=== PATIENT | female | born 1945 | race Caucasian/White ===

== ENCOUNTER 2021-12-03 16:27 | Emergency (ER) | payer MEDICARE, SELFPAY ==
--- NOTE | ~2021-12-03 | XR_ITS ---
EXAMINATION: XR CHEST CLINICAL INFORMATION: Chest pain. COMPARISON: None TECHNIQUE: 2 views of the chest were obtained. FINDINGS: The lungs are clear. The heart and mediastinal structures are unremarkable. Moderate thoracolumbar levoscoliosis. XR/XR chest 2V IMPRESSION: No acute cardiopulmonary process.
--- NOTE | 2021-12-03 16:34 | ECG_ITS ---
Test Reason : CHEST PAIN Blood Pressure : / mmHG Vent. Rate : 071 BPM Atrial Rate : 071 BPM P-R Int : 128 ms QRS Dur : 068 ms QT Int : 392 ms P-R-T Axes : 064 073 073 degrees QTc Int : 425 ms Normal sinus rhythm Possible Left atrial enlargement Nonspecific ST abnormality Abnormal ECG No previous ECGs available Referred By: Generic ED Physician Electronically Signed By:Jose R Hollingsworth
[2021-12-03 16:41] VITALS: BP 151/85; BP 166/86; PULSE 75; PULSE 80; RESP 14; TEMP 37.1; O2SAT 96; O2SAT 98; BMI 19.5
--- NOTE | 2021-12-03 16:59 | ED_ITS ---
HPI - Chest Pain General Chief Complaint: Chest Pain Stated Complaint: CP Time Seen by Provider: 12/03/21 16:39 Source: patient and EMS Mode of arrival: EMS Limitations: no limitations History of Present Illness HPI narrative: 76 yo female with history of osteoporosis, GERD here with complaints left sided chest pain with radiation to the left breast which occurred while at rest while patient was talking on the phone at 4pm. Pain lasted 15-20 minutes and is described as sharp/stabbing pain. No associated diaphoresis, nausea/vomiting, shortness of breath, dizziness, palpitations. 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 No chest pain on arrival to ED. Patient denies recent cough, cold, fevers, chills, leg swelling or leg pain. No recent travel. Patient does tell me her sister yesterday and her upcoming is this . Related Data Allergies Allergy/AdvReac Type Severity Reaction Status Date / Time No Known Allergies Allergy Verified 12/03/21 16:51 Review of Systems Review of Systems: Yes all other systems are reviewed and are negative Constitutional: Constitutional: Reports no additional constitutional complaints, Denies body ache(s), Denies chills, Denies fever(s), Denies headache(s) and Denies weakness Eyes: Eyes: Reports no additional eye complaints and Denies change in vision ENT: Reports system reviewed and no additional complaints, except as documented, Denies dizziness, Denies headache(s), Denies nasal congestion, Denies nasal discharge and Denies neck pain Cardiovascular: Cardiovascular: Reports no additional cardiovascular complai nts, Reports chest pain, Denies leg edema and Denies dyspnea Respiratory: Respiratory: Reports no additional respiratory complaints, Denies cough and Denies dyspnea Gastrointestinal: Gastrointestinal: Reports no additional gastrointestinal complaints, Denies abdominal pain, Denies diarrhea, Denies nausea and Denies vomiting Genitourinary: Genitourinary: Reports no additional female genitourinary complaints and Denies urinary incontinence Musculoskeletal: Musculoskeletal: Reports no additional musculoskeletal complaints, Denies back pain, Denies arthralgias, Denies joint swelling, Denies neck pain, Denies numbness and Denies tingling Integumentary/Breasts: Skin/Breast: Reports system reviewed and no additional complaints, except as docu and Denies rash Neurologic: Reports system reviewed and no additional complaints, except as documented, Denies Abnormal speech present, Denies dizziness, Denies headache(s), Denies numbness, Denies tingling and Denies weakness PMFSH Past Medical History Attestation statement: The following information was validated with the patient. Source: old records reviewed and nursing notes reviewed Medical History (Updated 12/03/21 @ 21:19 by Annmarie Solis NP) GERD (gastroesophageal reflux disease) Osteoporosis Social History Social History (Updated 12/03/21 @ 17:05 by Annmarie Solis NP) Alcohol intake: current Alcohol intake frequency: holidays/special occasions only Patient Tobacco Use Status: Never used Tobacco Advance Directives: Yes Advance Directives Information Provided: No Advance Directives on File: No Physical Exam Vital Signs: Vital Signs: Last Vital Signs Temp 98.7 F 12/03/21 16:41 Pulse 76 12/03/21 21:40 Resp 14 12/03/21 21:40 BP 183/79 H 12/03/21 21:40 Pulse Ox 98 12/03/21 21:40 O2 Del Method 12/03/21 21:40 BMI result Body Mass Index 19.5 Const: General: cooperative, healthy appearing, comfortable and no acute distress Orientation/consciousness: patient oriented x3 Limitations: no limitations HEENT: Head: Yes normal to inspection Ears: hearing grossly normal bilaterally General nose exam: Normal external nose present Face and sinus: Yes normal facial exam Mouth: Normal oral and palatal mucosa present Throat: Yes posterior oropharynx normal Eyes: General: appearance normal, both eyes and all related structures Pupils: Equal, round and reactive pupils present Neck: Neck: Yes normal visual inspection Chest: Chest palpation & inspection: normal inspection of the chest Resp: Effort & Inspection: normal respiratory effort Auscultation: clear to auscultation bilaterally Cardio: Rate: regular rate Rhythm: regular rhythm Peripheral pulses: Peripheral pulses 2+ throughout GI: Inspection: Yes normal to inspection Palpation (GI): Soft to palpation and nontender Auscultation: normal bowel sounds Back/Spine/Pelvis: Thoracic/Lumbar Spine: thoracic and lumbar spine normal to inspection Skin: General skin exam: no rashes or lesions noted Neuro: General: patient oriented x3, no focal motor deficits and normal sensation to monofilament Cranial nerves: Yes Equal, round and reactive pupils present Cognition (Neuro): normal cognition Speech: No Abnormal speech present Gait exam (Neuro): Normal gait present Motor exam (neuro): 5/5 motor strength present throughout Extrem: General: Yes normal to inspection, Yes no pedal edema and Yes no calf tenderness Course Course Course Narrative: 183-initial set of labs, chest x-ray and EKG show no acute finding. Plan to repeat a 3 hour troponin. Patient has had no chest pain since being in the emergency room. Reevaluation(s) Reevaluation #1: Second troponin unchanged. Patient has had no chest pain while being in the emergency department. She feels well. Heart score 2 for age. Chest pain is at ypical for ACS. Discussed this with the patient and her daughter. Plan for discharge home with follow-up with her primary care doctor outpatient. She will return for any returning chest pain, shortness of breath, vomiting or diaphoresis. Comfortable plan for discharge home. 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 No chest pain here. Atypical for ACS D/t age still consider ACS so will obtain EKG, labs, CXR Already received ASA Differential Diagnosis Differential diagnosis: Likely chest pain Medical Records Data Attestation: I reviewed the patient's medical records. Lab Data Attestation: I reviewed the patient's lab results. Result diagrams: 12/03/21 17:39 12/03/21 17:38 Labs: Lab Results 12/03/21 12/03/21 12/03/21 Range/Units 17:38 17:38 17:39 WBC 4.8 (4.8-10.8) X10*3/uL RBC 3.58 L (4.20-5.50) X10*6/uL Hgb 12.0 (12.0-16.0) g/dl Hct 36.3 L (37.0-47.0) % MCV 101.4 H (80.0-98.0) fL MCH 33.5 H (27.0-33.0) pg MCHC 33.1 (31.0-35.0) g/dl RDW 14.1 (11.0-16.0) % Plt Count 223 (160-400) X10*3/uL MPV 10.6 (9.4-12.3) fL Immature Gran % (Auto) 0.2 (0.0-0.4) % Neut % (Auto) 64.3 (45-73) % Lymph % (Auto) 23.3 (20-40) % Garfield % (Auto) 10.5 (2-11) % Eos % (Auto) 1.1 (0-4) % Baso % (Auto) 0.6 (0-2) % Lymph # (Auto) 1.1 L (1.2-4.9) X10*3/uL Garfield # (Auto) 0.5 (0.1-1.2) X10*3/uL Eos # (Auto) 0.1 (0.0-0.4) X10*3/uL Baso # (Auto) 0.0 (0.0-0.2) X10*3/uL Abs Immat Gran (auto) 0.01 (0.00-0.03) X10*3/uL Absolute Neuts (auto) 3.1 (2.0-8.3) x10*3/uL Absolute Nucleated RBC 0.000 (0.0-0.012) X10*3/uL Nucleated RBC % (auto) 0.0 (0.0-0.2) /100WBC PT (9.9-13.0) SEC INR (0.9-1.1) Sodium 142 (135-145) mmol/L Potassium 4.1 (3.3-5.1) mmol/L Chloride 107 (96-108) mmol/L Carbon Dioxide 27 (22-29) mmol/L Anion Gap 12 (12-20) BUN 20 H (9-16) mg/dL Creatinine 0.81 (0.5-1.4) mg/dL Estim Creat Clear Calc 47.3 Estimated GFR > 60 Random Glucose 107 (60-115) mg/dL Calcium 9.5 (8.4-10.2) mg/dL Magnesium 2.3 (1.6-2.6) mg/dL Total Bilirubin 0.4 (0.0-1.0) mg/dL Direct Bilirubin < 0.2 (0.0-0.5) mg/dL AST 27 (5-31) U/L ALT 30 (0-31) U/L Alkaline Phosphatase 75 (39-117) U/L Troponin I High Sens 3.6 (<3.5-17.0) ng/L Total Protein 6.3 L (6.5-8.0) g/dL Albumin 4.0 (3.5-5.0) g/dL COVID-19 ([facility]) (Negative) COVID-19 Clin Com 12/03/21 12/03/21 12/03/21 Range/Units 17:39 17:40 20:28 WBC (4.8-10.8) X10*3/uL RBC (4.20-5.50) X10*6/uL Hgb (12.0-16.0) g/dl Hct (37.0-47.0) % MCV (80.0-98.0) fL MCH (27.0-33.0) pg MCHC (31.0-35.0) g/dl RDW (11.0-16.0) % Plt Count (160-400) X10*3/uL MPV (9.4-12.3) fL Immature Gran % (Auto) (0.0-0.4) % Neut % (Auto) (45-73) % Lymph % (Auto) (20-40) % Garfield % (Auto) (2-11) % Eos % (Auto) (0-4) % Baso % (Auto) (0-2) % Lymph # (Auto) (1.2-4.9) X10*3/uL Garfield # (Auto) (0.1-1.2) X10*3/uL Eos # (Auto) (0.0-0.4) X10*3/uL Baso # (Auto) (0.0-0.2) X10*3/uL Abs Immat Gran (auto) (0.00-0.03) X10*3/uL Absolute Neuts (auto) (2.0-8.3) x10*3/uL Absolute Nucleated RBC (0.0-0.012) X10*3/uL Nucleated RBC % (auto) (0.0-0.2) /100WBC PT 11.0 (9.9-13.0) SEC INR 1.0 (0.9-1.1) Sodium (135-145) mmol/L Potassium (3.3-5.1) mmol/L Chloride (96-108) mmol/L Carbon Dioxide (22-29) mmol/L Anion Gap (12-20) BUN (9-16) mg/dL Creatinine (0.5-1.4) mg/dL Estim Creat Clear Calc Estimated GFR Random Glucose (60-115) mg/dL Calcium (8.4-10.2) mg/dL Magnesium (1.6-2.6) mg/dL Total Bilirubin (0.0-1.0) mg/dL Direct Bilirubin (0.0-0.5) mg/dL AST (5-31) U/L ALT (0-31) U/L Alkaline Phosphatase (39-117) U/L Troponin I High Sens 4.3 (<3.5-17.0) ng/L Total Protein (6.5-8.0) g/dL Albumin (3.5-5.0) g/dL COVID-19 ([facility]) Negative (Negative) COVID-19 Clin Com See Note Imaging Data Chest x-ray: Attestation: I personally reviewed and interpreted this imaging study as follows: Radiologist's impression: [address] [address] XRay Report Signed Patient: Jocelin Edwards MR#: [id number] : 1945 Acct:[id number] Age/Sex: 76 / F ADM Date: 12/03/21 Loc: .ED Attending Dr: Ordering Physician: Annmarie Solis NP Date of Service: 12/03/21 Procedure(s): XR chest 2V Accession Number(s): [id number] cc: Annmarie Solis NP~ EXAMINATION: XR CHEST CLINICAL INFORMATION: Chest pain. COMPARISON: None TECHNIQUE: 2 views of the chest were obtained. FINDINGS: The lungs are clear. The heart and mediastinal structures are unremarkable. Moderate thoracolumbar levoscoliosis. XR/XR chest 2V IMPRESSION: No acute cardiopulmonary process. ECG Data ECG #1: Attestation: I personally reviewed and interpreted this ECG as follows: ECG interpretation date: 12/03/21 ECG interpretation time: 16:28 Interpretation: NSR with rate 71, normal pr, normal qrs, normal qt Discharge Plan Discharge Clinical Impression: Chest pain Patient Disposition: Home, Self-Care Instructions: Chest Pain (DC) Additional Instructions: Your blood work, EKG and x-ray are all very reassuring. This tells us that you are at low risk for having had a cardiac event Please return for any chest pain, diaphoresis, vomiting, shortness of breath Please follow-up with your regular primary care doctor Referrals: Physician,Nonstaff [Primary Care Provider] - 1 week Interventions: ED Discharge Assessment Last Done: 12/03/21 21:56 Discharge Date/Time: 12/03/21 21:56
[2021-12-03 17:44] LABS: MANUAL DIFF FLAG NO
[2021-12-03 18:02] LABS: COVID-19 Test Negative (Negative)
[2021-12-03 18:04] LABS: Basophils Percent Auto 0.6 % (0-2); Eosinophils Absolute Auto 0.1 X10*3/uL (0.0-0.4); Eosinophils Percent Auto 1.1 % (0-4); Hematocrit 36.3 % (37.0-47.0); Imm Gran Abs Auto 0.01 X10*3/uL (0.00-0.03); Imm Gran Pct Auto 0.2 % (0.0-0.4); Lymphocytes Absolute Auto 1.1 X10*3/uL (1.2-4.9); Lymphocytes Percent Auto 23.3 % (20-40); Mean Corpuscular HGB Conc 33.1 g/dl (31.0-35.0); Mean Corpuscular Hemoglobin 33.5 pg (27.0-33.0); Mean Corpuscular Volume 101.4 fL (80.0-98.0); Mean Platelet Volume 10.6 fL (9.4-12.3); Monocytes Absolute Auto 0.5 X10*3/uL (0.1-1.2); Monocytes Percent Auto 10.5 % (2-11); Neutrophils Absolute Auto 3.1 x10*3/uL (2.0-8.3); Neutrophils Percent Auto 64.3 % (45-73); Platelet Count 223 X10*3/uL (160-400); Red Blood Count 3.58 X10*6/uL (4.20-5.50); Red Cell Distribution Width 14.1 % (11.0-16.0); White Blood Count 4.8 X10*3/uL (4.8-10.8)
[2021-12-03 18:05] LABS: Alanine Aminotransferase 30 U/L (0-31); Alkaline Phosphatase 75 U/L (39-117); Anion Gap 12 (12-20); Aspartate Amino Transferase 27 U/L (5-31); Bilirubin Direct < 0.2 mg/dL (0.0-0.5); Bilirubin Total 0.4 mg/dL (0.0-1.0); Blood Urea Nitrogen 20 mg/dL (9-16); Calcium 9.5 mg/dL (8.4-10.2); Carbon Dioxide 27 mmol/L (22-29); Chloride 107 mmol/L (96-108); Creatinine Clr Calc Pharmacy 47.3; Estimated Glomerular Filt Rate > 60; Glucose Random 107 mg/dL (60-115); Magnesium 2.3 mg/dL (1.6-2.6); Potassium 4.1 mmol/L (3.3-5.1); Sodium 142 mmol/L (135-145); Total Protein 6.3 g/dL (6.5-8.0)
[2021-12-03 18:09] LABS: Troponin-I High Sensitivity 3.6 ng/L (<3.5-17.0)
[2021-12-03 19:18] VITALS: BP 138/70; PULSE 76; RESP 14; O2SAT 98
--- NOTE | 2021-12-03 19:19 | PC.NURSE ---
Pt resting, daughter at bedside, call light in reach, this RN continues to monitor.
[2021-12-03 21:03] LABS: Troponin-I High Sensitivity 4.3 ng/L (<3.5-17.0)
[2021-12-03 21:25] VITALS: BP 109/67; PULSE 85; RESP 14; O2SAT 98
[2021-12-03 21:40] VITALS: BP 183/79; PULSE 76; RESP 14; O2SAT 98
== END 2021-12-03 21:56 | disposition home or self-care (01) ==
PROVIDERS: Nurse Practitioner Family; Emergency Provider Emergency Medicine Emergency Medical Services
DX: R07.9 Chest pain, unspecified (principal); Z20.822 Contact with and (suspected) exposure to COVID-19
CPT/HCPCS: 36415; 71046; 80048; 80076; 83735; 84484; 85025; 85610; 87635; 93005; 99283; 99284

== ENCOUNTER 2022-01-15 16:16 | Outpatient (REF) | payer MEDICARE, SELFPAY ==
[2022-01-15 17:50] LABS: Lipase 41 U/L (8-78)
[2022-01-15 17:55] LABS: TSH reflex Free T4 2.94 uIU/mL (0.32-4.0)
[2022-01-15 18:13] LABS: Amylase 175 U/L (28-100)
[2022-01-15 18:14] LABS: Vitamin B12 > 2000 pg/mL (200-900)
[2022-01-16 13:45] LABS: H Pylori Breath Test Negative (Negative)
[2022-01-19 13:46] LABS: Transglutaminase Ab IgG <1.0 U/mL; Transglutaminase IgA <1.0 U/mL
[2022-01-23 14:07] LABS: Vitamin D 25-OH, D2 <4 ng/mL; Vitamin D 25-OH, D3 81 ng/mL; Vitamin D 25-OH, Total 81 ng/mL (30-100)
== END 2022-01-15 16:17 | disposition home or self-care (01) ==
LOC: HO.LAB 16:16
PROVIDERS: Visit Provider Nurse Practitioner Family
DX: R10.12 Left upper quadrant pain (principal); K21.9 Gastro-esophageal reflux disease without esophagitis; R63.4 Abnormal weight loss; R12 Heartburn; K58.2 Mixed irritable bowel syndrome; E55.9 Vitamin D deficiency, unspecified
CPT/HCPCS: 36415; 82150; 82306; 82607; 82746; 83013; 83690; 84443; 86364; 99202

== ENCOUNTER 2022-01-18 13:17 | Outpatient (REF) | payer MEDICARE, SELFPAY ==
[2022-01-25 19:32] LABS: Pancreatic Elastase-1 >500 mcg/g
== END 2022-01-18 13:18 | disposition home or self-care (01) ==
LOC: HO.LNP 13:17
PROVIDERS: Visit Provider Nurse Practitioner Family
DX: R10.9 Unspecified abdominal pain (principal)
CPT/HCPCS: 82656

== ENCOUNTER 2022-02-26 14:23 | Outpatient (REF) | payer MEDICARE, SELFPAY ==
[2022-02-26 15:13] LABS: Amylase 185 U/L (28-100)
== END 2022-02-26 14:24 | disposition home or self-care (01) ==
LOC: HO.LAB 14:23
PROVIDERS: Visit Provider Nurse Practitioner Family
DX: K21.9 Gastro-esophageal reflux disease without esophagitis (principal)
CPT/HCPCS: 36415; 82150; 99212

== ENCOUNTER 2022-03-11 08:18 | Outpatient (REF) | payer MEDICARE, SELFPAY ==
--- NOTE | ~2022-03-11 | US_ITS ---
EXAMINATION: US ABDOMEN COMPLETE CLINICAL INFORMATION: Abdominal pain. COMPARISON: None TECHNIQUE: Real-time imaging of the abdominal viscera. FINDINGS: PANCREAS: Normal. ABDOMINAL AORTA: The proximal, mid, and distal segments are normal in caliber. INFERIOR VENA CAVA: Visualized portions are normal. LIVER: The liver is normal in size. The liver contour is normal. Parenchymal echogenicity is heterogeneous, with pericholecystic sparing. No focal hepatic lesion. There is no intrahepatic biliary duct dilatation seen. GALLBLADDER: A layering, shadowing calculus is noted, without wall thickening or pericholecystic fluid. COMMON BILE DUCT: Normal in caliber measuring 0.4 cm in diameter. RIGHT KIDNEY: Normal. No hydronephrosis. No renal calculi or focal parenchymal lesions. The kidney measures 9.4 cm in maximum dimension. LEFT KIDNEY: At the lower pole, a 2 mm nonobstructing calculus is seen. There is mild hydronephrosis. No focal parenchymal lesions. The kidney measures 9.0 cm in maximum dimension. SPLEEN: Normal. The spleen measures 7.9 cm in maximum dimension. FREE FLUID: None. US/US abdomen complete IMPRESSION: 1. There is mild cholelithiasis, without cholecystitis or choledocholithiasis seen. 2. Findings are consistent with hepatic steatosis. 3. A 2 mm nonobstructing left renal calculus is seen. There is mild left hydronephrosis.
== END 2022-03-11 08:19 | disposition home or self-care (01) ==
LOC: HO.HMGCX 08:18
PROVIDERS: PCP Internal Medicine; Visit Provider Nurse Practitioner Family
DX: R10.9 Unspecified abdominal pain (principal)
CPT/HCPCS: 76700

== ENCOUNTER 2022-03-23 12:15 | Outpatient (REF) | payer MEDICARE, SELFPAY ==
[2022-03-23 13:03] LABS: Blood Urea Nitrogen 18 mg/dL (9-16); Estimated Glomerular Filt Rate > 60
== END 2022-03-23 12:16 | disposition home or self-care (01) ==
LOC: HO.LAB 12:15
PROVIDERS: PCP Internal Medicine; Visit Provider Nurse Practitioner Family
DX: R10.11 Right upper quadrant pain (principal)
CPT/HCPCS: 36415; 82565; 84520

== ENCOUNTER 2022-03-25 13:49 | Outpatient (REF) | payer MEDICARE, SELFPAY ==
--- NOTE | ~2022-03-25 | CT_ITS ---
EXAMINATION: CT ABDOMEN AND PELVIS WITH CONTRAST CLINICAL INFORMATION: Abdominal pain. COMPARISON: None. TECHNIQUE: Multidetector volumetric images were obtained from the superior aspect of the liver through the pubic symphysis following administration 85 mL of Omnipaque 350 intravenous contrast. Sagittal and coronal reformatted images were obtained on the technologist's workstation. Oral contrast: No This CT examination was performed using dose optimization techniques as appropriate, variously including the following: *Automated exposure control *Adjustment of mA and/or kV according to patient size (this includes techniques or standardized protocols for targeted exams where dose is matched to indication/reason for exam; i.e. extremities or head) *Use of iterative reconstruction technique DLP: 159 mGy-cm. FINDINGS: LUNG BASES: Minimal atelectatic changes seen in the right middle lobe and left lung base. LIVER, GALLBLADDER, AND BILIARY TREE: The liver is normal in size, shape, and attenuation. No focal hepatic lesion or biliary ductal dilatation is present. The gallbladder is unremarkable with no evidence of radiopaque gallstones, gallbladder wall thickening, or obvious pericholecystic inflammatory changes. PANCREAS: Unremarkable. SPLEEN: Unremarkable. ADRENAL GLANDS: Unremarkable. KIDNEYS AND URETERS: The kidneys are normal in size, shape, and attenuation. No hydronephrosis, hydroureter, or calculi seen. No perinephric stranding. BLADDER: Unremarkable. GASTROINTESTINAL TRACT: There is a large amount of stool seen throughout the colon consistent with severe constipation. No mural thickening seen. There is oral contrast opacifying the small bowel loops which are normal caliber. Appendix is not seen. The stomach is distended with oral contrast and food residue. ABDOMINAL WALL: No significant hernia is appreciated. LYMPH NODES: Normal. VASCULAR: Unremarkable. PELVIC VISCERA: There is no free air or free fluid. The uterus is atrophic. No adnexal mass seen. No abnormal pelvic or inguinal lymph nodes. OSSEOUS STRUCTURES: There is levoscoliosis. No aggressive lytic or sclerotic process seen. There are degenerative disc changes L4-L5 disc level. CT/CT abdomen pelvis w IV con IMPRESSION: Severe constipation with large amount of stool seen throughout the colon. There is oral contrast in the small bowel loops but they are not dilated. No acute intra-abdominal process seen. Fleischner guidelines were followed.
[2022-03-25] MEDS: Barium Sulfate Oral (Berry) 450 ML ORAL.SUSP 900 ML PO (16:54)
[2022-03-25] MEDS: iohexoL 350 MG/ML 75 ML INFUS..BTL 85 ML IV (16:55)
== END 2022-03-25 13:50 | disposition home or self-care (01) ==
LOC: HO.CT 13:49
PROVIDERS: Visit Provider Nurse Practitioner Family
DX: R10.9 Unspecified abdominal pain (principal)
CPT/HCPCS: 74177; Q9967

== ENCOUNTER → 2022-04-02 10:25 | Outpatient (BNVA) | payer MEDICARE, SELFPAY | PROVIDERS: PCP Internal Medicine; Visit Provider Internal Medicine Gastroenterology | DX: K21.9 Gastro-esophageal reflux disease without esophagitis (principal); R74.8 Abnormal levels of other serum enzymes | CPT/HCPCS: 99212 ==

== ENCOUNTER 2022-04-08 11:00 | Day surgery (SDC) | payer MEDICARE, SELFPAY ==
--- NOTE | 2022-04-07 08:39 | HO.ANESPROP2 ---
Documented by User: Yenifer Nance NP 04/07/22 08:40 HPI - Anesthesia Eval Consult details Narrative: 77yo F for Upper Endoscopy and Colonoscopy PMF Active Problems Active Problems: All Active Problems (Updated 04/05/22 @ 09:56 by Mavis James MD) Elevated MCV (Acute) Past Medical History Medical History (Updated 04/05/22 @ 09:56 by Mavis James MD) GERD (gastroesophageal reflux disease) Hearing deficit IBS (irritable bowel syndrome) Osteoporosis Surgical History Surgical History (Updated 04/05/22 @ 09:56 by Mavis James MD) History of bilateral ligation of fallopian tubes History of esophagogastroduodenoscopy (EGD) Hx of appendectomy Hx of colonoscopy Social History Social History (Updated 04/05/22 @ 09:53 by Keren Levin) Household Members: None Housing: House Alcohol intake: current Alcohol intake frequency: holidays/special occasions only Patient Tobacco Use Status: Never used Tobacco service: No Current occupational status: unemployed Meds Allergies Allergy/AdvReac Type Severity Reaction Status Date / Time alendronate sodium Allergy Mild unknown Verified 04/02/22 10:32 [From Fosamax] Exam Exam Date and Time: April 07, 2022 0839 Pertinent Lab Results Pertinent Lab Results: Laboratory Tests 12/03/21 03/23/22 04/05/22 17:38 12:24 10:22 WBC 3.4 L Hgb 12.3 Hct 36.4 L Plt Count 199 Sodium 142 Potassium 4.1 Chloride 107 Carbon Dioxide 27 BUN 18 H Creatinine 0.82 Narrative Narrative: EKG 11/2021 Vent. Rate : 071 BPM ? ? Atrial Rate : 071 BPM ?? P-R Int : 128 ms? QRS Dur : 068 ms ? ? QT Int : 392 ms ? ? ? P-R-T Axes : 064 073 073 degrees ?? QTc Int : 425 ms ? Normal sinus rhythm Possible Left atrial enlargement Nonspecific ST abnormality Abnormal ECG No previous ECGs available Assessment and Plan Assessment Anesthesia Assessment: Chart Reviewed Documented by User: Ilya Jensen MD 04/08/22 17:55 PMFSH Past Medical History Medical History (Updated 04/05/22 @ 09:56 by Mavis James MD) GERD (gastroesophageal reflux disease) Hearing deficit IBS (irritable bowel syndrome) Osteoporosis Family History Family history of problems with anesthesia: No Surgical History Surgical History (Updated 04/05/22 @ 09:56 by Mavis James MD) History of bilateral ligation of fallopian tubes History of esophagogastroduodenoscopy (EGD) Hx of appendectomy Hx of colonoscopy History of Problems with Anesthesia: No Social History Social History (Updated 04/05/22 @ 09:53 by Keren Levin) Household Members: None Housing: House Alcohol intake: current Alcohol intake frequency: holidays/special occasions only Patient Tobacco Use Status: Never used Tobacco service: No Current occupational status: unemployed Meds Allergies Allergy/AdvReac Type Severity Reaction Status Date / Time alendronate sodium Allergy Mild unknown Verified 04/02/22 10:32 [From Fosamax] Exam Airway Mallampati Class: III TM Dist: <=3cm Neck ROM: Full Loose/Missing/Broken Teeth: Yes Heart: S1,S2 Lungs: b/l breath sounds Assessment and Plan Assessment Anesthesia Assessment: Anesthesia Plan Discussed Final Anesthetic Review Family History of Problems with Anesthesia: No History of Problems with Anesthesia: No NPO: Yes ASA Class: II Final Preanesthetic Review: Meds/Allgs Chart Reviewed, Consent Obtained/Reviewed and Anes Risks/Benef Reviewed Patient Risk: Intermediate Procedure Risk: Intermediate Anesthetic Plan Anesthetic Plan: MAC: Disposition: Standard PACU
--- NOTE | 2022-04-08 10:28 | MHC.SHP ---
Pre-Procedural Eval Section A Date of Service: 04/08/22 The patient is an INPATIENT: No The History & Physical has been completed within 30 days and I have reviewed it.: Yes Section B Chief Complaint: Gastro-esophageal reflux disease without esophagit Allergies: Allergies Allergy/AdvReac Type Severity Reaction Status Date / Time alendronate sodium Allergy Mild unknown Verified 04/02/22 10:32 [facility] Plan Diagnosis/Plan: Unchanged I have reviewed the history and physical and performed a pertinent physical examination on my patient. No changes have occurred unless specified.
[2022-04-08 11:24] VITALS: BP 138/76; PULSE 69; RESP 18; TEMP 36.8; O2SAT 97; BMI 19.6
[2022-04-08] MEDS: Lactated Ringers 1,000 ML 100 ML IVCONT (11:31)
--- NOTE | 2022-04-08 11:52 | P.OP_ITS ---
Operative Note Operative Note Date of Service: 04/08/22 Narrative: Operative Information Procedure Description: EGD, Colonoscopy Indication: satiety, weight loss Anesthesia: MAC FLEXIBLE TRANSORAL UPPER GASTROINTESTINAL ENDOSCOPY AND COLONOSCOPY PROCEDURE NOTE UPPER ENDOSCOPY Consent: Indications for the procedure and potential complications of bleeding, perforation, reaction to medications and missed diagnosis were discussed with the patient and informed consent was obtained. Instrument: Olympus GIF H 190 J mid size upper endoscope Monitoring: Vital signs and clinical assessment, continuous EKG monitoring, Pulse oximetry, Carbon Dioxide monitoring and blood pressure monitoring were done throughout the procedure. Procedure: The patient was placed in the left lateral decubitis position and pre-procedure medications were administered and a bite block was placed. The endoscope was inserted into the mouth and advanced under direct vision to the third part of duodenum. A careful inspection was made as the upper endoscope was withdrawn including a retroflexed examination of the proximal stomach; Findings and interventions are described below. Findings: Larynx:normal Esophagus: GE junction at 36 cm, diaphragm hiatus at 38 cm, small sliding hiatal hernia with esophagitis notedand lax LES , bx taken from GEJ and distal esophagus Stomach: Streaky gastritis with many fundic gland appearing polyps. Biopsies were obtained from stomach and from some of the polyps. Grade 3 flap valve on retroflexed examination of the cardia. Duodenum: Normal bulb and descending duodenum, bx taken Intervention: Biopsies as noted above COLONOSCOPY Instrument: Olympus variable stiffness pediatric scope 190L Colonoscopy Monitoring: Vital signs and clinical assessment, continuous EKG monitoring, Pulse oximetry, Carbon Dioxide monitoring and blood pressure monitoring were done throughout the procedure. Colon withdrawal time was 10 minutes. Procedure: The patient was placed in the left lateral decubitis position and pre-procedure medications were administered. After a digital rectal examination of the ano-rectum, the video colonoscope was inserted into the rectum and advanced through the colon to the cecum/TI. The colonoscope was slowly withdrawn in a retrograde panoramic fashion and the colon mucosa was carefully examined including a retroflexed view of the rectum. Findings and interventions are described below. Procedure Difficulty:moderate Findings: Terminal Ileum-normal, bx taken random colon bx taken Cecum:normal Ascending Colon: normal Transverse Colon -normal Descending Colon:normal Sigmoid Colon: normal Rectum: Retroflexion with small internal hemorrhoids, grade I Anorectum - normal Colon preparation: [place] Bowel Preparation Scale Right colon; 3 Transverse colon: 3 Left colon; 3 (0 = Unprepared colon segment with mucosa not seen due to solid stool that cannot be cleared. 1 = Portion of mucosa of the colon segment seen, but other areas of the colon segment not well seen due to staining, residual stool and/or opaque liquid. 2 = Minor amount of residual staining, small fragments of stool and/or opaque liquid, but mucosa of colon segment seen well. 3 = Entire mucosa of colon segment seen well with no residual staining, small fragments of stool or opaque liquid) Impression and Post Procedure Diagnosis: Endoscopy Findings: hiatal hernia esophagitis gastritis gastric polyps Colonoscopy Findings: internal hemorrhoids Plan: Await Pathology results No further screening colonoscopy unless clinically indicated for other reasons High fiber diet leaflet avoid straining at stool, epsom salts and sitz bath, anusol supps or cream reflux precautions, cont with PPI Above findings were reviewed with the patient and relevant handouts were provided if indicated.
[2022-04-08 13:02] VITALS: BP 96/59; PULSE 85; RESP 18; TEMP 36.4; O2SAT 98
[2022-04-08 13:20] VITALS: BP 124/57; PULSE 55; RESP 18; TEMP 36.7; O2SAT 99
== END 2022-04-08 14:03 | disposition home or self-care (01) ==
PROVIDERS: PCP Internal Medicine; Visit Provider Internal Medicine Gastroenterology
PROC: (CPT 45380; principal; 2022-04-08 12:30)
DX: K58.0 Irritable bowel syndrome with diarrhea (principal); K64.0 First degree hemorrhoids; K21.9 Gastro-esophageal reflux disease without esophagitis; K44.9 Diaphragmatic hernia without obstruction or gangrene; K20.80 Other esophagitis without bleeding; K29.50 Unspecified chronic gastritis without bleeding; K31.7 Polyp of stomach and duodenum; M81.0 Age-related osteoporosis without current pathological fracture; Z88.8 Allergy status to other drugs, medicaments and biological substances
CPT/HCPCS: 45380; 43239; 88305; 88342; C1726

== ENCOUNTER → 2022-06-07 14:42 | Outpatient (BNVA) | payer MEDICARE, SELFPAY | PROVIDERS: PCP Internal Medicine; Visit Provider Internal Medicine Gastroenterology | DX: K21.9 Gastro-esophageal reflux disease without esophagitis (principal); K59.00 Constipation, unspecified; R63.4 Abnormal weight loss; Z68.1 Body mass index [BMI] 19.9 or less, adult | CPT/HCPCS: 99212 ==

== ENCOUNTER 2022-06-14 13:44 | Outpatient (REF) | payer MEDICARE, SELFPAY ==
--- NOTE | ~2022-06-14 | MR_ITS ---
EXAMINATION: MR ABDOMEN WITHOUT AND WITH CONTRAST CLINICAL INFORMATION: Weight loss with upper abdominal pain. COMPARISON: CT abdomen/pelvis 03/25/2022. TECHNIQUE: MR abdomen was performed without and with use of 4.5 mL intravenous Gadavist gadolinium contrast. Postcontrast images are performed in multiphase dynamic sequences. Imaging was performed in 3 planes. FINDINGS: LUNG BASES: The visualized lung bases are unremarkable. LIVER, GALLBLADDER, AND BILIARY TREE: The liver is normal in size, shape and attenuation. There is a 0.7 cm T2 bright simple cyst in the left hepatic lobe. No enhancing liver lesion. PANCREAS: Evaluation is limited due to paucity of abdominal fat and gastric distention. However, accounting for these limitations, no discrete focal pancreatic lesions are noted. The main pancreatic duct is nondilated. There is no significant peripancreatic free fluid nor fat stranding. SPLEEN: Normal size. No focal lesion. ADRENAL GLANDS: No adrenal mass. KIDNEYS AND URETERS: Left-sided parapelvic renal cysts, for which no imaging follow up is recommended. Symmetric nephrograms. No hydronephrosis. GASTROINTESTINAL TRACT: Significant gastric distention. Large amount of stool content throughout the colon. ABDOMINAL WALL: No significant hernia is appreciated. LYMPH NODES: Evaluation is very limited due to paucity of abdominal mesenteric fat. No bulky lymphadenopathy is noted. VASCULAR: Normal diameter of the abdominal aorta. The main portal vein is patent. OSSEOUS STRUCTURES: S-shaped scoliosis of the thoracolumbar spine with multilevel degenerative changes. Stable mild compression deformity at L3. MR/MR abdomen wo/w con IMPRESSION: 1. No discrete pancreatic lesion. 2. Nonspecific gastric distention, for which differentials include gastroparesis and gastric outlet obstruction. Correlate clinically and if deemed appropriate, consider further evaluation with a nuclear medicine gastric emptying study or upper endoscopy. 3. Large colonic stool burden suggesting a slow transit and constipation.
== END 2022-06-14 13:45 | disposition home or self-care (01) ==
LOC: HO.MRI 13:44
PROVIDERS: Visit Provider Internal Medicine Gastroenterology
DX: K86.89 Other specified diseases of pancreas (principal)
CPT/HCPCS: 74183; A9585

== ENCOUNTER 2022-08-03 10:46 | Outpatient (REF) | payer MEDICARE, SELFPAY ==
[2022-08-03 10:56] LABS: MANUAL DIFF FLAG NO
[2022-08-03 11:32] LABS: Basophils Absolute Auto 0.1 X10*3/uL (0.0-0.2); Eosinophils Absolute Auto 0.1 X10*3/uL (0.0-0.4); Eosinophils Percent Auto 1.6 % (0-4); Hematocrit 39.9 % (37.0-47.0); Hemoglobin 12.8 g/dl (12.0-16.0); Imm Gran Abs Auto 0.01 X10*3/uL (0.00-0.03); Imm Gran Pct Auto 0.2 % (0.0-0.4); Lymphocytes Absolute Auto 1.2 X10*3/uL (1.2-4.9); Lymphocytes Percent Auto 23.5 % (20-40); Mean Corpuscular HGB Conc 32.1 g/dl (31.0-35.0); Mean Corpuscular Hemoglobin 32.7 pg (27.0-33.0); Mean Platelet Volume 10.7 fL (9.4-12.3); Monocytes Absolute Auto 0.4 X10*3/uL (0.1-1.2); Monocytes Percent Auto 8.8 % (2-11); Neutrophils Absolute Auto 3.2 x10*3/uL (2.0-8.3); Neutrophils Percent Auto 64.9 % (45-73); Platelet Count 230 X10*3/uL (160-400); Red Blood Count 3.91 X10*6/uL (4.20-5.50); Red Cell Distribution Width 13.8 % (11.0-16.0)
[2022-08-03 12:16] LABS: Erythrocyte Sedimentation Rate 10 MM/HR (0-20)
[2022-08-03 12:17] LABS: Alanine Aminotransferase 18 U/L (0-31); Albumin Level 4.2 g/dL (3.5-5.0); Alkaline Phosphatase 73 U/L (39-117); Amylase 171 U/L (28-100); Anion Gap 15 (12-20); Aspartate Amino Transferase 20 U/L (5-31); Bilirubin Total 0.5 mg/dL (0.0-1.0); Blood Urea Nitrogen 23 mg/dL (9-16); C Reactive Protein 0.25 mg/dL (< or = 0.50); Calcium 9.6 mg/dL (8.4-10.2); Carbon Dioxide 28 mmol/L (22-29); Chloride 104 mmol/L (96-108); Estimated Glomerular Filt Rate > 60; Glucose Random 90 mg/dL (60-115); Lipase 48 U/L (8-78); Potassium 4.5 mmol/L (3.3-5.1); Sodium 142 mmol/L (135-145); Total Protein 6.5 g/dL (6.5-8.0)
[2022-08-03 12:20] LABS: TSH reflex Free T4 3.61 uIU/mL (0.32-4.0)
== END 2022-08-03 10:47 | disposition home or self-care (01) ==
LOC: HO.LAB 10:46
PROVIDERS: PCP Internal Medicine; Visit Provider Internal Medicine Gastroenterology
DX: K85.90 Acute pancreatitis without necrosis or infection, unspecified (principal); K75.81 Nonalcoholic steatohepatitis (NASH); R71.8 Other abnormality of red blood cells
CPT/HCPCS: 36415; 80053; 82150; 83690; 84443; 85025; 85652; 86140

== ENCOUNTER → 2022-08-24 07:49 | Outpatient (REF) | payer MEDICARE, SELFPAY ==
--- NOTE | ~2022-08-24 | NM_ITS ---
EXAMINATION: RADIONUCLIDE SOLID FOOD GASTRIC EMPTYING 4-HOUR STUDY CLINICAL INFORMATION: Early satiety. COMPARISON: No previous gastric emptying study is available for comparison. TECHNIQUE: A standard meal consisting of 4 oz of Egg Beaters brand equivalent tagged was 1.0 mCi Tc-99m Sulfur Colloid, 8 oz water and 2 slices of toast with jelly was administered orally to the patient. Images were obtained using a dual head gamma camera in the anterior and posterior projections over of the stomach immediately post ingestion and at hourly intervals up to 4 hours post ingestion. The anterior and posterior counts at each time interval were averaged using the geometric mean and expressed as percentage of the immediate post ingestion counts. FINDINGS: There is good visualization of activity in the stomach immediately post ingestion. As the study progresses, there is mildly diminished clearance of activity from the stomach and visualization of progressively increasing small bowel activity at the end of the study, there is mild abnormal retention of activity in the stomach at 4 hours. Retention in the stomach at each time interval was: 1 hour 76% (normal 37%-90%) 2 hours 48% (normal 30%-60%) 3 hours 31% 4 hours 20% (normal 0%-10%) NM/NM gastric emptying study IMPRESSION: Abnormal study. There is mild abnormal retention of solid food in the stomach at 4 hours.
== END ==
LOC: HO.NUCMED 07:49
PROVIDERS: PCP Internal Medicine; Visit Provider Internal Medicine Gastroenterology
DX: R68.81 Early satiety (principal)
CPT/HCPCS: 78264; A9541

== ENCOUNTER → 2022-11-01 11:41 | Outpatient (BNVA) | payer MEDICARE, SELFPAY | PROVIDERS: PCP Internal Medicine; Visit Provider Internal Medicine Gastroenterology | DX: N83.209 Unspecified ovarian cyst, unspecified side (principal); K85.90 Acute pancreatitis without necrosis or infection, unspecified; K31.84 Gastroparesis; R63.4 Abnormal weight loss; R71.8 Other abnormality of red blood cells | CPT/HCPCS: 99212 ==

== ENCOUNTER 2022-11-05 12:01 | Outpatient (REF) | payer MEDICARE, SELFPAY ==
--- NOTE | ~2022-11-05 | US_ITS ---
EXAMINATION: US PELVIS CLINICAL INFORMATION: Ovarian cyst; weight loss; postmenopausal patient. COMPARISON: None available. TECHNIQUE: Ultrasound of the pelvis is performed using both transabdominal and transvaginal transducers along with Doppler. Transvaginal imaging is performed due to inadequate visualization transabdominally. FINDINGS: Uterus: The uterus is anteverted and anteflexed. The uterus measures 4.9 x 1.3 x 4.4 cm. The double wall endometrial thickness is 0.2 mm. The uterus is smooth in contour and has normal myometrial echogenicity. No visible fibroid. Adnexa: Both ovaries are visualized. There is normal color flow to the adnexa. There is no ovarian torsion. There is no pelvic ascites or fluid collection. Right ovary measures 1.6 x 0.6 x 2.0 cm, volume 0.9 mL. Left ovary measures 1.6 x 0.6 x 0.9 cm, volume 0.4 mm. US/US pelvic and transvaginal IMPRESSION: The uterus is somewhat atrophic and otherwise unremarkable
== END 2022-11-05 12:02 | disposition home or self-care (01) ==
LOC: HO.HMGCX 12:01
PROVIDERS: PCP Internal Medicine; Visit Provider Internal Medicine Gastroenterology
DX: N83.209 Unspecified ovarian cyst, unspecified side (principal)
CPT/HCPCS: 76830; 76856

== ENCOUNTER 2023-01-31 12:38 | Outpatient (REF) | payer MEDICARE, SELFPAY ==
[2023-01-31 15:14] LABS: Ferritin 74 ng/mL (10-250); Vitamin D 25-OH Total 62.8 ng/mL (>30)
[2023-02-01 02:15] LABS: Folate 11.5 ng/mL (> or = 4.0); Vitamin B12 > 2000 pg/mL (200-900)
[2023-02-01 02:36] LABS: Lipase 39 U/L (8-78)
[2023-02-01 04:11] LABS: Amylase 159 U/L (28-100)
[2023-02-03 01:18] LABS: Zinc 58 mcg/dL (60-130)
[2023-02-04 15:59] LABS: Vitamin B6 10.3 ng/mL (2.1-21.7)
[2023-02-04 17:08] LABS: Vitamin B1 13 nmol/L (8-30)
[2023-02-04 17:34] LABS: Vitamin K1 771 pg/mL (130-1500)
[2023-02-05 15:53] LABS: Vitamin C 1.9 mg/dL (0.3-2.7)
[2023-02-05 18:58] LABS: Vitamin A 52 mcg/dL (38-98)
[2023-02-05 23:39] LABS: Nicotinamide <20 ng/mL; Vit B3 - Nicotinic Acid <20 ng/mL
[2023-02-09 14:43] LABS: Hu Antibody Screen, IFA Serum NEGATIVE (NEGATIVE); Yo Antibody, Serum Screen NEGATIVE (NEGATIVE)
[2023-02-09 19:48] LABS: Vitamin B5 (Pantothenic Acid) 58 ng/mL (<275)
== END 2023-01-31 12:39 | disposition home or self-care (01) ==
LOC: HO.LAB 12:38
PROVIDERS: PCP Internal Medicine; Visit Provider Internal Medicine Gastroenterology
DX: K85.90 Acute pancreatitis without necrosis or infection, unspecified (principal); K31.84 Gastroparesis; N83.209 Unspecified ovarian cyst, unspecified side; R63.4 Abnormal weight loss; R71.8 Other abnormality of red blood cells; E55.9 Vitamin D deficiency, unspecified
CPT/HCPCS: 36415; 82150; 82180; 82306; 82607; 82728; 82746; 83690; 84181; 84207; 84425; 84446; 84590; 84591; 84597; 84630; 86255; 86256

== ENCOUNTER 2023-02-04 09:09 | Outpatient (AMB) | payer MEDICARE, SELFPAY ==
--- NOTE | 2023-02-04 09:18 | MHC.OFFVIS ---
Intake Vital Signs 02/04/23 09:24 Height 4 ft 9 in Weight 92 lb BMI 19.9 BP 130/60 Blood Pressure Location Lt brachial Position Sitting Pulse 63 Intake Visit Reasons: 3 month fu Intake Note: Patient follow up for weight loss. Patient cc: abdominal bloating, weight loss with good appetite, occasional GERD, constipation and patient said it is really challenge for her to gain weight. Small Business Representative Required: No Accompanied by: Daughter Allergies alendronate sodium [From Fosamax] Allergy (Mild, Verified 02/04/23 09:15) unknown HPI 3 month fu HPI Details 78 yr old f here for f/u RECAP: she has had GERD since --started after she took fosamax she also has long standing constipation, little bits coming out she was taking metamucil, wafers --stopped due to sugar content she had colonoscopy 2014- hx of benign polyps she was on and off ppi, zantac, then went off meds for long time she had anxiety due to of and recurrent heartbrun she does have satiety--eating smaller meals she has tightness in throat, can be worse with bending weight loss 10# over few years 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 for left sided pains, in chest, stabbing, sharp, not getting it that often TESTS: US 02/2022- steatosis, gallstones CT 03/25/22: constipation, severe scoliosos and spine degeneration MRI: 05/2022--constipation, distended stomach, scoliosis, and compression # GES: 08/2022-- GES: 20% pelvic US- atrophic uterus, otherwise nml LABS: MCV- approx 100 B12- >2000 vit D--nml TSH: nml h pylori--neg celiac--neg lipase 41 amylase 185--last one 159 Endoscopy Findings: 03/2022 hiatal hernia esophagitis gastritis gastric polyps Colonoscopy Findings: internal hemorrhoids PATH: neg for colitis, malabsorption INTERIM: weight is still low, she is worried about cancer still has distention, but feels gastroparesis diet does help mild reflux but no nausea no abdominal pain no blood in stool didn't try motegrity due to cost, EXAM: GENERAL: The patient is thin and frail VITAL SIGNS:see workflow HEENT: Nonicteric sclerae, PERRLA, EOMI. Oropharynx clear. Moist mucous membranes. Conjunctivae appear well perfused. No thyroid mass. CHEST: Chest wall is nontender. HEART: Regular rate and rhythm without murmurs. LUNGS: Clear to auscultation bilaterally. ABDOMEN: Soft, positive bowel sounds, tender epigastrium, no organomegaly.no flank tenderness SKIN: No rash, no excessive bruising, petechiae, or purpura. NEUROLOGIC: Cranial nerves II-XII intact without motor/sensory deficit. MS: severe scoliosis psych-nml affect a/P: 1/ high amylase prob 2/2 reflux and salivary irritation, but could be due to gastroparesis 2/ high MCV, nml B12 and folate, saw Dr James, no concerns 3/ GERD and constipation, may be due to severe scolosis or neuropathy, dysmotility, hiatal hernia, altered anatomy ?, may have dysmotility, has gastroparesis on testing 4/ FTT, she is worried about cancer PLAN: 1/ she will check good rx to see if can get the motegrity 1 mg 2/ nutrient panel pending 3/ anti neuronal antibodies is pending 4/ discussed diet changes, can try curator of collections and add protein powder with fruits and veg, 5/ will repeat CT A/P given her ongoing concerns for neoplasia 6/ refer nutrition for help with diet [facility] Medical History GERD (gastroesophageal reflux disease) Hearing deficit IBS (irritable bowel syndrome) Osteoporosis Surgical History History of bilateral ligation of fallopian tubes History of esophagogastroduodenoscopy (EGD) Hx of appendectomy Hx of colonoscopy Social History Household Members: None Housing: House Alcohol intake: current Alcohol intake frequency: holidays/special occasions only Patient Tobacco Use Status: Never used Tobacco service: No Current occupational status: unemployed Physical Exam Vital Signs: Last Vital Signs Pulse 63 02/04/23 09:24 BP 130/60 02/04/23 09:24 BMI result Body Mass Index 19.9 Assessment & Plan Assessment & Plan (1) Elevated amylase: Code(s): R74.8 - Abnormal levels of other serum enzymes (2) Weight loss: Code(s): R63.4 - Abnormal weight loss (3) Gastroparesis: Code(s): K31.84 - Gastroparesis Orders: Orders CT abdomen pelvis w IV con Today R63.4 - Abnormal weight loss, R74.8 - Abnormal levels of other serum enzymes Comprehensive Met. Panel Today R63.4 - Abnormal weight loss, R74.8 - Abnormal levels of other serum enzymes Referrals Medical Nutrition Therapy Referral K31.84 - Gastroparesis, R63.4 - Abnormal weight loss Coding Level of Care Code Est Pt Level 4 (81001) Diagnoses Elevated amylase R74.8 Weight loss R63.4 Gastroparesis K31.84
[2023-02-04 09:24] VITALS: BP 130/60; PULSE 63; BMI 19.9
== END 2023-02-04 09:52 | disposition home or self-care (01) ==
PROVIDERS: PCP Internal Medicine; Visit Provider Internal Medicine Gastroenterology
DX: R74.8 Abnormal levels of other serum enzymes (principal); R63.4 Abnormal weight loss; K31.84 Gastroparesis
CPT/HCPCS: 99214

== ENCOUNTER → 2023-02-04 09:09 | Outpatient (BNVA) | payer MEDICARE, SELFPAY | PROVIDERS: PCP Internal Medicine; Visit Provider Internal Medicine Gastroenterology | DX: R63.4 Abnormal weight loss (principal); R74.8 Abnormal levels of other serum enzymes; K31.84 Gastroparesis; Z68.1 Body mass index [BMI] 19.9 or less, adult | CPT/HCPCS: 99212 ==

== ENCOUNTER 2023-02-22 12:44 | Outpatient (REF) | payer MEDICARE, SELFPAY ==
[2023-02-22 14:20] LABS: Alanine Aminotransferase 15 U/L (0-31); Alkaline Phosphatase 62 U/L (39-117); Anion Gap 11 (12-20); Aspartate Amino Transferase 20 U/L (5-31); Bilirubin Total 0.5 mg/dL (0.0-1.0); Blood Urea Nitrogen 27 mg/dL (9-16); Calcium 8.6 mg/dL (8.4-10.2); Carbon Dioxide 29 mmol/L (22-29); Chloride 105 mmol/L (96-108); Estimated Glomerular Filt Rate > 60; Glucose Random 151 mg/dL (60-115); Potassium 4.1 mmol/L (3.3-5.1); Sodium 141 mmol/L (135-145); Total Protein 6.6 g/dL (6.5-8.0)
[2023-02-28 16:33] LABS: Alpha-Tocopherol 13.2 mg/L (5.7-19.9); Beta-Gamma Tocopherol <1.0 mg/L (<=4.3)
== END 2023-02-22 12:45 | disposition home or self-care (01) ==
LOC: HO.LAB 12:44
PROVIDERS: PCP Internal Medicine; Visit Provider Internal Medicine Gastroenterology
DX: K31.84 Gastroparesis (principal); K85.90 Acute pancreatitis without necrosis or infection, unspecified; N83.209 Unspecified ovarian cyst, unspecified side; R63.4 Abnormal weight loss; R71.8 Other abnormality of red blood cells; R74.8 Abnormal levels of other serum enzymes
CPT/HCPCS: 36415; 80053; 84446

== ENCOUNTER 2023-04-11 14:56 | Outpatient (REF) | payer MEDICARE, SELFPAY ==
[2023-04-11 17:45] LABS: Amylase 157 U/L (28-100); Blood Urea Nitrogen 28 mg/dL (9-16); Estimated Glomerular Filt Rate 58; Lipase 31 U/L (8-78)
== END 2023-04-11 14:57 | disposition home or self-care (01) ==
LOC: HO.LAB 14:56
PROVIDERS: PCP Internal Medicine; Visit Provider Internal Medicine Gastroenterology
DX: R74.8 Abnormal levels of other serum enzymes (principal); K85.90 Acute pancreatitis without necrosis or infection, unspecified
CPT/HCPCS: 36415; 82150; 82565; 83690; 84520

== ENCOUNTER 2023-04-18 13:34 | Outpatient (REF) | payer MEDICARE, SELFPAY ==
--- NOTE | ~2023-04-18 | CT_ITS ---
EXAMINATION: CT ABDOMEN AND PELVIS WITH CONTRAST CLINICAL INFORMATION: Abnormal weight loss. COMPARISON: Ultrasound pelvis 11/05/2022, MR abdomen 06/14/2022, CT abdomen and pelvis 03/25/2022. TECHNIQUE: Multidetector volumetric images were obtained from the superior aspect of the liver through the pubic symphysis following administration 85 mL of Omnipaque 350 intravenous contrast. Sagittal and coronal reformatted images were obtained on the technologist's workstation. Oral contrast: No This CT examination was performed using dose optimization techniques as appropriate, variously including the following: *Automated exposure control *Adjustment of mA and/or kV according to patient size (this includes techniques or standardized protocols for targeted exams where dose is matched to indication/reason for exam; i.e. extremities or head) *Use of iterative reconstruction technique DLP: 220 mGy-cm FINDINGS: LUNG BASES: The visualized lung bases are unremarkable. Bibasilar scarring is present. LIVER, GALLBLADDER, AND BILIARY TREE: The liver is normal in size, shape, and attenuation. No focal hepatic lesion or biliary ductal dilatation is present. The gallbladder is unremarkable with no evidence of radiopaque gallstones, gallbladder wall thickening, or obvious pericholecystic inflammatory changes. PANCREAS: Unremarkable. SPLEEN: Unremarkable. ADRENAL GLANDS: Unremarkable. KIDNEYS AND URETERS: The kidneys are normal in size, shape, and attenuation. No hydronephrosis, hydroureter, or calculi seen. Bilateral peripelvic cysts are once again seen which need no additional imaging or follow up. No solid renal masses. No perinephric stranding. BLADDER: Unremarkable. GASTROINTESTINAL TRACT: Again seen is a large fluid-filled stomach. A large stool burden is once again seen throughout the colon which is otherwise unremarkable. The small bowel is nondilated and appears normal. The appendix is not seen but there is no evidence of appendicitis. ABDOMINAL WALL: No significant hernia is appreciated. LYMPH NODES: No retroperitoneal lymphadenopathy. VASCULAR: Unremarkable. The celiac, SMA and KIMBERLEY are patent without evidence of mesenteric ischemia. PELVIC VISCERA: Unremarkable. OSSEOUS STRUCTURES: Marked scoliosis convex to the left is present. Degenerative changes are present in the spine, most marked at L4-L5 where there is a grade [address]/CT abdomen pelvis w IV con IMPRESSION: 1. A cause for the patient's weight loss has not been found. 2. Incidental note made of a large fluid-filled stomach, large stool burden in the colon and marked scoliosis with degenerative changes in the spine as well as other findings described above. Fleischner guidelines were followed.
[2023-04-18] MEDS: iohexoL 350 MG/ML 100 ML INFUS..BTL IV (16:02)
[2023-04-18] MEDS: Barium Sulfate Oral (Vanilla) 450 ML ORAL.SUSP 900 ML PO (16:03)
== END 2023-04-18 13:35 | disposition home or self-care (01) ==
LOC: HO.CT 13:34
PROVIDERS: PCP Internal Medicine; Visit Provider Internal Medicine Gastroenterology
DX: R63.4 Abnormal weight loss (principal); R74.8 Abnormal levels of other serum enzymes
CPT/HCPCS: 74177; Q9967

== ENCOUNTER 2023-05-06 09:41 | Outpatient (AMB) | payer MEDICARE, SELFPAY ==
--- NOTE | 2023-05-06 09:45 | A.OFFVIS_ITS ---
Intake Vital Signs 05/06/23 09:52 Height 4 ft 9 in Weight 88 lb BMI 19.0 BP 151/72 H Blood Pressure Location Lt brachial Position Sitting Pulse 61 Intake Visit Reasons: 3 month follow up Intake Note: Patient follow up for elevated amylase. Patient cc: occasional GERD, back pain and constipation. Home Health Care Case Manager Required: No Accompanied by: Family/Other Allergies alendronate sodium [From Fosamax] Allergy (Mild, Verified 05/06/23 09:45) unknown HPI 3 month follow up HPI Details 78 yr old f here for f/u RECAP: she has had GERD since s --started after she took fosamax she also has long standing constipation, little bits coming out she was taking metamucil, wafers --stopped due to sugar content she had colonoscopy 2014- hx of benign polyps she was on and off ppi, zantac, then went off meds for long time she had anxiety due to of and recurrent heartbrun she does have satiety--eating smaller meals she has tightness in throat, can be worse with bending weight loss 10# over 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, in chest, stabbing, sharp, not getting it that often TESTS: US 02/2022- steatosis, gallstones CT 03/25/22: constipation, severe scoliosos and spine degeneration MRI: 05/2022--constipation, distended stomach, scoliosis, and compression # GES: 08/2022-- GES: 20% pelvic US- atrophic uterus, otherwise nml CT 04/11 -fluid filled stomach, marked scoliosis, large stool burden LABS: MCV- approx 100 B12- >2000 vit D--nml TSH: nml h pylori--neg celiac--neg lipase 41 amylase 185--last one 159 Endoscopy Findings: 03/2022 hiatal hernia esophagitis gastritis gastric polyps Colonoscopy Findings: internal hemorrhoids PATH: neg for colitis, malabsorption Rept labs: raised MCV, BUN, ant hu and Yo are neg INTERIM: she had qns, reviewed labs and CT scan with her she had some back jessee recently, scoliosis and degen in spine per CT--showed pics to the patient she has apptm for nutriton coming up not started motegrity yet no abdominal pain no blood in stool EXAM: GENERAL: The patient is thin and frail VITAL SIGNS:see workflow HEENT: Nonicteric sclerae, PERRLA, EOMI. Oropharynx clear. Moist mucous membranes. Conjunctivae appear well perfused. No thyroid mass. CHEST: Chest wall is nontender. HEART: Regular rate and rhythm without murmurs. LUNGS: Clear to auscultation bilaterally. ABDOMEN: Soft, positive bowel sounds, tender epigastrium, no organomegaly.no flank tenderness SKIN: No rash, no excessive bruising, petechiae, or purpura. NEUROLOGIC: Cranial nerves II-XII intact without motor/sensory deficit. MS: severe scoliosis psych-nml affect a/P: 1/ high amylase prob 2/2 reflux and sali vary irritation, but could be due to gastroparesis 2/ high MCV, nml B12 and folate, saw Dr James, no concerns 3/ GERD and constipation, may be due to severe scolosis or neuropathy, dysmotility, hiatal hernia, altered anatomy ?, may have dysmotility, has gastroparesis on testing 4/ FTT, she is worried about cancer --no sign of this on testing thus far PLAN: 1/ she will commence motegrity 2/ f/u with nutrition [facility] Medical History GERD (gastroesophageal reflux disease) Hearing deficit IBS (irritable bowel syndrome) Osteoporosis Surgical History Hx of appendectomy History of bilateral ligation of fallopian tubes Hx of colonoscopy History of esophagogastroduodenoscopy (EGD) Social History Household Members: None Housing: House Alcohol intake: current Alcohol intake frequency: holidays/special occasions only Patient Tobacco Use Status: Never used Tobacco service: No Current occupational status: unemployed Physical Exam Vital Signs: Last Vital Signs Pulse 61 05/06/23 09:52 BP 151/72 H 05/06/23 09:52 BMI result Body Mass Index 19.0 Assessment & Plan Assessment & Plan (1) Gastroparesis: Code(s): K31.84 - Gastroparesis (2) Weight loss: Code(s): R63.4 - Abnormal weight loss (3) Elevated amylase: Code(s): R74.8 - Abnormal levels of other serum enzymes Coding Level of Care Code Est Pt Level 4 (21377) Diagnoses Gastroparesis K31.84 Weight loss R63.4 Elevated amylase R74.8
[2023-05-06 09:52] VITALS: BP 151/72; PULSE 61; BMI 19.0
== END 2023-05-06 10:28 | disposition home or self-care (01) ==
PROVIDERS: PCP Internal Medicine; Visit Provider Internal Medicine Gastroenterology
DX: K31.84 Gastroparesis (principal); R63.4 Abnormal weight loss; R74.8 Abnormal levels of other serum enzymes
CPT/HCPCS: 99214

== ENCOUNTER → 2023-05-06 09:41 | Outpatient (BNVA) | payer MEDICARE, SELFPAY | PROVIDERS: PCP Internal Medicine; Visit Provider Internal Medicine Gastroenterology | DX: K31.84 Gastroparesis (principal); R63.4 Abnormal weight loss; R74.8 Abnormal levels of other serum enzymes | CPT/HCPCS: 99212 ==

== ENCOUNTER 2023-05-25 09:55 | Outpatient (AMB) | payer MEDICARE, SELFPAY ==
[2023-05-25 10:03] VITALS: BMI 18.8
--- NOTE | 2023-05-25 10:03 | MHC.AMNUTRGE ---
Intake VS Expanded 05/25/23 10:03 05/25/23 10:59 Height 4 ft 9 in 4 ft 9 in Weight 87 lb 1.321 oz 87 lb BMI 18.8 18.8 Intake Visit Reasons: Gastroparesis, Abnormal Weight Loss Allergies alendronate sodium [From Fosamax] Allergy (Mild, Verified 05/06/23 09:45) unknown HPI Nutrition Presentation Details Pt presents for MNT for abnormal weight loss with gastroparesis. Pt was referred by Dr. Ovalles, fibre technologist. Pt presents with her daughter during this appointment. Pt reports she is trying to follow multiple diet recommendations related to elevated blood sugar/cholesterol and diagnosis of gastroparesis. Pt reports working on reducing fats/sugars further contributing to weight loss. Typical meal intake B: rice cereal with fat free milk and canned fruit Snack: 1 egg omelette with mushrooms and onions, no bread/crackers, drinks water L: chicken soup with mushrooms, no starches, drinks water snack: plain Slovak yogurt with peaches added D: chicken with sweet potato, water s: crackers with hummus, water Participates in senior center chair exercises and other activities UTF-[id number]-Pi.Jeor Equation Height 4 ft 9 in Weight 87 lb Resting Metabolic Rate 749.43 Calculated Activity Level Mild Activity Calories Needed to Maintain Weight 1030.47 Diagnosis Nutrition problem #1 unintended weight loss As related to (etiology) #1 diagnosis (gastroparesis) As evidenced by (sign/symptom) #1 knowledge deficit of diet and low BMI Monitoring/Goals Nutrition problem monitoring level of knowledge/skill, total PRO intake, weight and oral fluids (nutrient dense oral fluids ) Nutrition goal/outcome wt gain 5lbs in 2 months Outcome progress verbalized understanding Learning/Education Readiness to learn good Stages of change action Educational materials provided Yes (nutrient dense foods to add to current meals, gradually increasing calories) Most Recent Diabetes Results: Creatinine 0.93 mg/dL (0.5-1.4) 04/11/23 Blood Urea Nitrogen 28 mg/dL (9-16) H 04/11/23 Sodium 141 mmol/L (135-145) 02/22/23 Potassium 4.1 mmol/L (3.3-5.1) 02/22/23 Chloride 105 mmol/L (96-108) 02/22/23 Carbon Dioxide 29 mmol/L (22-29) 02/22/23 Calcium 8.6 mg/dL (8.4-10.2) 02/22/23 AST 20 U/L (5-31) 02/22/23 ALT 15 U/L (0-31) 02/22/23 Total Protein 6.6 g/dL (6.5-8.0) 02/22/23 Albumin 4.0 g/dL (3.5-5.0) 02/22/23 PFSH Medical History GERD (gastroesophageal reflux disease) Hearing deficit IBS (irritable bowel syndrome) Osteoporosis Surgical History Hx of appendectomy History of bilateral ligation of fallopian tubes Hx of colonoscopy History of esophagogastroduodenoscopy (EGD) Social History Household Members: None Housing: House Alcohol intake: current Alcohol intake frequency: holidays/special occasions only Patient Tobacco Use Status: Never used Tobacco service: No Current occupational status: unemployed Assessment & Plan Assessment & Plan (1) Weight loss: Code(s): R63.4 - Abnormal weight loss Plan: wt: 39.5 kg Est kcal needs as per MSJ: 1000 + 500/1000 = 8441-4329 (40% carb, 30% protein/fat) Est fluid needs as per 30 ml/d: 1200 Est prot per day as per 1 g/kg bw: 39 Recommend fiber intake : 8-10 g per day Recommend sodium intake per day : less than 2000 mg Educated patient on: ( R = reviewed V = verbalizes understanding N/R = needs review N/A = not applicable Gradually increasing calories from protein and starches (2) Gastroparesis: Code(s): K31.84 - Gastroparesis Plan: Gradually increasing calories from protein and starches Patient Instructions: Switch to 1% milk instead of fat free milk Have milk or diluted juice with water instead of plain water with meals Include a starch in the midmorning snack and also with your lunch (bread, crackers,mashed potatoes as example) Have an ensure plus on a daily basis as a snack- do not skip meals/snacks keep a food record and bring to next follow up for review Coding Level of Care Code Nutr Indiv Intake (61531) Diagnoses Weight loss R63.4 Gastroparesis K31.84 Time Spent (min) 30
[2023-05-25 10:59] VITALS: BMI 18.8
== END 2023-05-25 10:47 | disposition home or self-care (01) ==
PROVIDERS: PCP Internal Medicine; Visit Provider Dietitian, Registered
DX: R63.4 Abnormal weight loss (principal); K31.84 Gastroparesis

== ENCOUNTER → 2023-05-25 09:55 | Outpatient (BNVA) | payer MEDICARE, SELFPAY | PROVIDERS: PCP Internal Medicine; Visit Provider Dietitian, Registered | DX: K31.84 Gastroparesis (principal); R63.4 Abnormal weight loss | CPT/HCPCS: 97802 ==

== ENCOUNTER 2023-07-04 09:46 | Outpatient (AMB) | payer MEDICARE, SELFPAY ==
[2023-07-04 10:03] VITALS: BMI 18.8
--- NOTE | 2023-07-04 10:03 | A.OFFVIS_ITS ---
Intake VS Expanded 07/04/23 10:03 Height 4 ft 9 in Weight 86 lb 13.794 oz BMI 18.8 Intake Visit Reasons: gastroparesis/CONFIRMED Allergies alendronate sodium [From Fosamax] Allergy (Mild, Verified 05/06/23 09:45) unknown HPI Nutrition Presentation Details Pt presents for MNT for gastroparesis with weight loss Pt reports doing ok , working on feeling comfortable trying and increasing on foods due to concerns of developing pain in stomach. Pt reports however feeling well. Pt reports having milk with meals in place of water or tea Reports havin 3 meals per day Breakfast cereal with banana and 1% milk snack : omelette with bread and hummus and cantaloupe 1/2 - 1 c yogurt or cottage cheese and peaches dinner: soup or pasta salad Most Recent Diabetes Results: Creatinine 0.93 mg/dL (0.5-1.4) 04/11/23 Blood Urea Nitrogen 28 mg/dL (9-16) H 04/11/23 Sodium 141 mmol/L (135-145) 02/22/23 Potassium 4.1 mmol/L (3.3-5.1) 02/22/23 Chloride 105 mmol/L (96-108) 02/22/23 Carbon Dioxide 29 mmol/L (22-29) 02/22/23 Calcium 8.6 mg/dL (8.4-10.2) 02/22/23 AST 20 U/L (5-31) 02/22/23 ALT 15 U/L (0-31) 02/22/23 Total Protein 6.6 g/dL (6.5-8.0) 02/22/23 Albumin 4.0 g/dL (3.5-5.0) 02/22/23 [facility] Medical History GERD (gastroesophageal reflux disease) Hearing deficit IBS (irritable bowel syndrome) Osteoporosis Surgical History Hx of appendectomy History of bilateral ligation of fallopian tubes Hx of colonoscopy History of esophagogastroduodenoscopy (EGD) Social History Household Members: None Housing: House Alcohol intake: current Alcohol intake frequency: holidays/special occasions only Patient Tobacco Use Status: Never used Tobacco service: No Current occupational status: unemployed Assessment & Plan Assessment & Plan (1) Weight loss: Code(s): R63.4 - Abnormal weight loss Plan: wt: 39.5 kg (05/2024), remains on 06/2023 Est kcal needs as per MSJ: 1000 + 500/1000 = 2278-5644 (40% carb, 30% protein/fat) Est fluid needs as per 30 ml/d: 1200 Est prot per day as per 1 g/kg bw: 39 Recommend fiber intake : 8-10 g per day Recommend sodium intake per day : less than 2000 mg Educated patient on: ( R = reviewed V = verbalizes understanding N/R = needs review N/A = not applicable * Gradually increasing calories from protein and starches * Choosing protein in liquid form and nutrient dense foods /snacks (2) Gastroparesis: Code(s): K31.84 - Gastroparesis Plan: Gradually increasing calories from protein and starches Patient Instructions: Continue choosing milk as preferred beverage with meals, and add soft peanut butter to make a milk shake 1-2 times a week with the meal Have mashed potatoes as in shepherds pie , choosing soft/puree nutrient dense foods Coding Level of Care Code Nutr Indiv Subseq (64049) Diagnoses Weight loss R63.4 Gastroparesis K31.84 Time Spent (min) 30
== END 2023-07-04 10:43 | disposition home or self-care (01) ==
PROVIDERS: PCP Internal Medicine; Visit Provider Dietitian, Registered
DX: R63.4 Abnormal weight loss (principal); K31.84 Gastroparesis

== ENCOUNTER → 2023-07-04 09:46 | Outpatient (BNVA) | payer MEDICARE, SELFPAY | PROVIDERS: PCP Internal Medicine; Visit Provider Dietitian, Registered | DX: K31.84 Gastroparesis (principal); R63.4 Abnormal weight loss | CPT/HCPCS: 97803 ==

== ENCOUNTER 2023-08-12 13:50 | Outpatient (REF) | payer MEDICARE, SELFPAY ==
[2023-08-12 14:06] LABS: MANUAL DIFF FLAG NO
[2023-08-12 14:18] LABS: Basophils Percent Auto 0.7 % (0-2); Eosinophils Absolute Auto 0.1 X10*3/uL (0.0-0.4); Eosinophils Percent Auto 1.2 % (0-4); Hematocrit 36.3 % (37.0-47.0); Imm Gran Abs Auto 0.01 X10*3/uL (0.00-0.03); Imm Gran Pct Auto 0.2 % (0.0-0.4); Lymphocytes Percent Auto 17.8 % (20-40); Mean Corpuscular HGB Conc 33.1 g/dl (31.0-35.0); Mean Corpuscular Hemoglobin 33.2 pg (27.0-33.0); Mean Corpuscular Volume 100.6 fL (80.0-98.0); Mean Platelet Volume 10.7 fL (9.4-12.3); Monocytes Absolute Auto 0.5 X10*3/uL (0.1-1.2); Monocytes Percent Auto 8.7 % (2-11); Neutrophils Absolute Auto 4.2 x10*3/uL (2.0-8.3); Neutrophils Percent Auto 71.4 % (45-73); Platelet Count 190 X10*3/uL (160-400); Red Blood Count 3.61 X10*6/uL (4.20-5.50); Red Cell Distribution Width 13.8 % (11.0-16.0); White Blood Count 5.9 X10*3/uL (4.8-10.8)
[2023-08-12 14:44] LABS: Alanine Aminotransferase 21 U/L (0-31); Albumin Level 3.8 g/dL (3.5-5.0); Alkaline Phosphatase 60 U/L (39-117); Anion Gap 11 (12-20); Aspartate Amino Transferase 20 U/L (5-31); Bilirubin Total 0.4 mg/dL (0.0-1.0); Blood Urea Nitrogen 34 mg/dL (9-16); Calcium 9.5 mg/dL (8.4-10.2); Carbon Dioxide 29 mmol/L (22-29); Chloride 107 mmol/L (96-108); Estimated Glomerular Filt Rate > 60; Glucose Random 117 mg/dL (60-115); Lipase 40 U/L (8-78); Potassium 4.2 mmol/L (3.3-5.1); Sodium 143 mmol/L (135-145); Total Protein 6.2 g/dL (6.5-8.0)
[2023-08-12 14:59] LABS: Amylase 155 U/L (28-100)
[2023-08-12 15:12] LABS: Vitamin D 25-OH Total 68.6 ng/mL (>30)
[2023-08-12 15:18] LABS: Folate 12.8 ng/mL (> or = 4.0); Vitamin B12 1005 pg/mL (200-900)
[2023-08-15 19:08] LABS: Lyme Abs Screen <0.90 index
== END 2023-08-12 13:51 | disposition home or self-care (01) ==
LOC: HO.LAB 13:50
PROVIDERS: PCP Internal Medicine; Visit Provider Internal Medicine Gastroenterology
DX: R74.8 Abnormal levels of other serum enzymes (principal); R71.8 Other abnormality of red blood cells; E46 Unspecified protein-calorie malnutrition; K75.81 Nonalcoholic steatohepatitis (NASH); R63.4 Abnormal weight loss
CPT/HCPCS: 36415; 80053; 82150; 82306; 82607; 82746; 83690; 85025; 86617; 86618

== ENCOUNTER 2023-08-19 08:50 | Outpatient (AMB) | payer MEDICARE, SELFPAY ==
--- NOTE | 2023-08-19 08:54 | MHC.OFFVIS ---
Intake Vital Signs 08/19/23 08:56 Height 4 ft 9 in Weight 93 lb 0.561 oz BMI 20.1 BP 139/69 Blood Pressure Location Lt brachial Position Sitting Pulse 72 Intake Visit Reasons: 3 month follow up Intake Note: Jocelin presents in the office as a 3 month follow up. CC: Constipation is improving. She has gained a few pounds since her last visit and she would like to know if PT would help with her muscle loss in her arms. 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: No Allergies alendronate sodium [From Fosamax] Allergy (Mild, Verified 08/19/23 08:56) unknown HPI 3 month follow up HPI Details 78 yr old f here for f/u RECAP: she has had GERD since s --started after she took fosamax she also has long standing constipation, little bits coming out she was taking metamucil, wafers --stopped due to sugar content she had colonoscopy 2014- hx of benign polyps she was on and off ppi, zantac, then went off meds for long time she had anxiety due to of and recurrent heartbrun she does have satiety--eating smaller meals she has tightness in throat, can be worse with bending weight loss 10# over few years has seen practicing md anesthesiologist for left sided pains, in chest, stabbing, sharp, not getting it that often she had qns, reviewed labs and CT scan with her she had some back pain recently, scoliosis and degen in spine per CT--showed pics to the patient TESTS: US 02/2022- steatosis, gallstones CT 03/25/22: constipation, severe scoliosos and spine degeneration MRI: 05/2022--constipation, distended stomach, scoliosis, and compression # GES: 08/2022-- GES: 20% pelvic US- atrophic uterus, otherwise nml CT 04/11 -fluid filled stomach, marked scoliosis, large stool burden LABS: stable raised MCV and mild urea elevation, nml HGB Endoscopy Findings: 03/2022 hiatal hernia esophagitis gastritis gastric polyps Colonoscopy Findings: internal hemorrhoids PATH: neg for colitis, malabsorption Rept labs: raised MCV, BUN, ant hu and Yo are neg INTERIM: she is happy she is gaining weight, following 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 Oropharynx clear. Moist mucous membranes. Conjunctivae appear well perfused. No thyroid mass. CHEST: Chest wall is nontender. HEART: Regular rate and rhythm without murmurs. LUNGS: Clear to auscultation bilaterally. ABDOMEN: Soft, positive bowel sounds, tender epigastrium, no organomegaly.no flank tenderness SKIN: No rash, no excessive bruising, petechiae, or purpura. NEUROLOGIC: Cranial nerves II-XII intact without motor/sensory deficit. MS: severe scoliosis psych-nml affect a/P: 1/ high amylase prob 2/2 reflux and salivary irritation, but could be due to gastroparesis 2/ high MCV, nml B12 and folate, saw Dr James, no concerns 3/ GERD and constipation, may be due to severe scolosis or neuropathy, dysmotility, hiatal hernia, altered anatomy , may have dysmotility, has gastroparesis on testing 4/ FTT, she is worried about cancer --no sign of this on testing thus far PLAN: 1/ she will cont miralax as it works well 2/ f/u with nutrition, she is happy she is gaining weight PFSH Medical History GERD (gastroesophageal reflux disease) Hearing deficit IBS (irritable bowel syndrome) Osteoporosis Surgical History Hx of appendectomy History of bilateral ligation of fallopian tubes Hx of colonoscopy History of esophagogastroduodenoscopy (EGD) Social History Household Members: None Housing: House Alcohol intake: current Alcohol intake frequency: holidays/special occasions only Patient Tobacco Use Status: Never used Tobacco service: No Current occupational status: unemployed Physical Exam Vital Signs: Last Vital Signs Pulse 72 08/19/23 08:56 BP 139/69 08/19/23 08:56 BMI result Body Mass Index 20.1 Assessment & Plan Assessment & Plan (1) Elevated amylase: Code(s): R74.8 - Abnormal levels of other serum enzymes Plan: see above (2) Gastroparesis: Code(s): K31.84 - Gastroparesis Plan: see above (3) Malnutrition: Code(s): E46 - Unspecified protein-calorie malnutrition Plan: see above Coding Level of Care Code Est Pt Level 3 (65371) Diagnoses Elevated amylase R74.8 Gastroparesis K31.84 Malnutrition E46
[2023-08-19 08:56] VITALS: BP 139/69; PULSE 72; BMI 20.1
== END 2023-08-19 09:24 | disposition home or self-care (01) ==
PROVIDERS: PCP Internal Medicine; Visit Provider Internal Medicine Gastroenterology
DX: R74.8 Abnormal levels of other serum enzymes (principal); K31.84 Gastroparesis; E46 Unspecified protein-calorie malnutrition
CPT/HCPCS: 99213

== ENCOUNTER → 2023-08-19 08:50 | Outpatient (BNVA) | payer MEDICARE, SELFPAY | PROVIDERS: PCP Internal Medicine; Visit Provider Internal Medicine Gastroenterology | DX: R74.8 Abnormal levels of other serum enzymes (principal); K31.84 Gastroparesis; E46 Unspecified protein-calorie malnutrition | CPT/HCPCS: 99212 ==

== ENCOUNTER 2023-08-22 08:26 | Outpatient (AMB) | payer MEDICARE, SELFPAY ==
[2023-08-22 08:32] VITALS: BMI 19.8
--- NOTE | 2023-08-22 08:32 | A.OFFVIS_ITS ---
Intake VS Expanded 08/22/23 08:32 Height 4 ft 9 in Weight 91 lb 7.869 oz BMI 19.8 Intake Visit Reasons: monitor/LVM Allergies alendronate sodium [From Fosamax] Allergy (Mild, Verified 08/19/23 08:56) unknown HPI Nutrition Presentation Details Pt presents for MNT for for Gastroparesis with weight loss Pt reports doing well, feeling more comfortable, working on increasing some protein foods in the diet having milk with 2 of the meals B: cereal rice krispies with brown krisps with milk lunch : omelette with vegetables and piece of bread and cup of milk dinner: soup with chicken , noodles vegetables snack: ensure complete 1-2 times/day Pt reports participating in healthy bones and balance at the [facility] 0- 1x/wk Pt reports overall feeling more comfortable with food choices, no GI complaints at this time Most Recent Diabetes Results: Creatinine 0.73 mg/dL (0.5-1.4) 08/12/23 Blood Urea Nitrogen 34 mg/dL (9-16) H 08/12/23 Sodium 143 mmol/L (135-145) 08/12/23 Potassium 4.2 mmol/L (3.3-5.1) 08/12/23 Chloride 107 mmol/L (96-108) 08/12/23 Carbon Dioxide 29 mmol/L (22-29) 08/12/23 Calcium 9.5 mg/dL (8.4-10.2) 08/12/23 AST 20 U/L (5-31) 08/12/23 ALT 21 U/L (0-31) 08/12/23 Total Protein 6.2 g/dL (6.5-8.0) L 08/12/23 Albumin 3.8 g/dL (3.5-5.0) 08/12/23 [facility] Medical History GERD (gastroesophageal reflux disease) Hearing deficit IBS (irritable bowel syndrome) Osteoporosis Surgical History Hx of appendectomy History of bilateral ligation of fallopian tubes Hx of colonoscopy History of esophagogastroduodenoscopy (EGD) Social History Household Members: None Housing: House Alcohol intake: current Alcohol intake frequency: holidays/special occasions only Patient Tobacco Use Status: Never used Tobacco service: No Current occupational status: unemployed Assessment & Plan Assessment & Plan (1) Weight loss: Code(s): R63.4 - Abnormal weight loss Plan: wt: 39.5 kg (05/2024), remains on 06/2023, 41 kg (08/2023) Est kcal needs as per MSJ: 1000 + 500/1000 = 0050-8118 (40% carb, 30% protein/fat) Est fluid needs as per 30 ml/d: 1200 Est prot per day as per 1 g/kg bw: 39 Recommend fiber intake : 8-10 g per day Recommend sodium intake per day : less than 2000 mg Educated patient on: ( R = reviewed V = verbalizes understanding N/R = needs review N/A = not applicable * Gradually increasing calories from protein and starches * Choosing protein in liquid form and nutrient dense foods /snacks (2) Gastroparesis: Code(s): K31.84 - Gastroparesis Plan: Continue as established, having 4-6 small meals per day, include milk with your meals in place of water or tea Have a meal supplement once or twice a day or a pudding or 1/2 sand keep walking as able /safely unless otherwise specified by doctor Patient Instructions: Continue as established, having 4-6 small meals per day, include milk with your meals in place of water or tea Have a meal supplement once or twice a day or a pudding or 1/2 sand keep walking as able /safely unless otherwise specified by doctor Coding Level of Care Code Nutr Indiv Subseq (63948) Diagnoses Weight loss R63.4 Gastroparesis K31.84 Time Spent (min) 30
== END 2023-08-22 09:15 | disposition home or self-care (01) ==
PROVIDERS: PCP Internal Medicine; Visit Provider Dietitian, Registered
DX: R63.4 Abnormal weight loss (principal); K31.84 Gastroparesis

== ENCOUNTER → 2023-08-22 08:26 | Outpatient (BNVA) | payer MEDICARE, SELFPAY | PROVIDERS: PCP Internal Medicine; Visit Provider Dietitian, Registered | DX: K31.84 Gastroparesis (principal); R63.4 Abnormal weight loss | CPT/HCPCS: 97803 ==

== ENCOUNTER 2023-10-28 08:07 | Outpatient (REF) | payer MEDICARE, SELFPAY ==
[2023-10-28 08:20] LABS: MANUAL DIFF FLAG NO
[2023-10-28 08:57] LABS: Basophils Percent Auto 0.6 % (0-2); Eosinophils Absolute Auto 0.1 X10*3/uL (0.0-0.4); Hematocrit 41.2 % (37.0-47.0); Hemoglobin 13.7 g/dl (12.0-16.0); Imm Gran Abs Auto 0.01 X10*3/uL (0.00-0.03); Imm Gran Pct Auto 0.3 % (0.0-0.4); Lymphocytes Absolute Auto 1.3 X10*3/uL (1.2-4.9); Lymphocytes Percent Auto 38.1 % (20-40); Mean Corpuscular HGB Conc 33.3 g/dl (31.0-35.0); Mean Corpuscular Hemoglobin 33.9 pg (27.0-33.0); Mean Platelet Volume 10.9 fL (9.4-12.3); Monocytes Absolute Auto 0.3 X10*3/uL (0.1-1.2); Monocytes Percent Auto 9.7 % (2-11); Neutrophils Absolute Auto 1.7 x10*3/uL (2.0-8.3); Neutrophils Percent Auto 49.3 % (45-73); Platelet Count 188 X10*3/uL (160-400); Red Blood Count 4.04 X10*6/uL (4.20-5.50); Red Cell Distribution Width 13.5 % (11.0-16.0); White Blood Count 3.5 X10*3/uL (4.8-10.8)
[2023-10-28 09:07] LABS: Estimated Average Glucose 117 mg/dL; Hemoglobin A1c % 5.7 % (<6.0)
[2023-10-28 09:40] LABS: Alanine Aminotransferase 17 U/L (0-31); Albumin Level 4.1 g/dL (3.5-5.0); Alkaline Phosphatase 58 U/L (39-117); Anion Gap 12 (12-20); Aspartate Amino Transferase 20 U/L (5-31); Bilirubin Total 0.7 mg/dL (0.0-1.0); Blood Urea Nitrogen 22 mg/dL (9-16); Calcium 9.9 mg/dL (8.4-10.2); Carbon Dioxide 29 mmol/L (22-29); Chloride 106 mmol/L (96-108); Cholesterol 196 mg/dL (<200); Estimated Glomerular Filt Rate > 60; Glucose Random 85 mg/dL (60-115); HDL Cholesterol 68 mg/dL (>40); LDL Cholesterol Calculated 117 mg/dL (<100); Sodium 143 mmol/L (135-145); Total Protein 6.8 g/dL (6.5-8.0); Triglycerides 56 mg/dL (<150)
[2023-10-28 09:59] LABS: Free T4 (Free Thyroxine) 0.98 ng/dL (0.71-1.85); Thyroid Stimulating Hormone 4.66 uIU/mL (0.32-4.0)
[2023-10-28 13:06] LABS: Reflex LDLD? No
== END 2023-10-28 08:08 | disposition home or self-care (01) ==
LOC: HO.LAB 08:07
PROVIDERS: PCP Internal Medicine; Visit Provider Internal Medicine
DX: E78.00 Pure hypercholesterolemia, unspecified (principal); R73.03 Prediabetes; R79.89 Other specified abnormal findings of blood chemistry
CPT/HCPCS: 36415; 80053; 80061; 83036; 84439; 84443; 85025

== ENCOUNTER 2023-11-22 08:57 | Outpatient (AMB) | payer MEDICARE, SELFPAY ==
[2023-11-22 09:03] VITALS: BMI 19.6
--- NOTE | 2023-11-22 09:03 | A.OFFVIS_ITS ---
VS Expanded 11/22/23 09:03 Height 4 ft 9 in Weight 90 lb 6.232 oz BMI 19.6 Intake Visit Reasons: Gastroparesis, monitor wt/CONFIRMED Allergies alendronate sodium [From Fosamax] Allergy (Mild, Verified 08/19/23 08:56) unknown Nutrition Presentation Details: Pt presents for MNT f/u for gastroparesis. Pt reports feeling comfortable and having gastroparesis symptoms controlled. Pt is concerned about elevated LDL and reports cutting down on foods with saturated fats including nutritional supplements and has noticed weight loss (3 lbs since last visit in 08/2023). Pt reports she is participating in diff activities at the [facility] BS Monitoring Most Recent Diabetes Results: Cholesterol 196 mg/dL (<200) 10/28/23 HDL Cholesterol 68 mg/dL (>40) 10/28/23 Triglycerides 56 mg/dL (<150) 10/28/23 Creatinine 0.84 mg/dL (0.5-1.4) 10/28/23 Blood Urea Nitrogen 22 mg/dL (9-16) H 10/28/23 Sodium 143 mmol/L (135-145) 10/28/23 Potassium 4.0 mmol/L (3.3-5.1) 10/28/23 Chloride 106 mmol/L (96-108) 10/28/23 Carbon Dioxide 29 mmol/L (22-29) 10/28/23 Calcium 9.9 mg/dL (8.4-10.2) 10/28/23 AST 20 U/L (5-31) 10/28/23 ALT 17 U/L (0-31) 10/28/23 Total Protein 6.8 g/dL (6.5-8.0) 10/28/23 Albumin 4.1 g/dL (3.5-5.0) 10/28/23 [facility] Medical History GERD (gastroesophageal reflux disease) Hearing deficit IBS (irritable bowel syndrome) Osteoporosis Surgical History Hx of appendectomy History of bilateral ligation of fallopian tubes Hx of colonoscopy History of esophagogastroduodenoscopy (EGD) Social History Household Members: None Housing: House Alcohol intake: current Alcohol intake frequency: holidays/special occasions only Patient Tobacco Use Status: Never used Tobacco service: No Current occupational status: unemployed Assessment & Plan Assessment & Plan (1) Weight loss: Code(s): R63.4 - Abnormal weight loss Category: Medical Plan: Incorporating MUFA/PUFA in diet wt: 39.5 kg (05/2024), remains on 06/2023, 41 kg (08/2023) Est kcal needs as per MSJ: 1000 + 500/1000 = 3138-7105 (40% carb, 30% protein/fat) Est fluid needs as per 30 ml/d: 1200 Est prot per day as per 1 g/kg bw: 39 Recommend fiber intake : 8-10 g per day Recommend sodium intake per day : less than 2000 mg Educated patient on: ( R = reviewed V = verbalizes understanding N/R = needs review N/A = not applicable * Gradually increasing calories from protein and starches * Choosing protein in liquid form and nutrient dense foods /snacks * MUFA/PUFA vs Sat'd fats : R (2) Gastroparesis: Code(s): K31.84 - Gastroparesis Category: Medical Plan: Continue as established, having 4-6 small meals per day, include 1 %milk with your meals in place of water or tea Have a meal supplement once or twice a day or a pudding or 1/2 sand as snack , add yogurt , olive oil, or olives keep walking as able /safely unless otherwise specified by doctor Work on prevention of weight loss Continue trying a variety of foods Coding Level of Care Code Nutr Indiv Subseq (40123) Diagnoses Weight loss R63.4 Gastroparesis K31.84 Time Spent (min) 30
== END 2023-11-22 09:42 | disposition home or self-care (01) ==
PROVIDERS: PCP Internal Medicine; Visit Provider Dietitian, Registered
DX: R63.4 Abnormal weight loss (principal); K31.84 Gastroparesis

== ENCOUNTER → 2023-11-22 08:57 | Outpatient (BNVA) | payer MEDICARE, SELFPAY | PROVIDERS: PCP Internal Medicine; Visit Provider Dietitian, Registered | DX: K31.84 Gastroparesis (principal); R63.4 Abnormal weight loss; Z68.1 Body mass index [BMI] 19.9 or less, adult; Z71.3 Dietary counseling and surveillance | CPT/HCPCS: 97803 ==

== ENCOUNTER 2023-12-05 13:03 | Outpatient (REF) | payer MEDICARE, SELFPAY ==
[2023-12-05 13:43] VITALS: BP 166/81; PULSE 69; RESP 16; TEMP 36.5; O2SAT 97; BMI 19.5
== END 2023-12-05 13:04 | disposition home or self-care (01) ==
LOC: HO.MS 13:03
PROVIDERS: PCP Internal Medicine; Visit Provider Ophthalmology
PROC: (CPT 66821; principal; 2023-12-05 14:30)
DX: H26.491 Other secondary cataract, right eye (principal)
CPT/HCPCS: 66821

== ENCOUNTER 2023-12-12 13:35 | Outpatient (REF) | payer MEDICARE, SELFPAY ==
[2023-12-12 16:56] VITALS: BP 134/84; PULSE 68; RESP 16; TEMP 36.2; O2SAT 96; BMI 25.0
== END 2023-12-12 13:36 | disposition home or self-care (01) ==
LOC: HO.MS 13:35
PROVIDERS: PCP Internal Medicine; Visit Provider Ophthalmology
PROC: (CPT 66821; principal; 2023-12-12 14:10)
DX: H26.492 Other secondary cataract, left eye (principal)
CPT/HCPCS: 66821

== ENCOUNTER 2023-12-14 11:06 | Outpatient (REF) | payer MEDICARE, SELFPAY ==
[2023-12-14 11:43] LABS: MANUAL DIFF FLAG NO
[2023-12-14 12:20] LABS: Basophils Percent Auto 0.6 % (0-2); Eosinophils Absolute Auto 0.1 X10*3/uL (0.0-0.4); Eosinophils Percent Auto 1.2 % (0-4); Hematocrit 37.1 % (37.0-47.0); Hemoglobin 12.3 g/dl (12.0-16.0); Imm Gran Abs Auto 0.01 X10*3/uL (0.00-0.03); Imm Gran Pct Auto 0.2 % (0.0-0.4); Lymphocytes Absolute Auto 0.9 X10*3/uL (1.2-4.9); Lymphocytes Percent Auto 18.7 % (20-40); Mean Corpuscular HGB Conc 33.2 g/dl (31.0-35.0); Mean Corpuscular Hemoglobin 33.4 pg (27.0-33.0); Mean Corpuscular Volume 100.8 fL (80.0-98.0); Mean Platelet Volume 11.1 fL (9.4-12.3); Monocytes Absolute Auto 0.4 X10*3/uL (0.1-1.2); Monocytes Percent Auto 7.9 % (2-11); Neutrophils Absolute Auto 3.5 x10*3/uL (2.0-8.3); Neutrophils Percent Auto 71.4 % (45-73); Platelet Count 185 X10*3/uL (160-400); Red Blood Count 3.68 X10*6/uL (4.20-5.50); Red Cell Distribution Width 14.3 % (11.0-16.0); White Blood Count 4.9 X10*3/uL (4.8-10.8)
[2023-12-14 12:41] LABS: Alanine Aminotransferase 22 U/L (0-31); Albumin Level 3.9 g/dL (3.5-5.0); Alkaline Phosphatase 58 U/L (39-117); Amylase 171 U/L (28-100); Anion Gap 8 (12-20); Aspartate Amino Transferase 23 U/L (5-31); Bilirubin Total 0.4 mg/dL (0.0-1.0); Blood Urea Nitrogen 32 mg/dL (9-16); Calcium 9.5 mg/dL (8.4-10.2); Carbon Dioxide 32 mmol/L (22-29); Chloride 107 mmol/L (96-108); Estimated Glomerular Filt Rate > 60; Glucose Random 91 mg/dL (60-115); Lipase 34 U/L (8-78); Potassium 3.9 mmol/L (3.3-5.1); Sodium 143 mmol/L (135-145); Total Protein 6.4 g/dL (6.5-8.0)
[2023-12-19 02:34] LABS: Zinc 64 mcg/dL (60-130)
== END 2023-12-14 11:07 | disposition home or self-care (01) ==
LOC: HO.LAB 11:06
PROVIDERS: PCP Internal Medicine; Visit Provider Internal Medicine Gastroenterology
DX: R74.8 Abnormal levels of other serum enzymes (principal); E46 Unspecified protein-calorie malnutrition; K75.81 Nonalcoholic steatohepatitis (NASH)
CPT/HCPCS: 36415; 80053; 82150; 83690; 84630; 85025

== ENCOUNTER 2023-12-23 08:51 | Outpatient (AMB) | payer MEDICARE, SELFPAY ==
--- NOTE | 2023-12-23 08:53 | MHC.OFFVIS ---
Vital Signs 12/23/23 08:54 Height 4 ft 9 in Weight 88 lb 10.013 oz BMI 19.2 BP 129/65 Blood Pressure Location Lt brachial Position Sitting Pulse 65 Intake Visit Reasons: 4 month follow up Intake Note: Jocelin presents in the office as a 4 month follow up. CC: Patient states that she is better from constipation. Taking Miralax for constipation. She states that recently she has been having more acid reflux and heartburn. 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: No Allergies alendronate sodium [From Fosamax] Allergy (Mild, Verified 12/23/23 08:57) unknown HPI HPI 4 month follow up: Details: 78 yr old f here for f/u RECAP: she has had GERD since 's --started after she took fosamax she also has long standing constipation, little bits coming out she was taking metamucil, wafers --stopped due to sugar content she had colonoscopy 2014- hx of benign polyps she was on and off ppi, zantac, then went off meds for long time she had anxiety due to of and recurrent heartbrun she does have satiety--eating smaller meals she has tightness in throat, can be worse with bending weight loss 10# over few years 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 sales service executive 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 left sided pains, in chest, stabbing, sharp, not getting it that often she had qns, reviewed labs and CT scan with her she had some back pain recently, scoliosis and degen in spine per CT--showed pics to the patient TESTS: US 02/2022- steatosis, gallstones CT 03/25/22: constipation, severe scoliosos and spine degeneration MRI: 05/2022--constipation, distended stomach, scoliosis, and compression # GES: 08/2022-- GES: 20% pelvic US- atrophic uterus, otherwise nml CT 04/11 -fluid filled stomach, marked scoliosis, large stool burden LABS: stable raised MCV and mild urea elevation, nml HGB Endoscopy Findings: 03/2022 hiatal hernia esophagitis gastritis gastric polyps Colonoscopy Findings: internal hemorrhoids PATH: neg for colitis, malabsorption Rept labs: raised MCV, BUN, ant hu and Yo are neg INTERIM: she is having some reflux when she eats eggs weight is stable no nausea no abdominal pain gen chit chat about thyroid issues and diet taking miralax as needed EXAM: GENERAL: The patient is thin and frail VITAL SIGNS:see workflow HEENT: Nonicteric sclerae, PERRLA, EOMI. Oropharynx clear. Moist mucous membranes. Conjunctivae appear well perfused. No thyroid mass. CHEST: Chest wall is nontender. HEART: Regular rate and rhythm without murmurs. LUNGS: Clear to auscultation bilaterally. ABDOMEN: Soft, positive bowel sounds, tender epigastrium, no organomegaly.no flank tenderness SKIN: No rash, no excessive bruising, petechiae, or purpura. NEUROLOGIC: Cranial nerves II-XII intact without motor/sensory deficit. MS: severe scoliosis psych-nml affect a/P: 1/ high amylase prob 2/2 reflux and salivary irritation, but could be due to gastroparesis 2/ high MCV, nml B12 and folate, saw Dr James, no concerns 3/ GERD and constipation, may be due to severe scolosis or neuropathy, dysmotility, hiatal hernia, altered anatomy , may have dysmotility, has gastroparesis on testing 4/ FTT, she is worried about cancer --no sign of this on testing thus far PLAN: 1/ can take tums or maalox for prn heartburn if more freq then PPI or H2 [place] 2/ f/u with nutrition and diet as doing 3/ can take motegrity if needed might help w/ gastroparesis PFSH Medical History GERD (gastroesophageal reflux disease) Hearing deficit IBS (irritable bowel syndrome) Osteoporosis Surgical History Hx of appendectomy History of bilateral ligation of fallopian tubes Hx of colonoscopy History of esophagogastroduodenoscopy (EGD) Social History Household Members: None Housing: House Alcohol intake: current Alcohol intake frequency: holidays/special occasions only Patient Tobacco Use Status: Never used Tobacco service: No Current occupational status: unemployed Physical Exam Vital Signs: BMI result Body Mass Index 19.2 Assessment & Plan Assessment & Plan (1) Gastroparesis: Code(s): K31.84 - Gastroparesis Category: Medical Plan: se above Coding Level of Care Code Est Pt Level 3 (08658) Diagnoses Gastroparesis K31.84
[2023-12-23 08:54] VITALS: BP 129/65; PULSE 65; BMI 19.2
== END 2023-12-23 09:26 | disposition home or self-care (01) ==
PROVIDERS: PCP Internal Medicine; Visit Provider Internal Medicine Gastroenterology
DX: K31.84 Gastroparesis (principal)
CPT/HCPCS: 99213

== ENCOUNTER → 2023-12-23 08:51 | Outpatient (BNVA) | payer MEDICARE, SELFPAY | PROVIDERS: PCP Internal Medicine; Visit Provider Internal Medicine Gastroenterology | DX: K31.84 Gastroparesis (principal) | CPT/HCPCS: 99212 ==

== ENCOUNTER 2024-02-21 09:26 | Outpatient (AMB) | payer MEDICARE, SELFPAY ==
[2024-02-21 09:40] VITALS: BMI 20.2
--- NOTE | 2024-02-21 09:40 | A.OFFVIS_ITS ---
VS Expanded 02/21/24 09:40 Height 4 ft 9 in Weight 93 lb 4.089 oz BMI 20.2 Intake Visit Reasons: Gastroparesis, monitor wt/LVM Allergies alendronate sodium [From Fosamax] Allergy (Mild, Verified 12/23/23 08:57) unknown Nutrition Presentation Details: Pt presents for MNT f/u for gastroparesis. Pt reports feeling much better, choosing a variety of low fat foods and working on including soft foods in her diet. Pt reports feeling good, motivated. Participates in exercise programs at the [facility] at least twice a week BS Monitoring Most Recent Diabetes Results: Cholesterol 196 mg/dL (<200) 10/28/23 HDL Cholesterol 68 mg/dL (>40) 10/28/23 Triglycerides 56 mg/dL (<150) 10/28/23 Creatinine 0.78 mg/dL (0.5-1.4) 12/14/23 Blood Urea Nitrogen 32 mg/dL (9-16) H 12/14/23 Sodium 143 mmol/L (135-145) 12/14/23 Potassium 3.9 mmol/L (3.3-5.1) 12/14/23 Chloride 107 mmol/L (96-108) 12/14/23 Carbon Dioxide 32 mmol/L (22-29) H 12/14/23 Calcium 9.5 mg/dL (8.4-10.2) 12/14/23 AST 23 U/L (5-31) 12/14/23 ALT 22 U/L (0-31) 12/14/23 Total Protein 6.4 g/dL (6.5-8.0) L 12/14/23 Albumin 3.9 g/dL (3.5-5.0) 12/14/23 [facility] Medical History Hearing deficit IBS (irritable bowel syndrome) GERD (gastroesophageal reflux disease) Osteoporosis Surgical History Hx of appendectomy History of bilateral ligation of fallopian tubes Hx of colonoscopy History of esophagogastroduodenoscopy (EGD) Social History Household Members: None Housing: House Alcohol intake: current Alcohol intake frequency: holidays/special occasions only Patient Tobacco Use Status: Never used Tobacco service: No Current occupational status: unemployed Assessment & Plan Assessment & Plan (1) Weight loss: Code(s): R63.4 - Abnormal weight loss Category: Medical Plan: Incorporating MUFA/PUFA in diet wt: 39.5 kg (05/2024), remains on 06/2023, 41 kg (08/2023), 42 kg(02/2024) Est kcal needs as per MSJ: 1000 + 500/1000 = 2721-8684 (40% carb, 30% protein/fat) Est fluid needs as per 30 ml/d: 1200 Est prot per day as per 1 g/kg bw: 39 Recommend fiber intake : 8-10 g per day Recommend sodium intake per day : less than 2000 mg Educated patient on: ( R = reviewed V = verbalizes understanding N/R = needs review N/A = not applicable * Gradually increasing calories from protein and starches * Choosing protein in liquid form and nutrient dense foods /snacks * MUFA/PUFA vs Sat'd fats : R (2) Gastroparesis: Code(s): K31.84 - Gastroparesis Category: Medical Plan: Continue as established, having 4-6 small meals per day, include 1 %milk with your meals in place of water or tea Have a meal supplement once or twice a day or a pudding or 1/2 sand as snack , add yogurt , olive oil, or olives keep walking as able /safely unless otherwise specified by doctor Work on prevention of weight loss Continue trying a variety of foods Patient Instructions: Continue as established , choosing a variety of low fat foods keep hydrated by having milk, soups incorporate calcium rich foods in your diet (non fat yogurt, fortified juices/foods, soy keep active as able Coding Level of Care Code Nutr Indiv Subseq (13500) Diagnoses Weight loss R63.4 Gastroparesis K31.84 Time Spent (min) 30
== END 2024-02-21 10:15 | disposition home or self-care (01) ==
PROVIDERS: PCP Internal Medicine; Visit Provider Dietitian, Registered
DX: R63.4 Abnormal weight loss (principal); K31.84 Gastroparesis

== ENCOUNTER → 2024-02-21 09:26 | Outpatient (BNVA) | payer MEDICARE, SELFPAY | PROVIDERS: PCP Internal Medicine; Visit Provider Dietitian, Registered | DX: K31.84 Gastroparesis (principal); R63.4 Abnormal weight loss; Z71.3 Dietary counseling and surveillance | CPT/HCPCS: 97803 ==

== ENCOUNTER 2024-03-28 15:18 | Outpatient (AMB) | payer MEDICARE, SELFPAY ==
--- NOTE | 2024-03-28 15:19 | A.OFFVIS_ITS ---
Vital Signs 03/28/24 15:21 Height 4 ft 9 in Weight 94 lb 12.78 oz BMI 20.5 BP 118/78 Blood Pressure Location Rt brachial Position Sitting Pulse 75 Pulse Source Pulse Oximeter Intake Visit Reasons: High TSH/CONFIRMED Intake Note: NEW Patient presents today to establish treatment for elevated TSH Staff Nurse Anesthetist Required: No Accompanied by: Daughter Allergies alendronate sodium [From Fosamax] Allergy (Mild, Verified 03/28/24 15:23) unknown HPI Comments Details: The patient is an 79 year old female presenting for abnormal tfts, osteoporosis presenting for abnormal thyroid tests Abnormal TFTs: Last TSH 4.66 free T4 0.98. Sees GI for stage 1 gastric motility disorder. Is doing well on Miralax. Energy is good though she offers she may have less over the past few months. No skin, hair changes. History of xray treatment for acne in her teens. Sister with h/o thyroid cancer Osteoporosis: Says last DEXA was in [place] ~01/2023. Says was in osteoporotic range. Was treated with fosamax >10 years ago. Caused severe gastritis, dyspepsia. Denies fractures. Hesitant to consider further treatment ROS CONSTITUTIONAL: Denies weight loss, fever and chills. HEENT: Denies changes in vision and hearing. RESPIRATORY: Denies SOB and cough. CV: Denies palpitations and CP GI: Denies abdominal pain, nausea, vomiting and diarrhea. : Denies dysuria and urinary frequency. MSK: Denies new myalgia and joint pain. SKIN: Denies rash and pruritus. NEUROLOGICAL: Denies headache PSYCHIATRIC: Denies recent changes in mood. PHYSICAL EXAM: GENERAL: Alert and oriented x 3. NAD EYES: EOMI. Anicteric. HENT: Moist mucous membranes. No scleral icterus. No cervical lymphadenopathy. Thyroid gland wnl LUNGS: Clear to auscultation bilaterally. CARDIOVASCULAR: Regular rate and rhythm. No murmur. No JVD. ABDOMEN: Soft, non-tender +bs EXTREMITIES: No edema. Non-tender. SKIN: No rashes or lesions. Warm. No hair thinning NEUROLOGIC: No focal neurological deficits. CN II-XII grossly intact PSYCHIATRIC: Cooperative. Appropriate mood and affect [facility] Medical History Hearing deficit IBS (irritable bowel syndrome) GERD (gastroesophageal reflux disease) Osteoporosis Surgical History Hx of appendectomy History of bilateral ligation of fallopian tubes Hx of colonoscopy History of esophagogastroduodenoscopy (EGD) Social History Household Members: None Housing: House Alcohol intake: current Alcohol intake frequency: holidays/special occasions only Patient Tobacco Use Status: Never used Tobacco service: No Current occupational status: unemployed Physical Exam Vital Signs: Last Vital Signs Pulse 75 03/28/24 15:21 BP 118/78 03/28/24 15:21 BMI result Body Mass Index 20.5 Assessment & Plan Assessment & Plan (1) Borderline abnormal TFTs: Code(s): R94.6 - Abnormal results of thyroid function studies Category: Medical Plan: Discussed subclinical hypothyroidism, hypothyroidism. Recheck TSH, free T4, TPO. Will review labs in one week (2) Osteoporosis: Code(s): M81.0 - Age-related osteoporosis without current pathological fracture Category: Medical Qualifiers: Osteoporosis type: age-related Presence of current pathological fracture: without current pathological fracture Qualified Code(s): M81.0 - Age- related osteoporosis without current pathological fracture Plan: Patient will obtain last DXA. Labs ordered. Follow up one month with Dr Márquez Orders: Orders Thyroid Stimulating Hormone 03/28/24 R73.09 - Other abnormal glucose, R94.6 - Abnormal results of thyroid function studies Hemoglobin A1c 03/28/24 R73.09 - Other abnormal glucose, R94.6 - Abnormal results of thyroid function studies Calcium 03/28/24 M81.0 - Age-related osteoporosis without current pathological fracture Phosphorus 03/28/24 M81.0 - Age-related osteoporosis without current pathological fracture Vitamin D 25-OH Total 03/28/24 M81.0 - Age-related osteoporosis without current pathological fracture Free T4 (Free Thyroxine) 03/28/24 R73.09 - Other abnormal glucose, R94.6 - Abnormal results of thyroid function studies Thyroid Peroxidase Antibodies 03/28/24 R73.09 - Other abnormal glucose, R94.6 - Abnormal results of thyroid function studies Vitamin B12 and Folate 03/28/24 R73.09 - Other abnormal glucose, R94.6 - Abnormal results of thyroid function studies Collagen Type I C-Telopeptide 03/28/24 M81.0 - Age-related osteoporosis without current pathological fracture Collagen Crosslinks NTX 03/28/24 M81.0 - Age-related osteoporosis without current pathological fracture Alkaline Phosphatase Bone 03/28/24 M81.0 - Age-related osteoporosis without current pathological fracture Comprehensive Met. Panel 03/28/24 M81.0 - Age-related osteoporosis without current pathological fracture Parathyroid Hormone Intact 03/28/24 M81.0 - Age-related osteoporosis without current pathological fracture Vitamin D 1,25 dihydroxy 03/28/24 M81.0 - Age-related osteoporosis without current pathological fracture Vitamin D 25-OH (D2 and D3) 03/28/24 M81.0 - Age-related osteoporosis without current pathological fracture Coding Level of Care Code Est Pt Level 4 (85924) Diagnoses Borderline abnormal TFTs R94.6 Age-related osteoporosis without current pathological fracture M81.0 Osteoporosis type: age-related Presence of current pathological fracture: without current pathological fracture
[2024-03-28 15:21] VITALS: BP 118/78; PULSE 75; BMI 20.5
== END 2024-03-28 16:04 | disposition home or self-care (01) ==
PROVIDERS: PCP Internal Medicine; Visit Provider Internal Medicine
DX: R94.6 Abnormal results of thyroid function studies (principal); M81.0 Age-related osteoporosis without current pathological fracture

== ENCOUNTER → 2024-03-28 15:18 | Outpatient (BNVA) | payer MEDICARE, SELFPAY | PROVIDERS: PCP Internal Medicine; Visit Provider Internal Medicine | DX: R94.6 Abnormal results of thyroid function studies (principal); M81.0 Age-related osteoporosis without current pathological fracture | CPT/HCPCS: 99212 ==

== ENCOUNTER 2024-04-04 15:56 | Outpatient (REF) | payer MEDICARE, SELFPAY | END 2024-04-04 15:57 | disposition home or self-care (01) | LOC: HO.LAB 15:56 | PROVIDERS: PCP Internal Medicine; Visit Provider Internal Medicine | DX: Z13.89 Encounter for screening for other disorder (principal) ==

== ENCOUNTER 2024-04-05 08:10 | Outpatient (REF) | payer MEDICARE, SELFPAY ==
[2024-04-05 09:31] LABS: Estimated Average Glucose 111 mg/dL; Hemoglobin A1C 130.8895 umol/L; Hemoglobin A1c % 5.5 % (<6.0); Total Hemoglobin (HGBA1C) 3543.8879 umol/L
[2024-04-05 09:43] LABS: Alanine Aminotransferase 22 U/L (0-31); Albumin Level 4.3 g/dL (3.5-5.0); Alkaline Phosphatase 72 U/L (39-117); Anion Gap 11 (12-20); Aspartate Amino Transferase 22 U/L (5-31); Bilirubin Total 0.6 mg/dL (0.0-1.0); Blood Urea Nitrogen 23 mg/dL (9-16); Calcium 9.5 mg/dL (8.4-10.2); Carbon Dioxide 29 mmol/L (22-29); Chloride 106 mmol/L (96-108); Estimated Glomerular Filt Rate > 60; Glucose Random 87 mg/dL (60-115); Phosphorus 3.4 mg/dL (2.7-4.5); Potassium 3.7 mmol/L (3.3-5.1); Sodium 142 mmol/L (135-145); Total Protein 6.9 g/dL (6.5-8.0)
[2024-04-05 09:46] LABS: Parathyroid Hormone Intact 42.7 pg/mL (8.7-77.1)
[2024-04-05 10:06] LABS: Free T4 (Free Thyroxine) 1.06 ng/dL (0.71-1.85); Thyroid Stimulating Hormone 5.12 uIU/mL (0.32-4.0); Vitamin D 25-OH Total 55.9 ng/mL (>30)
[2024-04-05 10:15] LABS: Folate 11.9 ng/mL (> or = 4.0); Vitamin B12 1062 pg/mL (200-900)
[2024-04-06 12:23] LABS: Thyroid Peroxidase Antibodies <1 IU/mL (<9)
[2024-04-10 00:28] LABS: VITAMIN D (1,25 OH) D3 49 pg/mL; Vit D (1,25-Dihydroxy) Total 49 pg/mL (18-72); Vitamin D (1,25 OH) D2 <8 pg/mL
[2024-04-10 14:34] LABS: Collagen Type I C-Telopeptide 471 pg/mL (see note)
[2024-04-13 13:29] LABS: N-Telopeptide 58 (see note); NTXCreaRU 73 mg/dL (20-275)
[2024-04-14 12:08] LABS: Vitamin D 25-OH, D2 <4 ng/mL; Vitamin D 25-OH, D3 41 ng/mL; Vitamin D 25-OH, Total 41 ng/mL (30-100)
== END 2024-04-05 08:11 | disposition home or self-care (01) ==
LOC: HO.LAB 08:10
PROVIDERS: PCP Internal Medicine; Visit Provider Internal Medicine
DX: M81.0 Age-related osteoporosis without current pathological fracture (principal); R73.09 Other abnormal glucose; R94.6 Abnormal results of thyroid function studies
CPT/HCPCS: 36415; 80053; 82306; 82523; 82607; 82652; 82746; 83036; 83970; 84075; 84100; 84439; 84443; 86376

== ENCOUNTER 2024-04-11 15:20 | Outpatient (AMB) | payer MEDICARE, SELFPAY ==
--- NOTE | 2024-04-11 15:22 | A.OFFVIS_ITS ---
Vital Signs 04/11/24 15:23 Height 4 ft 9 in Weight 92 lb 9.506 oz BMI 20.0 BP 138/76 Blood Pressure Location Rt brachial Position Sitting Pulse 71 Pulse Source Pulse Oximeter Intake Visit Reasons: Follow up labs/Confirmed Intake Note: Patient presents today for a follow up on Elevated TSH & Blood Work Results: General Manager In Training Required: No Accompanied by: Daughter Allergies alendronate sodium [From Fosamax] Allergy (Mild, Verified 03/28/24 15:23) unknown HPI Comments Details: The patient is an 79 year old female presenting for abnormal tfts, osteoporosis presenting for follow up labs Abnormal TFTs: Recent TSH 5.12 with free T4 of 1.06. Thyroid peroxidase <1. ~6 months ago TSH 4.66 free T4 0.98. Sees GI for stage 1 gastric motility disorder. Is doing well on Miralax. Energy is good though she offers she may have less over the past few months. No skin, hair changes. History of xray treatment for acne in her teens. Sister with h/o thyroid cancer. At one point in her 20s or 30s patient was on thyroid replacement Osteoporosis: Says last DEXA was in [place] ~01/2023. Says was in osteoporotic range. Was treated with fosamax >10 years ago. Caused severe gastritis, dyspepsia. Denies fractures. Hesitant to consider further treatment though would like to discuss-she has appt for this next month ROS see HPI PHYSICAL EXAM: GENERAL: Alert and oriented x 3. NAD EYES: EOMI. Anicteric. HENT: Moist mucous membranes. No scleral icterus. No cervical lymphadenopathy. Thyroid gland normal size, no discrete nodules appreciated. LUNGS: Clear to auscultation bilaterally. CARDIOVASCULAR: Regular rate and rhythm. No murmur. No JVD. ABDOMEN: Soft, non-tender +bs EXTREMITIES: No edema. Non-tender. SKIN: No rashes or lesions. Warm. No hair thinning NEUROLOGIC: No focal neurological deficits. CN II-XII grossly intact PSYCHIATRIC: Cooperative. Appropriate mood and affect [facility] Medical History (Updated 04/12/24 @ 13:07 by Joselyn Sterling MD) Hearing deficit IBS (irritable bowel syndrome) GERD (gastroesophageal reflux disease) Osteoporosis Surgical History Hx of appendectomy History of bilateral ligation of fallopian tubes Hx of colonoscopy History of esophagogastroduodenoscopy (EGD) Social History Household Members: None Housing: House Alcohol intake: current Alcohol intake frequency: holidays/special occasions only Patient Tobacco Use Status: Never used Tobacco service: No Current occupational status: unemployed Physical Exam Vital Signs: Last Vital Signs Pulse 71 04/11/24 15:23 BP 138/76 04/11/24 15:23 BMI result Body Mass Index 20.0 Assessment & Plan Assessment & Plan (1) Subclinical hypothyroidism: Code(s): E03.8 - Other specified hypothyroidism Category: Medical Plan: Discussed no indication for treatment at this time Recommend q6-1year check of TSH at PCP (2) Osteoporosis: Code(s): M81.0 - Age-related osteoporosis without current pathological fracture Category: Medical Qualifiers: Osteoporosis type: age-related Presence of current pathological fracture: without current pathological fracture Qualified Code(s): M81.0 - Age- related osteoporosis without current pathological fracture Plan: She will see Dr Márquez next month and bring her last bone density test before the visit (3) Abnormal CBC: Code(s): R79.89 - Other specified abnormal findings of blood chemistry Category: Medical Plan: Advised she should follow up with PCP who can ultimately decide interval to check CBC-elevated MCV and [id number] without supplements Orders: Orders IRON PROFILE 04/11/24 R79.89 - Other specified abnormal findings of blood chemistry Coding Level of Care Code Est Pt Level 5 (38730) Diagnoses Subclinical hypothyroidism E03.8 Age-related osteoporosis without current pathological fracture M81.0 Osteoporosis type: age-related Presence of current pathological fracture: without current pathological fracture Abnormal CBC R79.89 Time Spent (min) 55
[2024-04-11 15:23] VITALS: BP 138/76; PULSE 71
== END 2024-04-11 16:07 | disposition home or self-care (01) ==
PROVIDERS: PCP Internal Medicine; Visit Provider Internal Medicine
DX: E03.8 Other specified hypothyroidism (principal); M81.0 Age-related osteoporosis without current pathological fracture; R79.89 Other specified abnormal findings of blood chemistry

== ENCOUNTER → 2024-04-11 15:20 | Outpatient (BNVA) | payer MEDICARE, SELFPAY | PROVIDERS: PCP Internal Medicine; Visit Provider Internal Medicine | DX: E03.8 Other specified hypothyroidism (principal); M81.0 Age-related osteoporosis without current pathological fracture; R79.89 Other specified abnormal findings of blood chemistry | CPT/HCPCS: 99212 ==

== ENCOUNTER 2024-04-24 15:16 | Outpatient (REF) | payer MEDICARE, SELFPAY ==
[2024-04-24 16:18] LABS: Calcium 9.8 mg/dL (8.4-10.2); Iron 90 mcg/dL (30-160); Percent Iron Saturation 32 % (15-50); Total Iron Binding Capacity 279 mcg/dL (228-428); Unsaturated Iron Binding 189 ug/dL
== END 2024-04-24 15:17 | disposition home or self-care (01) ==
LOC: HO.LAB 15:16
PROVIDERS: Visit Provider Internal Medicine
DX: R79.89 Other specified abnormal findings of blood chemistry (principal); M81.0 Age-related osteoporosis without current pathological fracture
CPT/HCPCS: 36415; 82310; 83540

== ENCOUNTER 2024-04-27 08:53 | Outpatient (AMB) | payer MEDICARE, SELFPAY ==
--- NOTE | 2024-04-27 08:58 | A.OFFVIS_ITS ---
Vital Signs 04/27/24 08:59 Height 4 ft 9 in Weight 92 lb 9.506 oz BMI 20.0 BP 136/60 Blood Pressure Location Lt brachial Position Sitting Pulse 75 Intake Visit Reasons: 4 month follow up Intake Note: She states that she just has some questions for the Supervisor Body Assembly Required: No Allergies alendronate sodium [From Fosamax] Allergy (Mild, Verified 04/27/24 08:59) unknown HPI HPI 4 month follow up: Details: 79 yr old f here for f/u RECAP: she has had GERD since s --started after she took fosamax she also has long standing constipation, little bits coming out she was taking metamucil, wafers --stopped due to sugar content she had colonoscopy 2014- hx of benign polyps she was on and off ppi, zantac, then went off meds for long time she had anxiety due to of and recurrent heartbrun she does have satiety--eating smaller meals she has tightness in throat, can be worse with bending weight loss 10# over few years 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 seen boiler inspector for left sided pains, in chest, stabbing, sharp, not getting it that often she had qns, reviewed labs and CT scan with her she had some back pain recently, scoliosis and degen in spine per CT--showed pics to the patient TESTS: US 02/2022- steatosis, gallstones CT 03/25/22: constipation, severe scoliosos and spine degeneration MRI: 05/2022--constipation, distended stomach, scoliosis, and compression # GES: 08/2022-- GES: 20% pelvic US- atrophic uterus, otherwise nml CT 04/11 -fluid filled stomach, marked scoliosis, large stool burden LABS: stable raised MCV and mild urea elevation, nml HGB Endoscopy Findings: 03/2022 hiatal hernia esophagitis gastritis gastric polyps Colonoscopy Findings: internal hemorrhoids PATH: neg for colitis, malabsorption Rept labs: raised MCV, BUN, ant hu and Yo are neg INTERIM: she is feeling pretty good today she went to Dr Linnea harris, endocrinology due to high TSH, being kept under review she is happy with miralax seenig nutrition, happy wth the advice for weight gain and diet weight has been stable no abdominal pain EXAM: GENERAL: The patient is thin and frail VITAL SIGNS:see workflow HEENT: Nonicteric sclerae, PERRLA, EOMI. Oropharynx clear. Moist mucous membranes. Conjunctivae appear well perfused. No thyroid mass. CHEST: Chest wall is nontender. HEART: Regular rate and rhythm without murmurs. LUNGS: Clear to auscultation bilaterally. ABDOMEN: Soft, positive bowel sounds, tender epigastrium, no organomegaly.no flank tenderness SKIN: No rash, no excessive bruising, petechiae, or purpura. NEUROLOGIC: Cranial nerves II-XII intact without motor/sensory deficit. MS: severe scoliosis psych-nml affect a/P: 1/ high amylase prob 2/2 reflux and salivary irritation, but could be due to gastroparesis--stable 2/ high MCV, nml B12 and folate, saw Dr James, no concerns--also seeing endocrinology 3/ GERD and constipation, may be due to severe scolosis or neuropathy, dysmotility, hiatal hernia, altered anatomy , may have dysmotility, has gastroparesis on testing 4/ FTT, she is worried about cancer --no sign of this on testing thus far PLAN: 1/ repeat MRI 2/ reepat amylase, lipase and check ferritin [facility] Medical History Hearing deficit IBS (irritable bowel syndrome) GERD (gastroesophageal reflux disease) Osteoporosis Surgical History Hx of appendectomy History of bilateral ligation of fallopian tubes Hx of colonoscopy History of esophagogastroduodenoscopy (EGD) Social History Household Members: None Housing: House Alcohol intake: current Alcohol intake frequency: holidays/special occasions only Patient Tobacco Use Status: Never used Tobacco service: No Current occupational status: unemployed Physical Exam Vital Signs: Last Vital Signs Pulse 75 04/27/24 08:59 BP 136/60 04/27/24 08:59 BMI result Body Mass Index 20.0 Assessment & Plan Assessment & Plan (1) Elevated amylase: Code(s): R74.8 - Abnormal levels of other serum enzymes Category: Medical Plan: see above (2) Subclinical hypothyroidism: Code(s): E03.8 - Other specified hypothyroidism Category: Medical Plan: see above Orders: Orders Lipase Today E03.8 - Other specified hypothyroidism, R74.8 - Abnormal levels of other serum enzymes MR abdomen wo/w con Today R63.4 - Abnormal weight loss Ferritin Today E03.8 - Other specified hypothyroidism, R74.8 - Abnormal levels of other serum enzymes Amylase Today E03.8 - Other specified hypothyroidism, R74.8 - Abnormal levels of other serum enzymes Coding Level of Care Code Est Pt Level 3 (09858) Diagnoses Elevated amylase R74.8 Subclinical hypothyroidism E03.8
[2024-04-27 08:59] VITALS: BP 136/60; PULSE 75
== END 2024-04-27 09:43 | disposition home or self-care (01) ==
PROVIDERS: PCP Internal Medicine; Visit Provider Internal Medicine Gastroenterology
DX: R74.8 Abnormal levels of other serum enzymes (principal); E03.8 Other specified hypothyroidism
CPT/HCPCS: 99213

== ENCOUNTER → 2024-04-27 08:53 | Outpatient (BNVA) | payer MEDICARE, SELFPAY | PROVIDERS: PCP Internal Medicine; Visit Provider Internal Medicine Gastroenterology | DX: R74.8 Abnormal levels of other serum enzymes (principal); E03.8 Other specified hypothyroidism | CPT/HCPCS: 99212 ==

== ENCOUNTER 2024-05-01 15:16 | Outpatient (AMB) | payer MEDICARE, SELFPAY ==
--- NOTE | 2024-05-01 15:21 | A.OFFVIS_ITS ---
Vital Signs 05/01/24 15:29 Height 4 ft 9 in Weight 92 lb 9.506 oz BMI 20.0 BP 126/78 Blood Pressure Location Rt brachial Position Sitting Pulse 86 Pulse Source Pulse Oximeter Intake Visit Reasons: Osteoporosis-lvm Intake Note: Patient present today for Osteoporosis Industrial Cleaner Required: No Accompanied by: Self / Same As Patient Allergies alendronate sodium [From Fosamax] Allergy (Mild, Verified 04/27/24 08:59) unknown Medication List - Last Reconciled 05/01/24 by Yonas Márquez MD fluocinonide 0.05% topical ketoconazole 2% topical polyethylene glycol 3350 (Miralax) 17 grams PO DAILY HPI Comments Details: 79 YO Female withis seen in consultation at the request of PCP for Osteoporosis. 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 Has several servings of dietary calcium per day in the form of milk, yogurt . Takes Liquid Calcium supplement ? mg daily in divided doses. Takes 2000 IU of Vitamin D daily. Used PPI, anticoagulant, antiepileptic or glucocorticoid medication. Did do weight bearing exercise 2 days per week in the form of Better Bones and Balance . Fracture history: No Height loss: Yes OVERSEAMER history: Menarche at age 12- menopause at 36- did have ERT for 4 yrs Denies history of Kidney stones: Has family history of Osteoporosis in mother and sister but no hip fracture. UTD on dental cleanings and sees dentist every 6 months. No planned upcoming dental work or extractions. DXA dated []:T Score of -4.9 T SCore of -4.3 in femoral neck Had irradiation treatment for acne many yrs ago Labs: [facility] Medical History Hearing deficit IBS (irritable bowel syndrome) GERD (gastroesophageal reflux disease) Osteoporosis Surgical History Hx of appendectomy History of bilateral ligation of fallopian tubes Hx of colonoscopy History of esophagogastroduodenoscopy (EGD) Social History Household Members: None Housing: House Alcohol intake: current Alcohol intake frequency: holidays/special occasions only Patient Tobacco Use Status: Never used Tobacco service: No Current occupational status: unemployed Physical Exam Vital Signs: Last Vital Signs Pulse 86 05/01/24 15:29 BP 126/78 05/01/24 15:29 BMI result Body Mass Index 20.0 Assessment & Plan Assessment & Plan (1) Osteoporosis: Code(s): M81.0 - Age-related osteoporosis without current pathological fracture Category: Medical Qualifiers: Osteoporosis type: age-related Presence of current pathological fracture: without current pathological fracture Qualified Code(s): M81.0 - Age- related osteoporosis without current pathological fracture Plan: This is a 79 yo female with a history of severe osteoporosis with partial secondary workup. Would complete secondary workup by checking SPEP, urine immunofixation and 24 hr urine for calcium and creatinine. Assuming above is nl, would consider transitioning to anabolic therapy perhaps with Evenity considering very low bone density and high risk for fx. Will ensure 1200 mg of calcium and continued vitamin D supplementation. Tymlos and Forteo are relatively contraindicated because of history of irradiation Orders: Orders Creatinine, 24 Hr Group Today M81.0 - Age-related osteoporosis without current pathological fracture Calcium, 24 Hr Ur Today M81.0 - Age-related osteoporosis without current pathological fracture Protein Electrophoresis, Serum Today M81.0 - Age-related osteoporosis without current pathological fracture Immunofixation, Random Urine Today M81.0 - Age-related osteoporosis without current pathological fracture Coding Level of Care Code New Pt Level 4 (33100) Diagnoses Age-related osteoporosis without current pathological fracture M81.0 Osteoporosis type: age-related Presence of current pathological fracture: without current pathological fracture
[2024-05-01 15:29] VITALS: BP 126/78; PULSE 86
== END 2024-05-01 16:30 | disposition home or self-care (01) ==
PROVIDERS: PCP Internal Medicine; Visit Provider Internal Medicine Endocrinology, Diabetes & Metabolism
DX: M81.0 Age-related osteoporosis without current pathological fracture (principal)
CPT/HCPCS: 99204

== ENCOUNTER → 2024-05-01 15:16 | Outpatient (BNVA) | payer MEDICARE, SELFPAY | PROVIDERS: PCP Internal Medicine; Visit Provider Internal Medicine Endocrinology, Diabetes & Metabolism | DX: M81.0 Age-related osteoporosis without current pathological fracture (principal) | CPT/HCPCS: 99202 ==

== ENCOUNTER 2024-05-02 12:54 | Outpatient (REF) | payer MEDICARE, SELFPAY ==
[2024-05-02 15:13] LABS: Cholesterol 181 mg/dL (<200); HDL Cholesterol 63 mg/dL (>40); LDL Cholesterol Calculated 107 mg/dL (<100); Triglycerides 56 mg/dL (<150)
[2024-05-02 20:57] LABS: Amylase 161 U/L (28-100); Lipase 25 U/L (8-78)
[2024-05-02 21:13] LABS: Ferritin 107 ng/mL (10-250)
== END 2024-05-02 12:55 | disposition home or self-care (01) ==
LOC: HO.LAB 12:54
PROVIDERS: Absent Provider Internal Medicine; PCP Internal Medicine; Visit Provider Internal Medicine Gastroenterology
DX: R74.8 Abnormal levels of other serum enzymes (principal); E03.8 Other specified hypothyroidism
CPT/HCPCS: 36415; 80061; 82150; 82728; 83690

== ENCOUNTER 2024-05-28 10:38 | Outpatient (REF) | payer MEDICARE, SELFPAY ==
--- NOTE | ~2024-05-28 | MR_ITS ---
EXAMINATION: MR ABDOMEN WITHOUT AND WITH CONTRAST CLINICAL INFORMATION: Abnormal weight loss COMPARISON: CT abdomen and pelvis on 04/18/2023 TECHNIQUE: MR abdomen was performed without and with use of 4 mL intravenous Gadavist gadolinium contrast. Postcontrast images are performed in multiphase dynamic sequences. Imaging was performed in 3 planes. FINDINGS: LUNG BASES: Left lower lobe scarring. LIVER, GALLBLADDER, AND BILIARY TREE: The liver is normal in size, smooth in contour, and normal in signal. No focal hepatic lesion or biliary ductal dilatation is present. The gallbladder is decompressed with no evidence of gallbladder wall thickening, or obvious pericholecystic inflammatory changes. PANCREAS: No pancreatic ductal dilatation or pancreatic lesions. SPLEEN: Normal. ADRENAL GLANDS: Normal. KIDNEYS AND URETERS: The kidneys are normal in size, shape, and enhance symmetrically. No hydronephrosis. No perinephric stranding. Bilateral nonenhancing parapelvic T2 hyperintense cysts. GASTROINTESTINAL TRACT: No bowel obstruction. No ascites or fluid collection. ABDOMINAL WALL: No significant hernia is appreciated. LYMPH NODES: No lymphadenopathy. VASCULAR: Unremarkable. OSSEOUS STRUCTURES: Scoliosis of the thoracolumbar spine. MR/MR abdomen wo/w con IMPRESSION: No acute abnormality. Electronically signed by: Glenys Godinez MD 05/28/2024 07:40 PM EST
[2024-05-28] MEDS: gadobutroL 7.5 ML VIAL IVPUSH (11:56)
== END 2024-05-28 10:39 | disposition home or self-care (01) ==
LOC: HO.MRI 10:38
PROVIDERS: PCP Internal Medicine; Visit Provider Internal Medicine Gastroenterology
DX: R63.4 Abnormal weight loss (principal)
CPT/HCPCS: 74183; A9585

== ENCOUNTER 2024-06-08 13:15 | Outpatient (REF) | payer MEDICARE, SELFPAY ==
[2024-06-08 13:37] LABS: Total Volume 24 Hour Urine 850 mL
[2024-06-08 14:36] LABS: Creatinine, 24Hr Urine 0.5 G/Day (1.0-2.0); Creatinine, mg/dL 61.58
[2024-06-11 15:54] LABS: Calcium, 24 Hr Urine 75 mg/24 h; Calcium/Creatinine Ratio 142 mg/g creat (30-275); Creatinine 24Hr Urine 0.53 g/24 h (0.50-2.15)
== END 2024-06-08 13:16 | disposition home or self-care (01) ==
LOC: HO.LNP 13:15
PROVIDERS: Visit Provider Internal Medicine Endocrinology, Diabetes & Metabolism
DX: M81.0 Age-related osteoporosis without current pathological fracture (principal)
CPT/HCPCS: 82340; 82570

== ENCOUNTER 2024-06-18 09:18 | Outpatient (AMB) | payer MEDICARE, SELFPAY ==
--- NOTE | 2024-06-18 09:22 | A.OFFVIS_ITS ---
Vital Signs 06/18/24 09:29 Height 4 ft 10.19 in Weight 95 lb 10.89 oz BMI 19.9 BP 110/64 Blood Pressure Location Rt brachial Position Sitting Pulse 79 Pulse Source Pulse Oximeter Intake Visit Reasons: f/u osteoporosis Intake Note: Patient present today for Osteoporosis follow up. Government Sales Manager Required: No Accompanied by: Daughter Allergies alendronate sodium [From Fosamax] Allergy (Mild, Verified 06/18/24 09:30) unknown Medication List - Last Reconciled 06/18/24 by Yonas Márquez MD fluocinonide 0.05% topical ketoconazole 2% topical polyethylene glycol 3350 (Miralax) 17 grams PO DAILY HPI Comments Details: 79 YO Female withis seen in consultation at the request of PCP for Osteoporosis. 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 Has several servings of dietary calcium per day in the form of milk, yogurt . Takes Liquid Calcium supplement ? mg daily in divided doses. Takes 2000 IU of Vitamin D daily. Used PPI, anticoagulant, antiepileptic or glucocorticoid medication. Did do weight bearing exercise 2 days per week in the form of Better Bones and Balance . 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 UTD on dental cleanings and sees dentist every 6 months. No planned upcoming dental work or extractions. DXA dated []:T Score of -4.9 T SCore of -4.3 in femoral neck Had irradiation treatment for acne many yrs ago Labs: Secondary workup was negative [facility] Medical History Hearing deficit IBS (irritable bowel syndrome) GERD (gastroesophageal reflux disease) Osteoporosis Surgical History Hx of appendectomy History of bilateral ligation of fallopian tubes Hx of colonoscopy History of esophagogastroduodenoscopy (EGD) Social History Household Members: None Housing: House Alcohol intake: current Alcohol intake frequency: holidays/special occasions only Patient Tobacco Use Status: Never used Tobacco service: No Current occupational status: unemployed Assessment & Plan Assessment & Plan (1) Osteoporosis: Code(s): M81.0 - Age-related osteoporosis without current pathological fracture Category: Medical Qualifiers: Osteoporosis type: age-related Presence of current pathological fracture: without current pathological fracture Qualified Code(s): M81.0 - Age- related osteoporosis without current pathological fracture Plan: This is a 79 yo female with a history of severe osteoporosis with secondary workup negative. Would consider transitioning to anabolic therapy perhaps with Evenity considering very low bone density and high risk for fx. Will ensure 1200 mg of calcium and continued vitamin D supplementation. Tymlos and Forteo are relatively contraindicated because of history of irradiation. Patient previously could not tolerate alendronate. She has not decided yet on what therapy she would like if any pharmacologically but will get back to me in the next couple of months if she would like to proceed with the Evenity or another therapy Coding Level of Care Code Est Pt Level 3 (24812) Diagnoses Age-related osteoporosis without current pathological fracture M81.0 Osteoporosis type: age-related Presence of current pathological fracture: without current pathological fracture
[2024-06-18 09:29] VITALS: BP 110/64; PULSE 79; BMI 19.9
== END 2024-06-18 10:18 | disposition home or self-care (01) ==
PROVIDERS: PCP Internal Medicine; Visit Provider Internal Medicine Endocrinology, Diabetes & Metabolism
DX: M81.0 Age-related osteoporosis without current pathological fracture (principal)
CPT/HCPCS: 99213

== ENCOUNTER → 2024-06-18 09:18 | Outpatient (BNVA) | payer MEDICARE, SELFPAY | PROVIDERS: PCP Internal Medicine; Visit Provider Internal Medicine Endocrinology, Diabetes & Metabolism | DX: M81.0 Age-related osteoporosis without current pathological fracture (principal) | CPT/HCPCS: 99212 ==

== ENCOUNTER 2024-06-25 09:53 | Outpatient (AMB) | payer MEDICARE, SELFPAY ==
--- NOTE | 2024-06-25 09:56 | A.OFFVIS_ITS ---
Vital Signs 06/25/24 09:57 Height 4 ft 9 in Weight 93 lb 14.671 oz BMI 20.3 BP 148/76 H Blood Pressure Location Lt brachial Position Sitting Pulse 62 Pulse Source Pulse Oximeter Intake Visit Reasons: gastroparesis, monitor weight/Confirmed Intake Note: Patient present today for Gastroparesis and monitor weight. Photo Studio Assistant Required: No Accompanied by: Self / Same As Patient Allergies alendronate sodium [From Fosamax] Allergy (Mild, Verified 06/25/24 10:02) unknown PFSH Medical History Hearing deficit IBS (irritable bowel syndrome) GERD (gastroesophageal reflux disease) Osteoporosis Surgical History Hx of appendectomy History of bilateral ligation of fallopian tubes Hx of colonoscopy History of esophagogastroduodenoscopy (EGD) Social History Household Members: None Housing: House Alcohol intake: current Alcohol intake frequency: holidays/special occasions only Patient Tobacco Use Status: Never used Tobacco service: No Current occupational status: unemployed Coding
[2024-06-25 09:57] VITALS: BP 148/76; PULSE 62; BMI 20.3
--- NOTE | 2024-06-25 10:09 | MHC.AMNUTRGE ---
VS Expanded 06/25/24 09:57 BP 148/76 H Blood Pressure Location Lt brachial Blood Pressure Position Sitting Pulse 62 Pulse Source Pulse Oximeter Height 4 ft 9 in Weight 93 lb 14.671 oz BMI 20.3 Intake Visit Reasons: gastroparesis, monitor weight/Confirmed Allergies alendronate sodium [From Fosamax] Allergy (Mild, Verified 06/25/24 10:02) unknown Nutrition Presentation Details: Pt presents for MNT f/u . Pt was originally losing weight related to gastroparesis and diet restrictions. Pt reports feeling better and working on having small but frequent meals throughout the day. Reports having stopped nutritional supplements or milk/peanut butter shake Pt reports having stopped participating from the [employer] activities but is contemplating in resuming activities which she enjoys wt today at 93 lbs, no weight loss since last visit 4-6 months ago. Pt denies constipation/diarrhea/vomiting Has questions about calcium rich foods, adding flavors to foods BS Monitoring Most Recent Diabetes Results: Cholesterol 181 mg/dL (<200) 05/02/24 HDL Cholesterol 63 mg/dL (>40) 05/02/24 Triglycerides 56 mg/dL (<150) 05/02/24 Calcium 9.8 mg/dL (8.4-10.2) 04/24/24 PFSH Medical History Hearing deficit IBS (irritable bowel syndrome) GERD (gastroesophageal reflux disease) Osteoporosis Surgical History Hx of appendectomy History of bilateral ligation of fallopian tubes Hx of colonoscopy History of esophagogastroduodenoscopy (EGD) Social History Household Members: None Housing: House Alcohol intake: current Alcohol intake frequency: holidays/special occasions only Patient Tobacco Use Status: Never used Tobacco service: No Current occupational status: unemployed Assessment & Plan Assessment & Plan (1) Weight loss: Comment: Pt maintaining weight at 93 lbs in the past 4 months Code(s): R63.4 - Abnormal weight loss Category: Medical Plan: Incorporating MUFA/PUFA in diet wt: 39.5 kg (05/2024), remains on 06/2023, 41 kg (08/2023), 42 kg(02/2024), 06/2023 Est kcal needs as per MSJ: 1000 + 500/1000 = 1107-8772 (40% carb, 30% protein/fat) Est fluid needs as per 30 ml/d: 1200 Est prot per day as per 1 g/kg bw: 39 Recommend fiber intake : 8-10 g per day Recommend sodium intake per day : less than 2000 mg Educated patient on: ( R = reviewed V = verbalizes understanding N/R = needs review N/A = not applicable Gradually increasing calories from protein and starches Choosing protein in liquid form and nutrient dense foods /snacks : R MUFA/PUFA vs Sat'd fats : R (2) Gastroparesis: Code(s): K31.84 - Gastroparesis Category: Medical Plan: Continue as established, having 4-6 small meals per day, include 1 %milk with your meals in place of water or tea Have a meal supplement once or twice a day or a pudding or 1/2 sand as snack , add yogurt , olive oil, or olives keep walking as able /safely unless otherwise specified by doctor Work on prevention of weight loss Continue trying a variety of foods Patient Instructions: Include calcium rich foods try adding 1/2 cup of calcium fortified juice to cottage cheese add peanut butter, prune to milk and make a smoothie increase flavor by adding honey or molasess to cereals as example or smoothies as example Coding Level of Care Code Nutr Indiv Subseq (64382) Diagnoses Weight loss R63.4 Gastroparesis K31.84 Time Spent (min) 30
== END 2024-06-25 10:51 | disposition home or self-care (01) ==
PROVIDERS: PCP Internal Medicine; Visit Provider Dietitian, Registered
DX: R63.4 Abnormal weight loss (principal); K31.84 Gastroparesis

== ENCOUNTER → 2024-06-25 09:53 | Outpatient (BNVA) | payer MEDICARE, SELFPAY | PROVIDERS: PCP Internal Medicine; Visit Provider Dietitian, Registered | DX: R63.4 Abnormal weight loss (principal); K31.84 Gastroparesis | CPT/HCPCS: 97803 ==

== ENCOUNTER 2024-11-28 11:35 | Outpatient (AMB) | payer MEDICARE, SELFPAY ==
[2024-11-28 11:46] VITALS: BMI 19.8
--- NOTE | 2024-11-28 11:46 | A.OFFVIS_ITS ---
VS Expanded 11/28/24 11:46 Height 4 ft 9 in Weight 91 lb 7.869 oz BMI 19.8 Intake Visit Reasons: gastroparesis Allergies alendronate sodium (From Fosamax) Allergy (Mild, Verified 06/25/24 10:02) unknown Nutrition Presentation Details: Pt presents for MNT f/u to monitor weight Pt has hx of gastroparesis Pt reports challenges with choosing foods when away from home but managing. When at home has 3-4 small meals, including lean protein foods and own recipes Working on s keeping hydrated, water or tea with no sugar added with meals (16- 24 oz/d) [facility] - 2-3 x a week , and sometimes participates both the meals and exercise program denies vomiting / diarrhea BS Monitoring Most Recent Diabetes Results: Cholesterol, (<200) 181 mg/dL 05/02/24 HDL Cholesterol, (>40) 63 mg/dL 05/02/24 Triglycerides, (<150) 56 mg/dL 05/02/24 Creatinine, (0.5-1.4) 0.86 mg/dL Today BUN, (9-16) 23 mg/dL H Today Sodium, (135-145) 141 mmol/L Today Potassium, (3.3-5.1) 4.1 mmol/L Today Chloride, (96-108) 109 mmol/L H Today Carbon Dioxide, (22-29) 26 mmol/L Today Calcium, (8.4-10.2) 9.3 mg/dL Today AST, (5-31) 27 U/L Today ALT, (0-31) 24 U/L Today Total Protein, (6.5-8.0) 6.3 g/dL L Today Albumin, (3.5-5.0) 4.1 g/dL Today [facility] Medical History Hearing deficit IBS (irritable bowel syndrome) GERD (gastroesophageal reflux disease) Osteoporosis Surgical History Hx of appendectomy History of bilateral ligation of fallopian tubes Hx of colonoscopy History of esophagogastroduodenoscopy (EGD) Social History Household Members: None Housing: House Alcohol intake: current Alcohol intake frequency: holidays/special occasions only Patient Tobacco Use Status: Never used Tobacco service: No Current occupational status: unemployed Assessment & Plan Assessment & Plan (1) Weight loss: Comment: Pt maintaining weight at 93 lbs in the past 4 months Code(s): R63.4 - Abnormal weight loss Category: Medical Plan: Incorporating vitamin C food sources in diet wt: 39.5 kg (05/2024), remains on 06/2023, 41 kg (08/2023), 42 kg(02/2024), 06/2023, 41 kg (12/12) Est kcal needs as per MSJ: 1000 + 500/1000 = 2511-3332 (40% carb, 30% protein/fat) Est fluid needs as per 30 ml/d: 1200 Est prot per day as per 1 g/kg bw: 39 Recommend fiber intake : 8-10 g per day Recommend sodium intake per day : less than 2000 mg Educated patient on: ( R = reviewed V = verbalizes understanding N/R = needs review N/A = not applicable * Gradually increasing calories from protein and starches * Choosing protein in liquid form and nutrient dense foods /snacks : R * MUFA/PUFA vs Sat'd fats : R (2) Gastroparesis: Code(s): K31.84 - Gastroparesis Category: Medical Plan: Incorporating vitamin C food sources in diet wt: 39.5 kg (05/2024), remains on 06/2023, 41 kg (08/2023), 42 kg(02/2024), 06/2023, 41 kg (12/12) Est kcal needs as per MSJ: 1000 + 500/1000 = 3631-8176 (40% carb, 30% protein/fat) Est fluid needs as per 30 ml/d: 1200 Est prot per day as per 1 g/kg bw: 39 Recommend fiber intake : 8-10 g per day Recommend sodium intake per day : less than 2000 mg Educated patient on: ( R = reviewed V = verbalizes understanding N/R = needs review N/A = not applicable * Gradually increasing calories from protein and starches * Choosing protein in liquid form and nutrient dense foods /snacks : R * MUFA/PUFA vs Sat'd fats : R Patient Instructions: Have juice with the meal as part of hydration, ok to dilute with water continue trying a variety of foods Coding Level of Care Code Nutr Indiv Subseq (06007) Diagnoses Weight loss R63.4 Gastroparesis K31.84 Time Spent (min) 25
== END 2024-11-28 12:16 | disposition home or self-care (01) ==
LOC: HO.ENCR 11:36
PROVIDERS: PCP Internal Medicine; Visit Provider Dietitian, Registered
DX: R63.4 Abnormal weight loss (principal); K31.84 Gastroparesis

== ENCOUNTER → 2024-11-28 11:35 | Outpatient (BNVA) | payer MEDICARE, SELFPAY | PROVIDERS: PCP Internal Medicine; Visit Provider Dietitian, Registered | DX: R63.4 Abnormal weight loss (principal); K31.84 Gastroparesis | CPT/HCPCS: 97803 ==

== ENCOUNTER 2024-12-10 09:28 | Outpatient (REF) | payer MEDICARE, SELFPAY ==
[2024-12-10 09:45] LABS: MANUAL DIFF FLAG NO
[2024-12-10 10:33] LABS: Basophils Percent Auto 0.7 % (0-2); Hematocrit 36.8 % (37.0-47.0); Hemoglobin 12.5 g/dl (12.0-16.0); Imm Gran Abs Auto 0.01 X10*3/uL (0.00-0.03); Imm Gran Pct Auto 0.2 % (0.0-0.4); Lymphocytes Absolute Auto 0.8 X10*3/uL (1.2-4.9); Lymphocytes Percent Auto 18.8 % (20-40); Mean Corpuscular Hemoglobin 33.7 pg (27.0-33.0); Mean Corpuscular Volume 99.2 fL (80.0-98.0); Mean Platelet Volume 11.3 fL (9.4-12.3); Monocytes Absolute Auto 0.4 X10*3/uL (0.1-1.2); Monocytes Percent Auto 9.9 % (2-11); Neutrophils Absolute Auto 2.9 x10*3/uL (2.0-8.3); Neutrophils Percent Auto 69.4 % (45-73); Platelet Count 196 X10*3/uL (160-400); Red Blood Count 3.71 X10*6/uL (4.20-5.50); Red Cell Distribution Width 13.9 % (11.0-16.0); White Blood Count 4.2 X10*3/uL (4.8-10.8)
[2024-12-10 11:24] LABS: Alanine Aminotransferase 24 U/L (0-31); Albumin Level 4.1 g/dL (3.5-5.0); Alkaline Phosphatase 61 U/L (39-117); Amylase 160 U/L (28-100); Anion Gap 10 (12-20); Aspartate Amino Transferase 27 U/L (5-31); Bilirubin Total 0.5 mg/dL (0.0-1.0); Blood Urea Nitrogen 23 mg/dL (9-16); Calcium 9.3 mg/dL (8.4-10.2); Carbon Dioxide 26 mmol/L (22-29); Chloride 109 mmol/L (96-108); Estimated Glomerular Filt Rate > 60; Glucose Random 84 mg/dL (60-115); Lipase 41 U/L (8-78); Potassium 4.1 mmol/L (3.3-5.1); Sodium 141 mmol/L (135-145); Total Protein 6.3 g/dL (6.5-8.0)
== END 2024-12-10 09:29 | disposition home or self-care (01) ==
LOC: HO.LAB 09:28
PROVIDERS: PCP Internal Medicine; Visit Provider Internal Medicine Gastroenterology
DX: K75.81 Nonalcoholic steatohepatitis (NASH) (principal); R94.6 Abnormal results of thyroid function studies; R74.8 Abnormal levels of other serum enzymes
CPT/HCPCS: 36415; 80053; 82150; 83690; 85025

== ENCOUNTER 2024-12-17 09:38 | Outpatient (AMB) | payer MEDICARE, SELFPAY ==
--- NOTE | 2024-12-17 09:44 | A.OFFVIS_ITS ---
Vital Signs 12/17/24 09:45 Height 4 ft 9 in Weight 88 lb 10.013 oz BMI 19.2 BP 132/66 Blood Pressure Location Lt brachial Position Sitting Pulse 67 Intake Visit Reasons: 6 f/u r/s 11/02/24 Intake Note: Jocelin presents in the office as a 6 month follow up. CC: States that her weight is an issue and there was someting on her last MRI that had to do with that basis of her lungs and scarring. 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 Allergies alendronate sodium (From Fosamax) Allergy (Mild, Verified 12/17/24 09:47) unknown HPI HPI 6 f/u r/s 11/02/24: Details: 79 yr old f here for f/u RECAP: she has had GERD since --started after she took fosamax she also has long standing constipation, little bits coming out she was taking metamucil, wafers --stopped due to sugar content she had colonoscopy 2014- hx of benign polyps she was on and off ppi, zantac, then went off meds for long time she had anxiety due to of and recurrent heartbrun she does have satiety--eating smaller meals she has tightness in throat, can be worse with bending weight loss 10# over few years has seen maxillofacial pathology for left sided pains, in chest, stabbing, sharp, not getting it that often she had qns, reviewed labs and CT scan with her she had some back pain recently, scoliosis and degen in spine per CT--showed pics to the patient TESTS: US 02/2022- steatosis, gallstones CT 03/25/22: constipation, severe scoliosos and spine degeneration MRI: 05/2022--constipation, distended stomach, scoliosis, and compression # GES: 08/2022-- GES: 20% pelvic US- atrophic uterus, otherwise nml CT 04/11 -fluid filled stomach, marked scoliosis, large stool burden MRI 06/12- no acute abn LABS: stable raised MCV and mild urea elevation, nml HGB Endoscopy Findings: 03/2022 hiatal hernia esophagitis gastritis gastric polyps Colonoscopy Findings: internal hemorrhoids PATH: neg for colitis, malabsorption Rept labs: raised MCV, BUN, ant hu and Yo are neg INTERIM: she is feeling pretty good today smokes THC which helps weight has been stable no abdominal pain has occ wheezing and MRI did show scarring at the lower lobe EXAM: GENERAL: The patient is thin and frail VITAL SIGNS:see workflow HEENT: Nonicteric sclerae, PERRLA, EOMI. Oropharynx clear. Moist mucous membranes. Conjunctivae appear well perfused. No thyroid mass. CHEST: Chest wall is nontender. HEART: Regular rate and rhythm without murmurs. LUNGS: Clear to auscultation bilaterally. ABDOMEN: Soft, positive bowel sounds, tender epigastrium, no organomegaly.no flank tenderness SKIN: No rash, no excessive bruising, petechiae, or purpura. NEUROLOGIC: Cranial nerves II-XII intact without motor/sensory deficit. MS: severe scoliosis psych-nml affect a/P: 1/ high amylase prob 2/2 reflux and salivary irritation, but could be due to gastroparesis--stable 2/ high MCV, nml B12 and folate, saw Dr James, no concerns--also seeing endocrinology 3/ GERD and constipation, may be due to severe scolosis or neuropathy, dysmotility, hiatal hernia, altered anatomy , may have dysmotility, has gastroparesis on testing 4/ FTT, she is worried about cancer --no sign of this on testing thus far --weight has been stable 5/ wheezing and lung scarring PLAN: 1/ refer pulm for lung eval 2/ discussed using mirtazepine--she will consider 3/ rept panc elastase [facility] Medical History Hearing deficit IBS (irritable bowel syndrome) GERD (gastroesophageal reflux disease) Osteoporosis Surgical History Hx of appendectomy History of bilateral ligation of fallopian tubes Hx of colonoscopy History of esophagogastroduodenoscopy (EGD) Social History Household Members: None Housing: House Alcohol intake: current Alcohol intake frequency: holidays/special occasions only Patient Tobacco Use Status: Never used Tobacco service: No Current occupational status: unemployed Physical Exam Vital Signs: Last Vital Signs Pulse 67 12/17/24 09:45 BP 132/66 12/17/24 09:45 BMI result Body Mass Index 19.2 Assessment & Plan Assessment & Plan (1) Wheezing: Code(s): R06.2 - Wheezing Category: Medical Plan: as above (2) Malnutrition: Code(s): E46 - Unspecified protein-calorie malnutrition Category: Medical Plan: as above Orders: Orders Pancreatic Elastase-1 Today E46 - Unspecified protein-calorie malnutrition Referrals Pulmonology Referral E46 - Unspecified protein-calorie malnutrition, R06.2 - Wheezing Coding Level of Care Code Est Pt Level 3 (88082) Diagnoses Wheezing R06.2 Malnutrition E46
[2024-12-17 09:45] VITALS: BP 132/66; PULSE 67; BMI 19.2
== END 2024-12-17 10:10 | disposition home or self-care (01) ==
LOC: HO.HGI 09:39
PROVIDERS: PCP Internal Medicine; Visit Provider Internal Medicine Gastroenterology
DX: R06.2 Wheezing (principal); E46 Unspecified protein-calorie malnutrition
CPT/HCPCS: 99213

== ENCOUNTER → 2024-12-17 09:38 | Outpatient (BNVA) | payer MEDICARE, SELFPAY | PROVIDERS: PCP Internal Medicine; Visit Provider Internal Medicine Gastroenterology | DX: R06.2 Wheezing (principal); E46 Unspecified protein-calorie malnutrition; F12.90 Cannabis use, unspecified, uncomplicated | CPT/HCPCS: 99212 ==

== ENCOUNTER 2025-03-15 14:44 | Outpatient (AMB) | payer MEDICARE, SELFPAY ==
--- OUTSIDE RECORDS SUMMARY | 2025-03-15 09:00 | XMS_ITS | Encounter Summary ---
Author Organization [facility] Address [address] [place] [address] Phone Care Team Providers Care Superintendent Generating Plant Name Role Phone Chapin Lovell MD Primary Care Provider [phone] Chapin Lovell MD Unavailable Chapin Lovell MD Unavailable Reason for Visit * Reason Comments Pre-op Exam Skin Cancer Encounter Details Date Type Department Care Team (Late st Contact Info) Description 03/15/2025 9:00 AM EDT Follow-Up [facility] [address] [place] [address] Chapin Lovell MD 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 Not on wood e 10/14/2022 Are you concerned about learning? Not on file 10/14/2022 No 10/14/2022 No 10/14/2022 Digital Access Answer Date Recorded No 11/15/2022 No 11/15/2022 Reliable internet access at home? Not on file 11/15/2022 Device with a working camera? Not on file Comments No Sex and Gender Information Value Date Recorded Sex Assigned at Female 01/16/2020 2:23 PM EDT Legal Sex Female 7:46 PM EST Gender Identity Female 01/16/2020 2:23 PM EDT Sexual Orientation Choose not to disclose 2019 2:23 PM EDT documented as of this encounter Last Filed Vital Signs Vital Sign Reading Time Taken Comments Blood Pressure 128/68 03/15/2025 8:53 AM EDT Pulse 69 03/15/2025 8:53 AM EDT Temperature 36.5 C (97.7 F) 03/15/2025 8:53 AM EDT Respiratory Rate - - Oxygen Saturation 97% 03/15/2025 8:53 AM EDT Inhaled Oxygen Concentration - - Weight 41.4 kg (91 lb 3.2 oz) 03/15/2025 8:53 AM EDT Height - - Body Mass Index 18.66 11/14/2024 11:29 AM EDT documented in this encounter Progress Notes * Chapin Lovell MD - 03/15/2025 9:00 AM EDT CC?: pre-operative history and physical exam for medical clearance prior to undergoing an 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 ? HPI: 80 year-old woman with hearing loss, positional vertigo, osteoporosis, GERD, IBS, and mild hypothyroidism comes in for the above. She denies any chest pain, chest pressure, palpitations, near syncope, dyspnea, cough, fever, headache, dysuria, nausea, diarrhea, bruising or bleeding. Problems Temporomandibular joint disease Gastroesophageal reflux disease Irritable bowel syndrome H/O Sensorineural hearing loss : right ear Tinnitus Osteoporosis Mammography abnormal : microcalcification cluster seen in the right breast 12/03/2010; will need biopsy Hearing loss - right ear Hypothyroidism Elbow fracture ? Procedures S/P Extraction of cataract : got the right one extracted on 07/01/2016 and the left one on 11/25/2016 ?S/P YAG posterior capsulotomy of each eye in November 2023 Current Outpatient Medications on File Prior to Visit Medication Sig Dispense Refill Last Dispense fluocinonide 0.05 % external solution USE UP TO TWICE DAILY WITH A SHOWER CAP- RUB INTO SCALP. NOT MORE THAN TWO WEEKS PER MONTH. Unknown (patient-reported) ketoconazole (NIZORAL) 2 % shampoo Apply 1 Application topically 2 (two) times a week. Unknown (patient-reported) Medication-Free Text Take by mouth as needed. GAVASCONE Unknown (patient-reported) menthol (HALLS) lozenge Use as directed 1 lozenge in the mouth or throat every 2 (two) hours as needed for sore throat. Unknown (patient-reported) polyethylene glycol 3350 (MIRALAX ORAL) Take by mouth daily. For gastroparesis Unknown (patient-reported) salicylic acid 3 % Crea Apply topically. Unknown (patient-reported) [DISCONTINUED] cholecalciferol, vitamin D3, 50 mcg/drop (2, 000 unit/drop) Drop Take 1,000 Units bymouth every other day. (Patient not taking: Reported on 03/15/2025) Unknown (no pharmacy) [DISCONTINUED] ipratropium (ATROVENT) 21 mcg (0.03 %) nasal spray 2 sprays by Nasal route 2 (two) times a day as needed (vasomotor rhinitis). (Patient not taking: Reported on 03/15/2025) 30 mL 5 Unknown (outside pharmacy) No current facility-administered medications on file prior to visit. Allergies Allergen Reactions Alendronic Acid Other (See Comments) Esophagitis Fosamax [Alendronate] Family / Social History ?Family history is notable for heart disease (father age 72 and brother age 51), borderline diabetes, COPD, thyroid cancer, Parkinson's disease, and osteoporosis. She is with two adoptedchildren, a son and a daughter, both grown. Her son, an cash accountant in [place], developed a problem with alcohol and drugs and began stealing things. He was [place] [place] [facility] and will be labeled as a sex offender upon his release. 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 She smoked from age 19 to 22 but not sin ce. Limited alcohol intake. She attends [employer] and is involved in her cheondoism. ? Review of Systems Symptoms pertaining to the patient's general state of health, head, neck, heart, lungs, GI track, track, skin, nervous system, musculoskeletal system, endocrine system, hematologic system, immunologic system and mental health were reviewed. Apart from anything mentioned elsewhere in this note, these system reviews were otherwise negative. ? ?PE Vitals: 03/15/25 0853 BP: 128/68 Pulse: 69 Temp: 36.5 ??C (97.7 ??F) SpO2: 97% Body mass index is 18.66 kg/m??. Patient is a well-developed and well-nourished woman in no acute distress. Head is normocephalic and atraumatic. Pupils are equal and reactive to light and accommodation. Extraocular motions are intact. Scleras are anicteric. Ear canals have only scant amounts of cerumen and TM's appear normal. She has a 1 cm wide circular eschar on the right side of the bridge of her nose. Neck is supple, with no evidence of jugular venous pulsations or carotid bruits. No adenopathy. Thyroid is symmetric with no evidence of goiter, tenderness, bruit or palpable nodule. Chest is clear to auscultation with no evidence of crackles, wheeze, dullness or egophony. Heart has a regular rate with normal heart sounds and no evidence of murmur, rub or gallop. Abdomen is soft, with no tenderness, distension, palpable masses or organomegaly. Back shows no spine tenderness or tenderness at the costovertebral angles. She has scoliosis of the thoracic spine, convex to the right. Extremities have no clubbing, cyanosis, cords or edema. ?Peripheral pulses are palpable and symmetrical. Neurological exam shows that the patient is alert and oriented to person, place and time. Speech and gait appear normal, and apart from some hearing loss in her right ear, cranial nerves II- XI appear intact. ???A/P 1. Medically cleared for the proposed elective surgical resection of a squamous cell carcinoma of the face as well as for the subsequent reconstructive surgery and for any associated anesthesia/analgesia - low risk; ASA class 2. EKG done today,03/15/2025, shows normal sinus rhythm with a rate of 64beats per minute, a QRS axis of 58 degrees, and otherwise normal wave forms and intervals. Apart from a noisy baseline, the EKG has no significant changes from a prior done 08/11/2020. There is no indication for any further cardiac testing prior to undergoing surgery. 2. Subclinical hypothyroidism (TSH 5.12 in March 2024) - she is now followed by Dr. Joselyn Sterling at [facility]. She will continue to monitor levels every six months but would not opt totreat unless TSH gets up to 10. Check labs today. ? 3. IBS - currently asymptomatic. 4. 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 She is managing tolive with it at present. ? 5. ?Kyphosis and scoliosis - continue PT exercises. ? 6. Osteoporosis on DXA 12/08/2022 - discussed calcium, vitamin D, and weight- bearing exercise. She got esophagitis with Fosamax in the early and opted not to take any of the alternatives or oral bisphosphonates. She is now followed by a bone facepiece line supervisor, Dr. Márquez, at [facility]. ? 7. Colonoscopy - done by Dr. Bonilla 11/10/2014 showed no polyps. ?The U.S. Preventative Services Task Force recommends against routine colorectal cancer screening after age 75 and against any screening after age 85.? 8. Mammograms are done annually through [facility] with the most recent on 02/09/2024 showing no evidence of malignancy. ?She can continue to undergo routine screening mammography provided she would accept treatment for breast cancer and her health would permit such treatment.? ? 9. Vaccinations - flu shot recommended annually in the fall. Immunization History Administered Date(s) Administered COVID-19 (Pre-04/11) Moderna Vaccine, Bivalent 6mo+ 10/06/2022 COVID-19 (Pre-04/11) Moderna Vaccine, mRNA, PF 08/09/2020, 09/06/2020, 04/28/2021, 10/16/2021 COVID-19 Moderna Spikevax Vaccine 12+ 03/25/2023 COVID-19 Pfizer Comirnaty Vaccine 12+ 05/11/2024 INFLUENZA, SPLIT VIRUS, TRIVALENT W/ PRESERVATIVE IM 03/05/2014 Influenza High-Dose Quadrivalent Preservative Free IM 06/05/2022, 03/15/2023 Influenza High-Dose Trivalent Preservative Free IM 03/21/2015, 07/09/2017, 04/13/2018, 04/18/2019, 05/11/2024 Influenza Quadrivalent Adjuvanted Preservative Free IM 05/09/2021 Influenza Quadrivalent Preservative Free IM 04/01/2016 Influenza, Unspecified Formulation 02/25/2020 Pneumococcal conjugate PCV13 03/05/2014 Pneumococcal polysaccharide PPSV23 06/20/2008, 10/12/2018 Pneumococcal, Unspecified Formulation 06/20/2008 RSV Vaccine (monovalent, adjuvanted) 04/27/2023 Zoster recombinant 09/03/2018 10. Discussed diet, exercise, health and safety. Reviewed potential barriers to care. Patient feelswell-supported at home and has no concerns at this time.? Follow-up with me as scheduled, or soonerif needed. documented in this encounter Plan of Treatment Upcoming Encounters Date Type Department Care Team (Late st Contact Info) Description 05/31/2025 10:30 AM EST Office Visit [facility] [address] [place] [address] Chapin Lovell MD [address] [place] [address] [place] [id number] [email or web address] Scheduled Orders Name Type Priority Associated Diagnoses Orde r Schedule Comprehensive metabolic panel Lab Routine Elevated hemoglobin A1c Expected: 03/15/2025, Expires: 03/15/2026 TSH Lab Routine Subclinical hypothyroidism Expected: 03/15/2025, Expires: 03/15/2026 T4, Free Lab Routine Subclinical hypothyroidism Expected: 03/15/2025, Expires: 03/15/2026 CBC w/o Diff. 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 Subclinical hypothyroidism Other specified acquired hypothyroidism Age-related osteoporosis without current pathological fracture Postural kyphosis of cervicothoracic region Thoracogenic scoliosis of thoracic region Irritable bowel syndrome without diarrhea Elevated hemoglobin A1c Other abnormal blood chemistry documented in this encounter Additional Health Concerns Assessment Noted Time PHQ-9 Depression Total Score: 0 03/15/20 8:56 AM EDT PHQ-2 Depression Total Score: 0 03/15/20 8:56 AM EDT documented as of this encounter Care Teams Superintendent Generating [employer] Relationship Specialty Start Date End Date Chapin Lovell MD [address] [place], [place] [address] [place] [address] [email or web address] PCP - General Internal Medicine 12/10/13 Chapin Lovell MD [address] [place] [address] [place] [id number] [email or web address] Historical LMR Provider 12/04/16 Chapin Lovell MD [address] [place] [address] [place] [address] [email or web address] Insurance Assigned Provider 09/24/23 documented as of this encounter Additional Source Comments The information contained in this document represents components of the legal health record. It is not the complete legal health record.[facility]
[2025-03-15 14:51] VITALS: BP 144/72; PULSE 91; O2SAT 95
--- NOTE | 2025-03-15 14:51 | MHC.OFFVIS ---
Vital Signs 03/15/25 14:51 Height 4 ft 9 in Weight 92 lb 9.506 oz BMI 20.0 BP 144/72 H Blood Pressure Location Lt brachial Position Sitting Pulse 91 Pulse Source Pulse Oximeter Pulse Oximetry (%) 95 Oxygen Delivery Method Room Air Intake Visit Reasons: Wheezing Milk Driver Required: No Accompanied by: Self / Same As Patient Allergies alendronate sodium (From Fosamax) Allergy (Mild, Verified 03/15/25 14:54) unknown HPI Comments Details: The patient is here for pulmonary evaluation of an abnormal CT scan of the abdomen. The patient is an 80 year woman with a known history of gastroparesis in addition to weight loss and scoliosis. She has been evaluated closely for her abdominal issues with GI. She had a CAT scan of the abdomen back in 2021 and also a CAT scan of the abdomen back in 2022. During those episodes she noted that in the bases of the lungs it mentions some pulmonary scarring. The patient did become concerned because of the risks of the pulmonary fibrosis and what it meant. Therefore a pulmonary referral was placed. Overall the patient has been doing good. Denies any exposures to any fumes or toxins. She smoked briefly for short period of time but not significantly. She may have been exposed to asbestos in it all house but did not really manipulate the asbestos. The patient denies any hobbies in working with organic or inorganic dust. The only pets that she has had were dogs. So overall she is doing okay except for the scoliosis. Throughout her life she has gotten physical therapy for that. She has noticed it has gotten worse. I did personally review the CT scan of the abdomen the lung windows demonstrating the minimal scarring primarily left more than right. This is likely due to her significant scoliosis causes some degree of restriction of her lung expansion. She also did have a chest x-ray which I personally reviewed from 2021 which demonstrated the scoliosis pretty significant and no evidence of any airspace disease or parenchymal disease. We did give her an incentive spirometer she was able to bring up the incentive spirometer of up to 800 mL suggesting that indeed she is restricted from breathing standpoint. Will have her undergo pulmonary function studies and will go ahead and repeat the chest x-ray. If her x-ray is abnormal will consider a CT scan of the chest. Is going to work on breathing techniques and breathing exercises as well as physical therapy for her back. The patient will follow-up in several months after she undergoes a repeat chest x-ray and PFTs. If she has any issues prior to this she can always call for further recommendations. [facility], [facility] Medical History (Updated 03/17/25 @ 21:21 by Jerry Delacruz MD) Pulmonary scarring Atelectasis Chronic restrictive lung disease Scoliosis Hearing deficit IBS (irritable bowel syndrome) GERD (gastroesophageal reflux disease) Osteoporosis Surgical History Hx of appendectomy History of bilateral ligation of fallopian tubes Hx of colonoscopy History of esophagogastroduodenoscopy (EGD) Social History Household Members: None Housing: House Alcohol intake: current Alcohol intake frequency: holidays/special occasions only Patient Tobacco Use Status: Never used Tobacco service: No Current occupational status: unemployed Review of Systems Const Denies weight gain and Denies weight loss ENT Reports no additional complaints Card Reports no additional complaints Resp Reports no additional complaints GI Reports abdominal pain (LLQ) Reports no additional complaints Musc Reports no additional complaints Skin/Breast Denies rash Neuro Reports no additional complaints Psych Reports no additional complaints Endo Reports no additional complaints Physical Exam Vital Signs: Last Vital Signs Pulse 91 03/15/25 14:51 BP 144/72 H 03/15/25 14:51 Pulse Ox 95 03/15/25 14:51 Oxygen Delivery Method Room Air 03/15/25 14:51 BMI result Body Mass Index 20.0 Const General: healthy appearing and no acute distress Orientation/consciousness: patient oriented x3 HEENT Head: Yes normal to inspection and Yes normocephalic Face and sinus: Yes normal facial exam Mouth: Normal oral and palatal mucosa present Throat: Yes posterior oropharynx normal, Yes tonsils normal and Yes uvula midline Eyes General: appearance normal, both eyes and all related structures Neck Neck: Yes supple Thyroid: Thyroid normal Chest Chest palpation & inspection: abnormal inspection of the chest scoliotic Resp Effort & Inspection: normal respiratory effort, able to speak in complete sentences, no tracheal deviation and symmetric chest movement Auscultation: diminished lung sounds Cardio Rate: regular rate Heart sounds: S1 normal heart sound present, S2 normal heart sound present, no gallops and no murmurs GI Palpation (GI): Soft to palpation, not firm and nontender Auscultation: normal bowel sounds Back/Spine/Pelvis Thoracic/Lumbar Spine: Thoracic/lumbar scoliosis Skin General skin exam: no rashes or lesions noted Neuro General: patient oriented x3 Extrem General: Yes no clubbing, cyanosis or edema Psych Appearance: grossly normal Mental Status: mental status grossly normal Speech and movement: Normal speech and movement present Affect: Anxious affect present Attitude: cooperative Thought process: Normal thought process present Thought content: Normal thought content present Insight: Good insight present (Psych) Judgement: Good judgement present (Psych) Assessment & Plan Assessment & Plan (1) Scoliosis: Code(s): M41.9 - Scoliosis, unspecified Category: Medical Qualifiers: Scoliosis type: unspecified scoliosis Spinal region: unspecified Qualified Code(s): M41.9 - Scoliosis, unspecified (2) Chronic restrictive lung disease: Code(s): J98.4 - Other disorders of lung Category: Medical (3) Atelectasis: Code(s): J98.11 - Atelectasis Category: Medical (4) Pulmonary scarring: Code(s): J98.4 - Other disorders of lung Category: Medical Plan ISS Deep breathing exercises PFTs CXR F/U 3 months Orders: Orders PFT pulmonary function test Today M41.9 - Scoliosis, unspecified XR chest 2V Today M41.9 - Scoliosis, unspecified Coding Level of Care Code New Pt Level 4 (73258) Diagnoses Scoliosis, unspecified scoliosis type, unspecified spinal region M41.9 Scoliosis type: unspecified scoliosis Spinal region: unspecified Chronic restrictive lung disease J98.4 Atelectasis J98.11 Pulmonary scarring J98.4 Time Spent (min) 36
--- OUTSIDE RECORDS SUMMARY | 2025-03-15 15:34 | XMS_ITS | Encounter Summary ---
Author Organization [facility] Address [address] [place] [address] Phone Care Team Providers Care Notereader Name Role Phone Chapin Lovell MD Primary Care Provider [phone] Chapin Lovell MD Unavailable Chapin Lovell MD Unavailable Encounter Details Date Type Department Care Team (Late st Contact Info) Description 04/11/2020 Ancillary Orders [facility] [address] [place], [place] [id number] Chapin Lovell MD [address] [address] [email or web address] Visit for screening mammogram Social History Tobacco Use Types Packs/Day Years Used Date Smoking Tobacco: Never Smokeless Tobacco: Never Alcohol Use Standard Drinks/Week Comments Not Currently 0 (1 standard drink = 0.6 oz pur e alcohol) rare Comments No Sex and Gender Information Value Date Recorded Sex Assigned at Female 01/16/2020 2:23 PM EDT Legal Sex Female 7:46 PM EST Gender Identity Female 01/16/2020 2:23 PM EDT Sexual Orientation Choose not to disclose 2019 2:23 PM EDT documented as of this encounter Plan of Treatment Upcoming Encounters Date Type Department Care Team (Late st Contact Info) Description 05/31/2025 10:30 AM EST Office Visit [facility] [address] [facility] 3 [place] [address] Chapin Lovell MD [address] [facility]. Anil. 3 [place] [address] [email or web address] documented as of this encounter Results * BI MAMMOGRAM SCREENING WITH TOMOSYNTHESIS WITH CAD (BILATERAL) (01/13/2021 2:10 PM EDT) Anatomical Region Laterality Modality Breast Left, Breast Right, Breast Bilateral Bila teral Mammography 01/13/2021 4:48 PM EDT Impressions 01/13/2021 4:49 PM EDT Negative, no mammographic evidence of malignancy. Routine screening mammography is recommended in one year. OVERALL Assessment: BI-RADS 1 Negative. The patient was sent a letter with the results of the exam and follow-up recommendation. The recommendation above has been entered into a reminder system to monitor and facilitate patient compliance. Narrative 01/13/2021 4:49 PM EDT BI MAMMOGRAM SCREENING WITH TOMOSYNTHESIS WITH CAD (BILATERAL): Reason for exam: Screening. No new breast complaints. TECHNIQUE: Digital Mammography and tomosynthesis were used to obtain images. Computer Aided Detection was used to aid in interpretation COMPARISON: Comparison is made with relevant prior imaging in PACS. BREAST DENSITY: The breast tissue is diffusely dense, an appearance which could obscure a lesion on mammography. FINDINGS: There are no suspicious masses, calcifications, or other abnormalities noted. Biopsy clip in the right breast represents prior benign biopsy. Procedure Note Mak Reed MD - 01/13/2021 BI MAMMOGRAM SCREENING WITH TOMOSYNTHESIS WITH CAD (BILATERAL): Reason for exam: Screening. No new breast complaints. TECHNIQUE: Digital Mammography and tomosynthesis were used to obtain images. ComputerAided Detection was used to aid in interpretation COMPARISON: Comparison is made with relevant prior imaging in PACS. BREAST DENSITY: The breast tissue is diffusely dense, an appearance whichcould obscure a lesion on mammography. FINDINGS: There are no suspicious masses, calcifications, or otherabnormalities noted. Biopsy clip in the right breast represents priorbenign biopsy. IMPRESSION: Negative, no mammographic evidence of malignancy. Routine screening mammography is recommended in one year. OVERALL Assessment: BI-RADS 1 Negative. The patient was sent a letter with the results of the exam and follow-uprecommendation. The recommendation above has been entered into a remindersystem to monitor and facilitate patient compliance. us Chapin Lovell MD IMG MG EXAMS Final Res ult documented in this encounter Visit Diagnoses Diagnosis Visit for screening mammogram Visit for screening mammogram documented in this encounter Additional Health Concerns Assessment Noted Time PHQ-2 Depression Total Score: 2 10/17/19 20 3:03 PM EDT documented as of this encounter Care Teams Notereader Relationship Specialty Start Date End Date Chapin Lovell MD [address] [place] [address] [email or web address] PCP - General Internal Medicine 12/10/13 Chapin Lovell MD [address] [place] [address] [email or web address] Historical LMR Provider 12/04/16 Chapin Lovell MD [address] [place] [address] [email or web address] Insurance Assigned Provider 09/24/23 documented as of this encounter Additional Source Comments The information contained in this document represents components of the legal health record. It is not the complete legal health record.[facility]
--- OUTSIDE RECORDS SUMMARY | 2025-03-15 15:34 | XMS_ITS | Encounter Summary ---
Author Organization [facility] Address [address] [place] [address] Phone Care Team Providers Care Hogshead Mat Inspector Name Role Phone Chapin Lovell MD Primary Care Provider [phone] Chapin Lovell MD Unavailable [phone] Chapin Lovell MD Unavailable [phone] Encounter Details Date Type Department Care Team (Late st Contact Info) Description 07/21/2017 Ancillary Orders [facility] [address] [place] [address] Chapin Lovell MD [address] [place] [address]. [address] [place] [address] [email or web address] Breast screening Social History Tobacco Use Types Packs/Day Years Used Date Smoking Tobacco: Never Smokeless Tobacco: Never Comments No Sex and Gender Information Value [...] Description 05/31/2025 10:30 AM EST Office Visit [facility] [address] [place] [address] Chapin Lovell MD [address] [address] [email or web address] documented as of this encounter Results * BI MAMMOGRAM SCREENING WITH TOMOSYNTHESIS WITH CAD (BILATERAL) (04/10/2018 2:09 PM EDT) Anatomical Region Laterality Modality Breast Left, Breast Right, Breast Bilateral Bila teral Mammography Impressions 04/10/2018 3:25 PM EDT No evidence of malignancy. No significant change from prior examinations. Routine annual screening is recommended. Routine screening mammography is recommended in one year. OVERALL Assessment: BI-RADS 1 Negative. The recommendation above has been entered into a reminder system to monitor and facilitate patient compliance. Narrative 04/10/2018 3:25 PM EDT BI MAMMOGRAM SCREENING WITH TOMOSYNTHESIS WITH CAD (BILATERAL) INDICATION: The patient presents for annual mammography. Comparison: 12/13/2012 through 12/23/2016. Views: Routine mammography was performed. Examination was performed with digital mammography as well as tomosynthesis, and interpreted with computer aided detection. FINDINGS: The breast tissue is heterogeneously dense, an appearance which lowers the sensitivity of mammography. There are no suspicious masses, suspicious calcifications, areas of architectural distortion, or other signs of malignancy. Procedure Note Mervin Harden MD - 04/10/2018 BI MAMMOGRAM SCREENING WITH TOMOSYNTHESIS WITH CAD (BILATERAL) INDICATION: The patient presents for annual mammography. Comparison: 12/13/2012 through 12/23/2016. Views: Routine mammography was performed. Examination was performed withdigital mammography as well as tomosynthesis, and interpreted withcomputer aided detection. FINDINGS: The breast tissue is heterogeneously dense, an appearance whichlowers the sensitivity of mammography. There are no suspicious masses,suspicious calcifications, areas of architectural distortion, or othersigns of malignancy. IMPRESSION: No evidence of malignancy. No significant change from prior examinations.Routine annual screening is recommended. Routine screening mammography isrecommended in one year. OVERALL Assessment: BI-RADS 1 Negative. The recommendation above has been entered into a reminder system tomonitor and facilitate patient compliance. us Chapin Lovell MD IMG MG EXAMS Final Res ult documented in this encounter Visit Diagnoses Diagnosis Breast screening Breast screening, unspecified Breast screening Breast screening, unspecified documented in this encounter Additional Health Concerns Assessment Noted Time PHQ-2 Depression Total Score: 0 03/17/20 2:17 PM EDT documented as of this encounter Care Teams Hogshead Mat Inspector Relationship Specialty Start Date End Date Chapin Lovell MD [address] [place] [address] [place] [address] [email or web address] PCP - General Internal Medicine 12/10/13 Chapin Lovell MD [address] [place] [address] [place] [address] [email or web address] Historical LMR Provider 12/04/16 Chapin Lovell MD [address] [place] [address] [email or web address] Insurance Assigned Provider 09/24/23 documented as of this encounter Additional Source Comments The information contained in this document represents components of the legal health record. It is not the complete legal health record.[facility]
--- OUTSIDE RECORDS SUMMARY | 2025-03-15 15:34 | XMS_ITS | Encounter Summary ---
Author Organization [facility] Address [address] [place] [address] Phone Care Team Providers Care Card Hanger Name Role Phone Chapin Lovell MD Primary Care Provider [phone] Chapin Lovell MD Unavailable [phone] Chapin Lovell MD Unavailable Encounter Details Date Type Department Care Team (Late st Contact Info) Description 01/07/2022 Ancillary Orders [employer] [facility] [place] [id number] [facility] 3 [place] [address] Chapin Lovell MD [address] [place] [address] [address]. 3 [place] [address] [email or web address] Social History Tobacco Use Types Packs/Day Years [...] Encounters Date Type Department Care Team (Late Contact Info) Description 05/31/2025 10:30 AM EST Office Visit [facility] [address] [facility] [address] [place] [address] Chapin Lovell MD 3 [address] [place] [address] [email or web address] documented as of this encounter Visit Diagnoses Not on filedocumented in this encounter Additional Health Concerns Assessment Noted Time PHQ-2 Depression Total Score: 2 03/13/20 21 7:25 PM EDT documented as of this encounter Care Teams Card Hanger Relationship Specialty Start Date End Date Chapin Lovell MD [address] [place] [address] [place] [address] [email or web address] PCP - General Internal Medicine 12/10/13 Chapin Lovell MD [address] [place] [address] [place] [address] [email or web address] Historical LMR Provider 12/04/16 Chapin Lovell MD [address] [place] [address] [place] [address] [email or web address] Insurance Assigned Provider 09/24/23 documented as of this encounter Additional Source Comments The information contained in this document represents components of the legal health record. It is not the complete legal health record.[facility]
--- OUTSIDE RECORDS SUMMARY | 2025-03-15 15:34 | XMS_ITS | Encounter Summary ---
Author Organization [facility] Address [address] [facility] [address] [place] [address] Phone Care Team Providers Care Parking Analyst Name Role Phone Chapin Lovell MD Primary Care Provider [phone] Chapin Lovell MD Unavailable [phone] Chapin Lovell MD Unavailable [phone] Encounter Details Date Type Department Care Team (Late st Contact Info) Description 11/18/2015 Prep for Surgery [address] [address] Luis Lopez MD [address] [place] [address] [email or web address] Social History Tobacco Use Types Packs/Day Years Used Date Smoking Tobacco: Never Comments Unknown Sex and Gender Information Value Date Recorded [...] Description 05/31/2025 10:30 AM EST Office Visit [facility] [address] [facility] 3 [place] [address] Chapin Lovell MD 8[address] [facility] 3 [place] [address] [email or web address] [email or web address] documented as of this encounter Visit Diagnoses Not on filedocumented in this encounter Care Teams Parking Analyst Relationship Specialty Start Date End Date Chapin Lovell MD [address] [place] [address] [place] [address] [email or web address] PCP - General Internal Medicine 12/10/13 Chapin Lovell MD [address] [place], [place] [address] [address] [email or web address] Historical LMR Provider 12/04/16 Chapin Lovell MD [address] [place] [address] [place] [address] [email or web address] Insurance Assigned Provider 09/24/23 documented as of this encounter Additional Source Comments The information contained in this document represents components of the legal health record. It is not the complete legal health record.[facility]
--- OUTSIDE RECORDS SUMMARY | 2025-03-15 15:34 | XMS_ITS | Encounter Summary ---
Author Organization [facility] Address [address] [address] [place] [address] Phone Care Team Providers Care Biscuitware Brusher Name Role Phone Chapin Lovell MD Primary Care Provider [phone] Chapin Lovell MD Unavailable Chapin Lovell MD Unavailable Encounter Details Date Type Department Care Team (Late st Contact Info) Description 07/02/2019 Ancillary Orders [facility] [address] [place], [place] [id number] Chapin Lovell MD [address] [address] [email or web address] Visit for screening mammogram Social History Tobacco Use Types Packs/Day Years Used Date Smoking Tobacco: Never Smokeless Tobacco: Never Alcohol Use Standard Drinks/Week Comments Yes 0 (1 standard drink = 0.6 oz [...] Description 05/31/2025 10:30 AM EST Office Visit [facility] [address] [facility] 3 [place] [address] Chapin Lovell MD 3 [facility]. 3 [place] [address] [email or web address] documented as of this encounter Visit Diagnoses Diagnosis Visit for screening mammogram documented in this encounter Additional Health Concerns Assessment Noted Time PHQ-2 Depression Total Score: 0 11/02/19 19 2:39 PM EDT documented as of this encounter Care Teams Biscuitware Brusher Relationship Specialty Start Date End Date Chapin Lovell MD [address] [place] [address] 3 [place] [address] [email or web address] PCP - General Internal Medicine 12/10/13 Chapin Lovell MD [address] [place] [address] [place] [address] [email or web address] Historical LMR Provider 12/04/16 Chapin Lovell MD [address] [place] [address] [place] [address] [email or web address] Insurance Assigned Provider 09/24/23 documented as of this encounter Additional Source Comments The information contained in this document represents components of the legal health record. It is not the complete legal health record.[facility]
--- OUTSIDE RECORDS SUMMARY | 2025-03-15 15:34 | XMS_ITS | Clinical Summary ---
Author Organization [facility] Address [address] [place] [address] Phone Care Team Providers Care Molder Labels Name Role Phone Chapin Lovell MD Primary Care Provider [phone] Chapin Lovell MD Unavailable Chapin Lovell MD Unavailable [phone] Allergies Active Allergy Reactions Criticality Noted Date Comments Alendronic Acid Other (See Comments) 07/22/2009 Esophagitis Alendronate 12/06/2017 Medications Medication-Fr ee Text Take by mouth as needed. GAVASCONE Active polyethylene glycol 3350 (MIRALAX ORAL) Take by mouth daily. For gastroparesis Active ketoconazole (NIZORAL) 2 % shampoo Apply 1 Application topically 2 (two) times a week. 04/12/20 24 Active menthol (HALLS) lozenge Use as directed 1 lozenge in the mouth or throat every 2 (two) hours as needed for sore throat. Active fluocinonide 0.05 % external solution USE UP TO TWICE DAILY WITH A SHOWER CAP-RUB INTO SCALP. NOT MORE THAN TWO WEEKS PER MONTH. 08/12/19 25 Active salicylic acid 3 % Crea Apply topically. Active cholecalcifer ol, vitamin D3, 50 mcg/drop (2, 000 unit/drop) Drop Take 1,000 Units by mouth every other day. 11/15/19 25 025 Discontinued ipratropium (ATROVENT) 21 mcg (0.03 %) nasal sprayIndicati ons:Vasomotor rhinitis 2 sprays by Nasal route 2 (two) times a day as needed (vasomotor rhinitis). 30 mL 5 11/17/19 25 025 Discontinued Active Problems Problem Noted Date Diagnosed Date Squamous cell cancer of skin of nose 03/15/2025 Vasomotor rhinitis 11/14/2024 Bilateral posterior capsular opacification 11/07 Gastroparesis 11/08/2023 Slow transit constipation 11/08/2023 Insect bite of neck 10/21/2023 Assessment & Plan (10/21/2023 1:57 PM EDT): Her daughter sent me a picture They look to be most consistent with an insect bite I would recommend using topical cortisone twice/day for 1-2 weeks If she starts to have more spots elsewhere on her body, come in to be checked If symptoms not managed with cream, come in to be checked F/u as needed COVID 07/19/2022 Assessment & Plan (07/19/2022 1:23 PM EST): Discussed that she should no longer be symptomatic Symptoms have essentially disappeared, and she is not immunocompromised / on immunosuppressants, so despite continuing to test positive, she should no longer be contagious She could be on the safe side and wear masks when indoors, will also help to prevent getting other viral respiratory illnesses that are going around right now as well F/u as needed Protein-calorie malnutrition, unspecified severi ty 05/04/2022 Assessment & Plan (07/19/2022 1:21 PM EST): Continue speaking with GI and has another appt with [employer] admin coming up Discussed that I'm not as concerned with prediabetes as I am about the weight loss. Can still have potatoes, etc. Agree with salmon and nuts. Could start doing smoothies and adding in nut butters and/or protein powder there, and yogurt/milk in the smoothies Hold off PPI as much as possible, but if she needs a dose twice a week, OK for now. Agree with seeing GI again. 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 2018 Non-recurrent acute serous otitis media of both ears 11/01/2018 Impacted cerumen of left ear 11/01/2018 Cystitis 10/12/2018 Paresthesia of right foot 10/12/2018 Hearing loss 02/01/2011 Overview (03/17/2017): Hearing loss - right ear Subclinical hypothyroidism 02/01/2011 Overview (03/17/2017): Hypothyroidism Tinnitus 04/23/2010 Overview (03/17/2017): Tinnitus Osteoporosis 04/23/2010 Overview (03/17/2017): Osteoporosis 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 Overview (03/17/2017): Temperomandibular joint disease Gastroesophageal reflux disease 12/02/2004 Overview (03/17/2017): Gastroesophageal reflux disease Irritable bowel syndrome 12/02/2004 Overview (03/17/2017): Irritable bowel syndrome Resolved Problems Problem Noted Date Diagnosed Date Resolved Date Elbow fracture 05/29/2012 04/13/2018 Overview (03/17/2017): Elbow fracture Abnormal mammogram 12/04/2010 Overview (08/10/2014): Mammography abnormal; microcalcification cluster seen in the right breast 12/03/2010; will need biopsy Uncoded H/O Sensorineural hearing loss 04/23/2010 03/17/2017 Overview (08/10/2014): H/O Sensorineural hearing loss; right ear Encounters Date Type Department Care Team Description 03/15/2025 9:00 AM EDT Follow-Up [place] [id number] [address] Chapin Lovell MD Pre-operative examination (Primary Dx); Squamous cell cancer of skin of nose; Subclinical hypothyroidism; Age-related osteoporosis without current pathological fracture; Postural kyphosis of cervicothoracic region; Thoracogenic scoliosis of thoracic region; Irritable bowel syndrome without diarrhea; Elevated hemoglobin A1c 03/15/2025 Orders Only [address] [address] Marla Cavazos [place] Pre-operative examination; Subclinical hypothyroidism; Elevated hemoglobin A1c 02/06/2025 4:15 PM EDT Telemedicine - audio only [address] [address] Chapin Lovell MD Wound infection after surgery (Primary Dx) 02/06/2025 Orders Only [address] [address] ProviderJh MD 01/29/2025 8:09 PM EDT - 01/29/2025 11:59 PM EDT Hospital Encounter [facility] [address] [place] [address] Discharge Disposition: Home or Self Care from Last 3 Months Immunizations Immunization Administration Dates Next Due COVID-19 (Pre-04/11) Moderna Vaccine, mRNA, PF 09/06/2020,08/09/2020 COVID-19 Pfizer Comirnaty Vaccine 12+ 05/11/2024 INFLUENZA, SPLIT VIRUS, TRIV ALENT W/ PRESERVATIVE IM 03/05/2014 Influenza High-Dose Quadriva lent Preservative Free IM 03/15/2023,06/05/2022 Influenza High-Dose Trivalen t Preservative Free IM 05/11/2024,04/18/2019,04/13/2018,07/09,03/21/2015 Influenza Quadrivalent Adjuv anted Preservative Free IM 05/09/2021 Influenza Quadrivalent Prese rvative Free IM 04/01/2016 Influenza, Unspecified Formulation 02/24,03/27/2013(Deferred: Patient Decision - , Ordered By: [id number]),04/16/2011(Deferred: Patient Decision) Pneumococcal conjugate PCV13 03/05/2014 Pneumococcal polysaccharide PPSV23 10/12/2018, Pneumococcal, Unspecified Formulation 06/20/2008 RSV Vaccine (monovalent, adjuvanted) 04/27/2023 Zoster recombinant 09/03/2018 Family History Medical History Relation Comments Cataracts Brother Heart attack Brother Heart disease Brother Diabetes insipidus Father Heart attack Father Cataracts Sister had complication s from it. Thyroid cancer Sister Relation Status Comments Brother Father Sister Social History Tobacco Use Types Packs/Day Years Used Date Smoking Tobacco: Never Smokeless Tobacco: Never Alcohol Use Standard Drinks/Week Comments Not Currently 0 (1 standard drink = 0.6 oz pur e alcohol) rare Education Answer Date Recorded Are you interested in more education? Not on owod e 10/14/2022 Are you concerned about learning? [...] not to disclose 2019 2:23 PM EDT Last Filed Vital Signs Vital Sign Reading Time Taken Comments Blood Pressure 128/68 03/15/2025 8:53 AM EDT Pulse 69 03/15/2025 8:53 AM EDT Temperature 36.5 C (97.7 F) 03/15/2025 8:53 AM EDT Respiratory Rate 14 05/04/2022 9:49 AM EST Oxygen Saturation 97% 03/15/2025 8:53 AM EDT Inhaled Oxygen Concentration - - Weight 41.4 kg (91 lb 3.2 oz) 03/15/2025 8:53 AM EDT Height 148.9 cm (4' 10.62 ) 11/14/2024 11:29 AM EDT Body Mass Index 18.66 11/14/2024 11:29 AM EDT Plan of Treatment Upcoming Encounters Date Type Department Care Team (Late st Contact Info) Description 05/31/2025 10:30 AM EST Office Visit [facility] [address] [place] [address] Chapin Lovell MD [address] [place] [address] [email or web address] Health Maintenance Due Date Last Done Comments INFLUENZA VACCINE (#1) 2025 , 03/15/2023, 03/15/2023, Additional history exists COVID-19 VACCINE ( season) 2025 05/11/2024, 03/25/2023, 10/06/2022, Additional history exists DEPRESSION SCREENING 03/15/2026 03/15/2025, 03/15/20 25 Adult Td,Tdap Booster 04/18/2029 Postpo roshni from 1945 (Patient Declines / Guardian Declines) ZOSTER VACCINES (2 of 2) 04/18/2029 09/03/2018 Pos tponed from 10/29/2018 (Patient Declines / Guardian Declines) PNEUMOCOCCAL VACCINES (50+ years) Completed 10/12/2018, 03/05/2014, 06/20/2008 RSV VACCINE Completed 04/27/2023 OSTEOPOROSIS SCREENING INITIAL (ONE-TIME) Completed 11/14/2024, 12/08/2022, 12/08/2022, Additional history exists HEPATITIS A VACCINES Aged Out No long er eligible based on patient's age to complete this topic HIB VACCINES Aged Out No longer eligi ble based on patient's age to complete this topic MENINGOCOCCAL VACCINES (ACWY) Aged Out No longer eligible based on patient's age to complete this topic MENINGOCOCCAL VACCINES (B) Aged Out N o longer eligible based on patient's age to complete this topic Medical Devices Not on file Procedures Procedure Name Priority Date/Time Associated Diagnosis Comments OUTSIDE ECG Routine 03/15/2025 10:07 AM EDT DERMATOPATHOLOGY Routine 01/29/2025 12:0 0 AM EDT BD DXA SCREENING Routine 11/14/2024 12:3 0 PM EDT Other osteoporosis without current pathological fracture from Last 3 Months or Most Recently Relevant to Health Maintenance Results * Outside ECG Report Only (03/15/2025 10:07 AM EDT) us Historical Provider ECG ORDERABLES Final Res ult * Dermatopathology (01/29/2025 12:00 AM EDT) 01/29/2025 01/29/2025 Narrative SEE NARRATIVE - 02/04/2025 2:22 [place] [address] Tel. [phone] [email or web address] Salbador Duque MD, Shipmaster DERMATOPATHOLOGY REPORT PATIENT: ELEONORA EDWARDS PATIENT ID: Not Provided : 1945 SPECIMEN NUMBER: [id number] PHYSICIAN: Zenaida Fairbanks MD, PHD AGE: 80 SEX: F PHONE: [phone] DATE OF PROCEDURE: 01/29/2025 DATE OF DATE REPORTED: 02/04/2025 14:22 LOCATION: [address] [place] [address], [address] [place] [address] PRACTICE: Zenaida Fairbanks MD ([facility]) CLINICAL HISTORY A, B. R/O BCC C. R/O HAK FINAL PATHOLOGIC DIAGNOSIS A. SHAVE BIOPSY, R NASAL BRIDGE: SQUAMOUS CELL CARCINOMA, MODERATELY DIFFERENTIATED; EXTENDING TO THE PERIPHERAL AND DEEP TISSUE EDGES. B. SHAVE BIOPSY, L ALA CREASE: 1. ACTINIC KERATOSIS; EXTENDING TO THE PERIPHERAL TISSUE EDGE. 2. TINEA FACIALE. C. SHAVE BIOPSY, R FOOT: BASAL CELL CARCINOMA, SUPERFICIAL AND NODULAR TYPES; EXTENDING TO THE DEEP TISSUE EDGE. GROSS DESCRIPTION Received in three formalin containers A, B, C labeled with the patient's name and date of which is verified against the requisition. A. Labeled A is a friable flat skin specimen measuring 0.6 x 0.4 x 0.1 cm. The surface of the specimen is completely covered by a variegated brown-daily lesion. The surgical margins are inked blue; the specimen is bisected and submitted in a cassette labeled A1. B. Labeled B is a flat skin specimen measuring 0.4 x 0.2 x 0.1 cm. The surface of the specimen is completely covered by a variegated brown-daily lesion. The surgical margins are inked green; the specimen is submitted in toto in a cassette labeled B1. C. Labeled C is a flat skin specimen measuring 0.4 x 0.3 x 0.1 cm. The surgical margins are inked roger; the specimen is submitted in toto in a cassette labeled C1. Tissue shrinks when placed in fixative. Therefore, the original sample size may be larger than noted above. Jonatan Gould MD, PhD (Electronic Signature) 02/04/2025 14:22 us KenanMaribell Fairbanks MD PATHOLOGY ORDERABLES Fin al Result SEE NARRATIVE * DXA Spine and Hip (12/08/2022 11:19 AM EDT) Anatomical Region Laterality Modality Bone Density Bone Density 12/08/2022 11:1 9 AM EDT Narrative 12/08/2022 11:19 AM EDT History: Osteoporosis Technique: BONE DENSITOMETRY: Scans of the lumbar spine and left hip were performed on a [employer] SL unit. W.H.O. Classification is based on the lowest measured density at the spine, femoral neck, or total hip. T score between -1.0 and -2.5 classified as osteopenia, and below -2.5 classified as osteoporosis. This classification has prognostic significance with respect to postmenopausal women and older men. Findings: Bone mineral density measurements and associated T and Z scores, respectively are as follows: Lumbar spine: L1-L4 BMD: 0.507 g/cm2 T-Score: -4.9 Z-Score: -2.3 11 percent decrease since prior of 2019. Dissimilar scan types Left femoral neck: BMD: 0.374 g/cm2 T-Score: -4.3 Z-Score: -2.0 14.9 percent increase since prior study. Dissimilar scan types Left hip total: BMD: 0.481 g/cm2 T-Score: -3.8 Z-Score: -1.8 3.4 percent decrease since prior. Dissimilar scan types Lowest measured bone density places the patient in the W.H.O osteoporotic range. Impression: Osteoporosis Electronically signed by: Joie Sanders MD Dictated: 12/08/2022 11:19Transcribed by: Procedure Note Cheryl Sanders MD - 12/08/2022 History: Osteoporosis Technique: BONE DENSITOMETRY: Scans of the lumbar spine and left hip were performed on a [employer] SL unit. W.H.O. Classification is based on the lowest measured density at the spine, femoral neck, or total hip. T score between -1.0 and -2.5 classified as osteopenia, and below -2.5 classified as osteoporosis. This classification has prognostic significance with respect to postmenopausal women and older men. Findings: Bone mineral density measurements and associated T and Z scores, respectively are as follows: Lumbar spine: L1-L4 BMD: 0.507 g/cm2 T-Score: -4.9 Z-Score: -2.3 11 percent decrease since prior of 2018. Dissimilar scan types Left femoral neck: BMD: 0.374 g/cm2 T-Score: -4.3 Z-Score: -2.0 14.9 percent increase since prior study. Dissimilar scan types Left hip total: BMD: 0.481 g/cm2 T-Score: -3.8 Z-Score: -1.8 3.4 percent decrease since prior. Dissimilar scan types Lowest measured bone density places the patient in the W.H.O osteoporotic range. Impression: Osteoporosis Electronically signed by: Joie Sanders MD Dictated: 12/08/2022 11:19Transcribed by: Chapin Lovell MD [facility] BD BONE DENSITY DEXA Final Result from Last 3 Months or Most Recently Relevant to Health Maintenance Insurance MEDICARE PART A & B [employer] SUPPLEMENT MEDICARE PART A & B [employer] MEDEX SUPPLEMENT MEDICARE PART A & B [employer] MEDEX SUPPLEMENT MEDICARE PART A & B [employer]UE [employer] MEDEX SUPPLEMENT MEDICARE PART A & B Member Subscriber Plan / Payer (Ef fective 2008-Present) Name:Eleonora Edwards Member ID:[id number] Relation to Subscriber:Self Name:Eleonora Edwards Subscriber ID:[id number] Payer ID:[id number] Group ID:Not on file Type:Medicare Address: [employer] [address] [address] [facility] MEDEX SUPPLEMENT MEDICARE PART A & B [employer] MEDEX SUPPLEMENT MEDICARE PART A & B [employer] MEDEX SUPPLEMENT MEDICARE PART A & B [employer] MEDEX SUPPLEMENT MEDICARE PART A & B [employer] MEDEX SUPPLEMENT MEDICARE PART A & B [employer] MEDEX SUPPLEMENT MEDICARE PART A & B [employer] MEDEX SUPPLEMENT Care Teams Molder Labels Relationship Specialty Start Date End Date Chapin Lovell MD [address] [place] [address] [place] [address] [email or web address] PCP - General Internal Medicine 12/10/13 Chapin Lovell MD [address] [place] [address] [place] [address] [email or web address] Historical LMR Provider 12/04/16 Chapin Lovell MD [address] [place] [address] [place] [address] [email or web address] Insurance Assigned Provider 09/24/23 Additional Source Comments The information contained in this document represents components of the legal health record. It is not the complete legal health record.[facility]
--- OUTSIDE RECORDS SUMMARY | 2025-03-15 15:34 | XMS_ITS | Encounter Summary ---
Author Organization [facility] Address [address] [place] [address] Phone Care Team Providers Care Reconciliation Coordinator Name Role Phone Chapin Lovell MD Primary Care Provider [phone] Chapin Lovell MD Unavailable Chapin Lovell MD Unavailable [phone] Encounter Details Date Type Department Care Team (Late st Contact Info) Description 09/21/2018 Ancillary Orders [facility] [address] [facility] [address] [place] [address] Chapin Lovell MD [address] [facility] [address] [place] [address] [email or web address] Screening mammogram, encounter for Social History Tobacco Use Types Packs/Day Years [...] Description 05/31/2025 10:30 AM EST Office Visit [facility] [address] [place] [address] Chapin Lovell MD [address] [place] [address] [email or web address] documented as of this encounter Results * BI MAMMOGRAM SCREENING WITH TOMOSYNTHESIS WITH CAD (BILATERAL) (04/13/2019 1:16 PM EDT) Anatomical Region Laterality Modality Breast Left, Breast Right, Breast Bilateral Bila teral Mammography 04/13/2019 1:58 PM EDT Impressions 04/13/2019 1:59 PM EDT No evidence of malignancy. No significant change from prior examinations. Recommend screening mammography in one year. OVERALL Assessment: BI-RADS 1 Negative. The recommendation above has been entered into a reminder system to monitor and facilitate patient compliance. Narrative 04/13/2019 1:59 PM EDT BI MAMMOGRAM SCREENING WITH TOMOSYNTHESIS WITH CAD (BILATERAL) Exam is performed with digital mammography, computer aided detection and tomosynthesis. The patient presents for annual mammography. Comparison is made with previous mammograms spanning March 2018 through November 2014. Density: The breast tissue is diffusely dense, an appearance which could obscure a lesion on mammography. There are no suspicious masses, suspicious calcifications, areas of distortion or other signs of malignancy. A biopsy clip in the upper outer right breast is unchanged in position. Procedure Note Jeyson Cotto MD - 04/13/2019 BI MAMMOGRAM SCREENING WITH TOMOSYNTHESIS WITH CAD (BILATERAL) Exam is performed with digital mammography, computer aided detection and tomosynthesis. The patient presents for annual mammography. Comparison is made with previous mammograms spanning March 2018 throughNovember 2014. Density: The breast tissue is diffusely dense, an appearance which couldobscure a lesion on mammography. There are no suspicious masses, suspicious calcifications, areas of distortion or other signs of malignancy. A biopsyclip in the upper outer right breast is unchanged in position. IMPRESSION: No evidence of malignancy. No significant change from prior examinations. Recommend screening mammography in one year. OVERALL Assessment: BI-RADS 1 Negative. The recommendation above has been entered into a reminder system tomonitor and facilitate patient compliance. Chapin Lovell MD IMG MG EXAMS Final Res ult documented in this encounter Visit Diagnoses Diagnosis Screening mammogram, encounter for Screening mammogram, encounter for documented in this encounter Additional Health Concerns Assessment Noted Time PHQ-2 Depression Total Score: 0 04/13/20 18 1:45 PM EDT documented as of this encounter Care Teams Reconciliation Coordinator Relationship Specialty Start Date End Date Chapin Lovell MD [address] [place] [id number] [email or web address] PCP - General Internal Medicine 12/10/13 Chapin Lovell MD [address] [place] [address] [email or web address] Historical LMR Provider 12/04/16 Chapin Lovell MD [address] [place] [address] [email or web address] Insurance Assigned Provider 09/24/23 documented as of this encounter Additional Source Comments The information contained in this document represents components of the legal health record. It is not the complete legal health record.[facility]
--- OUTSIDE RECORDS SUMMARY | 2025-03-15 15:34 | XMS_ITS | Encounter Summary ---
Author Organization [facility] Address [address] [place] [address] Phone Care Team Providers Care Celery Cutter Name Role Phone Chapin Lovell MD Primary Care Provider [phone] Chapin Lovell MD Unavailable [phone] Chapin Lovell MD Unavailable [phone] Encounter Details Date Type Department Care Team (Late st Contact Info) Description 04/11/2020 Procedure Pass [facility]- Breast Imaging, [facility] [address] [place] [address] Social History Tobacco Use Types Packs/Day Years [...] 05/31/2025 10:30 AM EST Office Visit [facility] [address] [facility] [address] [place] [address] Chapin Lovell MD [address] [facility] [address] [place] [address] [email or web address] documented as of this encounter Visit Diagnoses Not on filedocumented in this encounter Additional Health Concerns Assessment Noted Time PHQ-2 Depression Total Score: 2 08/08/19 21 12:40 PM EST documented as of this encounter Care Teams Celery Cutter Relationship Specialty Start Date End Date Chapin Lovell MD [address] [place] [address] [place] [address] [email or web address] PCP - General Internal Medicine 12/10/13 Chapin Lovell MD [address] [place] [address] [place] [address] [email or web address] Historical LMR Provider 12/04/16 Chapin Lovell MD [address] [place] [address] [place] [address] [email or web address] Insurance Assigned Provider 09/24/23 documented as of this encounter Additional Source Comments The information contained in this document represents components of the legal health record. It is not the complete legal health record.[facility]
--- OUTSIDE RECORDS SUMMARY | 2025-03-15 15:34 | XMS_ITS | Encounter Summary ---
Author Organization [facility] Address [address] [facility] [facility] [address] [place] [address] Phone Care Team Providers Care Unit Supervisor Name Role Phone Chapin Lovell MD Primary Care Provider [phone] Chapin Lovell MD Unavailable [phone] Chapin Lovell MD Unavailable [phone] Encounter Details Date Type Department Care Team (Late st Contact Info) Description 01/07/2022 Procedure Pass [facility]- [facility], [facility] [address] [place], [place] [id number] Social History Tobacco Use Types Packs/Day Years [...] 05/31/2025 10:30 AM EST Office Visit [facility] [address] [facility] [address] [place] [address] Chapin Lovell MD [address] [facility] [address] [place] [address] [email or web address] documented as of this encounter Visit Diagnoses Not on filedocumented in this encounter Additional Health Concerns Assessment Noted Time PHQ-2 Depression Total Score: 2 03/13/20 21 7:25 PM EDT documented as of this encounter Care Teams Unit Supervisor Relationship Specialty Start Date End Date Chapin Lovell MD [address] [place] [address] [place] [address] [email or web address] PCP - General Internal Medicine 12/10/13 Chapin Lovell MD [address] [place] [address] [place] [address] [email or web address] Historical LMR Provider 12/04/16 Chapin Lovell MD [address] [place] [address] [place] [address] [email or web address] Insurance Assigned Provider 09/24/23 documented as of this encounter Additional Source Comments The information contained in this document represents components of the legal health record. It is not the complete legal health record.[facility]
--- OUTSIDE RECORDS SUMMARY | 2025-03-15 15:34 | XMS_ITS | Encounter Summary ---
Author Organization [facility] Address [address] [facility] [address] [place] [address] Phone Care Team Providers Care Paraprofessional Aide Name Role Phone Chapin Lovell MD Primary Care Provider [phone] Chapin Lovell MD Unavailable [phone] Chapin Lovell MD Unavailable Encounter Details Date Type Department Care Team (Late st Contact Info) Description 07/02/2019 Ancillary Orders [facility] [address] 3 [place] [address] Chapin Lovell MD [address] [place] [address] Anil. 3 [place] [address] [email or web address] Social History Tobacco Use Types Packs/Day Years [...] Description 05/31/2025 10:30 AM EST Office Visit [facility] 3 [place] [address] Chapin Lovell MD [address] [place] [address] 3 [place] [address] [email or web address] documented as of this encounter Visit Diagnoses Not on filedocumented in this encounter Additional Health Concerns Assessment Noted Time PHQ-2 Depression Total Score: 0 11/02/19 19 2:39 PM EDT documented as of this encounter Care Teams Paraprofessional Aide Relationship Specialty Start Date End Date Chapin Lovell MD [address] [place] [address] [place] [address] [email or web address] PCP - General Internal Medicine 12/10/13 Chapin Lovell MD [address] [place] [address] [place] [address] [email or web address] Historical LMR Provider 12/04/16 Chapin Lovell MD [address] [place] [address] [place] [address] [email or web address] Insurance Assigned Provider 09/24/23 documented as of this encounter Additional Source Comments The information contained in this document represents components of the legal health record. It is not the complete legal health record.[facility]
--- OUTSIDE RECORDS SUMMARY | 2025-03-15 15:34 | XMS_ITS | Encounter Summary ---
Author Organization [facility] Address [address] [facility] [address] [place] [address] Phone Care Team Providers Care Mobile Mechanic Name Role Phone Chapin Lovell MD Primary Care Provider [phone] Chapin Lovell MD Unavailable Chapin Lovell MD Unavailable [phone] Encounter Details Date Type Department Care Team (Late st Contact Info) Description 03/15/2025 Orders Only [facility] [address] [facility] [address] [place] [address] Marla Cavazos [place] 399 [place] [address] [email or web address] Pre-operative examination; Subclinical hypothyroidism; Elevated hemoglobin A1c Social History Tobacco Use [...] Description 05/31/2025 10:30 AM EST Office Visit [facility] [address] [facility] 3 [place] [address] Chapin Lovell MD [address] [place] [address]. [address] [place] [address] [email or web address] documented as of this encounter Procedures Procedure Name Priority Date/Time Associated Diagnosis Comments OUTSIDE ECG Routine 03/15/2025 10:07 AM EDT documented in this encounter Results * Outside ECG Report Only (03/15/2025 10:07 AM EDT) us Historical Provider ECG ORDERABLES Final Res ult documented in this encounter Visit Diagnoses Diagnosis Pre-operative examination Unspecified pre-operative examination Subclinical hypothyroidism Other specified acquired hypothyroidism Elevated hemoglobin A1c Other abnormal blood chemistry documented in this encounter Additional Health Concerns Assessment Noted Time PHQ-9 Depression Total Score: 0 03/15/20 25 8:56 AM EDT PHQ-2 Depression Total Score: 0 03/15/20 25 8:56 AM EDT documented as of this encounter Care Teams Mobile Mechanic Relationship Specialty Start Date End Date Chapin Lovell MD [address] [place] [address]. 3 [place] [address] [email or web address] PCP - General Internal Medicine 12/10/13 Chapin Lovell MD [address] [place] [address]. 3 [place] [address] [email or web address] Historical LMR Provider 12/04/16 Chapin Lovell MD [address] [address] [email or web address] Insurance Assigned Provider 09/24/23 documented as of this encounter Additional Source Comments The information contained in this document represents components of the legal health record. It is not the complete legal health record.[facility]
--- OUTSIDE RECORDS SUMMARY | 2025-03-15 15:34 | XMS_ITS | Encounter Summary ---
Author Organization [facility] Address [address] [facility] [address] [place] [address] Phone Care Team Providers Care Maintenance Mechanic Helper Name Role Phone Chaipn Lovell MD Primary Care Provider [phone] Chapin Lovell MD Unavailable Chapin Lovell MD Unavailable [phone] Encounter Details Date Type Department Care Team (Late Contact Info) Description 04/11/2020 Ancillary Orders [facility] [address] 3 [place] [address] Chapin Lovell MD [address] [place] [address]. 3 [place] [address] Social History Tobacco Use Types Packs/Day Years [...] 05/31/2025 10:30 AM EST Office Visit [facility] 8[address] [facility] 3 [place] [address] Chapin Lovell MD 3 [facility] 3 [place] [address] [email or web address] documented as of this encounter Visit Diagnoses Not on filedocumented in this encounter Additional Health Concerns Assessment Noted Time PHQ-2 Depression Total Score: 2 10/17/19 20 3:03 PM EDT documented as of this encounter Care Teams Maintenance Mechanic Helper Relationship Specialty Start Date End Date Chapin Lovell MD [address] [place] [address] 3 [place] [address] [email or web address] PCP - General Internal Medicine 12/10/13 Chapin Lovell MD [address] [place] [address] [place] [address] [email or web address] Historical LMR Provider 12/04/16 Chapin Lovell MD [address] [place] [address] [place] [address] [email or web address] Insurance Assigned Provider 09/24/23 documented as of this encounter Additional Source Comments The information contained in this document represents components of the legal health record. It is not the complete legal health record.[facility]
--- OUTSIDE RECORDS SUMMARY | 2025-03-15 15:34 | XMS_ITS | Encounter Summary ---
Author Organization [facility] Address [address] [facility] [address] [place] [address] Phone Care Team Providers Care Can Washer Name Role Phone Chapin Lovell MD Primary Care Provider [phone] Chapin Lovell MD Unavailable Chapin Lovell MD Unavailable Encounter Details Date Type Department Care Team (Late st Contact Info) Description 01/07/2022 Ancillary Orders [facility] Cardiology Department [facility] Cardiovascular [place] - [facility] ISAEL Minor [phone] Chapin Lovell MD [address] [address] [email or web address] Visit for screening mammogram Social History Tobacco [...] Description 05/31/2025 10:30 AM EST Office Visit [facility] [address] [place] [address] Chapin Lovell MD [address] [facility]. Anil. 3 [place] [address] [email or web address] documented as of this encounter Results * BI MAMMOGRAM SCREENING WITH TOMOSYNTHESIS WITH CAD (BILATERAL) (01/14/2022 3:22 PM EDT) Anatomical Region Laterality Modality Breast Left, Breast Right, Breast Bilateral Bila teral Mammography 01/15/2022 1:07 PM EDT Impressions 01/15/2022 1:08 PM EDT Negative, no mammographic evidence of malignancy. Routine screening mammography is recommended in one year. OVERALL Assessment: BI-RADS 1 Negative. The patient was sent a letter with the results of the exam and follow-up recommendation. The recommendation above has been entered into a reminder system to monitor and facilitate patient compliance. Narrative 01/15/2022 1:08 PM EDT BI MAMMOGRAM SCREENING WITH TOMOSYNTHESIS WITH CAD (BILATERAL): Reason for exam: Screening. No new breast complaints. TECHNIQUE: Digital Mammography and tomosynthesis were used to obtain images. Computer Aided Detection was used to aid in interpretation COMPARISON: Comparison is made with relevant prior imaging in PACS. BREAST DENSITY: The breast tissue is extremely dense, which lowers the sensitivity of mammography FINDINGS: There are no suspicious masses, calcifications, or other abnormalities noted. Procedure Note Ladonna Bustamante MD, MBBS - 01/15/2022 BI MAMMOGRAM SCREENING WITH TOMOSYNTHESIS WITH CAD (BILATERAL): Reason for exam: Screening. No new breast complaints. TECHNIQUE: Digital Mammography and tomosynthesis were used to obtain images. ComputerAided Detection was used to aid in interpretation COMPARISON: Comparison is made with relevant prior imaging in PACS. BREAST DENSITY: The breast tissue is extremely dense, which lowers thesensitivity of mammography FINDINGS: There are no suspicious masses, calcifications, or otherabnormalities noted. IMPRESSION: Negative, no mammographic evidence of malignancy. Routine screening mammography is recommended in one year. OVERALL Assessment: BI-RADS 1 Negative. The patient was sent a letter with the results of the exam and follow-uprecommendation. The recommendation above has been entered into a remindersystem to monitor and facilitate patient compliance. Chapin Lovell MD IMG MG EXAMS Final Res ult documented in this encounter Visit Diagnoses Diagnosis Visit for screening mammogram Visit for screening mammogram documented in this encounter Additional Health Concerns Assessment Noted Time PHQ-2 Depression Total Score: 2 03/13/20 21 7:25 PM EDT documented as of this encounter Care Teams Can Washer Relationship Specialty Start Date End Date Chapin Lovell MD [address] [place], [place] [address] [address] [email or web address] PCP - General Internal Medicine 12/10/13 Chapin Lovell MD [address] [place] [address] [place] [address] [email or web address] Historical LMR Provider 12/04/16 Chapin Lovell MD [address] [place], [place] [address] [address] [email or web address] Insurance Assigned Provider 09/24/23 documented as of this encounter Additional Source Comments The information contained in this document represents components of the legal health record. It is not the complete legal health record.[facility]
--- OUTSIDE RECORDS SUMMARY | 2025-03-15 15:34 | XMS_ITS | Encounter Summary ---
Author Organization [facility] Address [address] [facility] [address] [place] [address] Phone Care Team Providers Care Stunt Double Name Role Phone Chapin Lovell MD Primary Care Provider [phone] Chapin Lovell MD Unavailable [phone] Chapin Lovell MD Unavailable Encounter Details Date Type Department Care Team (Late Contact Info) Description 06/28/2016 Ancillary Orders [facility] [address] [place], [place] [id number] Chapin Lovell MD [address] [place] [address] [email or web address] Screening Social History Tobacco Use Types Packs/Day Years Used Date Smoking Tobacco: Never Comments No Sex and Gender [...] Description 05/31/2025 10:30 AM EST Office Visit [address] 3 [place] [address] Chapin Lovell MD [address] [place] [address] 3 [place] [address] [email or web address] documented as of this encounter Results * BI MAMMOGRAM SCREENING WITH TOMOSYNTHESIS WITH CAD (BILATERAL) (12/23/2016 1:59 PM EDT) Anatomical Region Laterality Modality Breast Left, Breast Right, Breast Bilateral Bila teral Mammography Impressions 12/23/2016 2:28 PM EDT No evidence of malignancy. No significant change from prior examinations. Result Code: BI-RADS 1 Negative. Recommendations: Mammography Screening Recommendation Due Date: 12 Months The recommendation due date has been entered into a reminder system. Narrative 12/23/2016 2:28 PM EDT BI MAMMOGRAM SCREENING WITH TOMOSYNTHESIS WITH CAD (BILATERAL) BILATERAL DIGITAL MAMMOGRAM: HISTORY: The patient presents for annual mammography. TECHNIQUE: The examination is performed with digital mammography and computer aided detection. Tomosynthesis imaging was performed, as well. COMPARISON: 12/18/2015 through 12/14/2013 FINDINGS: The breast tissue is heterogeneously dense, an appearance which lowers the sensitivity of mammography. There are no suspicious masses, suspicious calcifications, areas of distortion or other signs of malignancy. There is a biopsy marking clip in the upper outer right breast. Procedure Note Danelle Huynh MD - 12/23/2016 BI MAMMOGRAM SCREENING WITH TOMOSYNTHESIS WITH CAD (BILATERAL) BILATERAL DIGITAL MAMMOGRAM: HISTORY: The patient presents for annual mammography. TECHNIQUE: The examination is performed with digital mammography andcomputer aided detection. Tomosynthesis imaging was performed, as well. COMPARISON: 12/18/2015 through 12/14/2013 FINDINGS: The breast tissue is heterogeneously dense, an appearance whichlowers the sensitivity of mammography. There are no suspicious masses,suspicious calcifications, areas of distortion or other signs ofmalignancy. There is a biopsy marking clip in the upper outer rightbreast. IMPRESSION: No evidence of malignancy. No significant change from priorexaminations. Result Code: BI-RADS 1 Negative. Recommendations: Mammography Screening Recommendation Due Date: 12 Months The recommendation due date has been entered into a reminder system. Chapin Lovell MD IMG MG EXAMS Final Res ult documented in this encounter Visit Diagnoses Diagnosis Screening Screening for unspecified condition Screening for condition Screening for unspecified condition documented in this encounter Care Teams Stunt Double Relationship Specialty Start Date End Date Chapin Lovell MD [address] [place], [place] [address] [address] [email or web address] PCP - General Internal Medicine 12/10/13 Chapin Lovell MD [address] [place] [address] [place] [address] [email or web address] Historical LMR Provider 12/04/16 Chapin Lovell MD [address] [place], [place] [address] [address] [email or web address] Insurance Assigned Provider 09/24/23 documented as of this encounter Additional Source Comments The information contained in this document represents components of the legal health record. It is not the complete legal health record.[facility]
== END 2025-03-15 15:31 | disposition home or self-care (01) ==
LOC: HO.HPS 14:45
PROVIDERS: PCP Internal Medicine; Referring Provider Internal Medicine Gastroenterology; Visit Provider Hospitalist
DX: M41.9 Scoliosis, unspecified (principal); J98.4 Other disorders of lung; J98.11 Atelectasis
CPT/HCPCS: 99204

== ENCOUNTER → 2025-03-15 14:44 | Outpatient (BNVA) | payer MEDICARE, SELFPAY | PROVIDERS: PCP Internal Medicine; Referring Provider Internal Medicine Gastroenterology; Visit Provider Hospitalist | DX: Z01.818 Encounter for other preprocedural examination (principal); C44.90 Unspecified malignant neoplasm of skin, unspecified; J98.4 Other disorders of lung; J98.11 Atelectasis | CPT/HCPCS: 99202 ==

== ENCOUNTER 2025-03-25 12:27 | Outpatient (REF) | payer MEDICARE, SELFPAY ==
--- NOTE | ~2025-03-25 | XR_ITS ---
EXAMINATION: XR CHEST CLINICAL INFORMATION: M41.9 - Scoliosis, unspecified COMPARISON: X-ray 12/03/2021 TECHNIQUE: 2 views of the chest were obtained. FINDINGS: Rotated tilted positioning. Redemonstrated moderate thoracolumbar scoliosis with multilevel spondylosis. Cardiomediastinal silhouette is within normal limits. Mild bronchial wall thickening in the right lower lung, can be seen with small airway disease. No focal consolidation. No effusion. No pneumothorax is seen.. XR/XR chest 2V IMPRESSION: Bronchial wall thickening in the right lower lung, can be seen with small airway disease. Electronically signed by: Frederick Dietz MD 03/25/2025 01:01 PM EDT
--- OUTSIDE RECORDS SUMMARY | 2025-03-25 14:49 | XMS_ITS | Encounter Summary ---
Author Organization [facility] Address [address] [facility] [address] [place] [address] Phone Care Team Providers Care Garnett Mechanic Name Role Phone Chapin Lovell MD Primary Care Provider [phone] Chapin Lovell MD Unavailable [phone] Chapin Lovell MD Unavailable [phone] Encounter Details Date Type Department Care Team (Late st Contact Info) Description 04/11/2020 Procedure [facility], [facility] 2013 [place] [address] Social History Tobacco Use Types Packs/Day Years [...] 05/31/2025 10:30 AM EST Office Visit [facility] [address] [facility] 3 [place] [address] Chapin Lovell MD [address] [facility] Anil. 3 [place] [address] [email or web address] documented as of this encounter Visit Diagnoses Not on filedocumented in this encounter Additional Health Concerns Assessment Noted Time PHQ-2 Depression Total Score: 2 08/08/19 21 12:40 PM EST documented as of this encounter Care Teams Garnett Mechanic Relationship Specialty Start Date End Date Chapin Lovell MD [address] [place] [address] [place] [address] [email or web address] PCP - General Internal Medicine 12/10/13 Chapin Lovell MD [address] [place] [address] [place] [address] [email or web address] Historical LMR Provider 12/04/16 Chapin Lovell MD [address] [place] [address] [place] [address] [email or web address] Insurance Assigned Provider 09/24/23 documented as of this encounter Additional Source Comments The information contained in this document represents components of the legal health record. It is not the complete legal health record.[facility]
--- OUTSIDE RECORDS SUMMARY | 2025-03-25 14:49 | XMS_ITS | Encounter Summary ---
Author Organization [facility] Address [address] [facility] [address] [place] [address] Phone Care Team Providers Care Manufacture Specialist Name Role Phone Chapin Lovell MD Primary Care Provider [phone] Chapin Lovell MD Unavailable [phone] Chapin Lovell MD Unavailable Encounter Details Date Type Department Care Team (Late st Contact Info) Description 04/11/2020 Ancillary Orders [facility] 2013 [place], [place] [id number] Chapin Lovell MD [address] [address] [email or web address] Visit for screening mammogram Social History Tobacco [...] Description 05/31/2025 10:30 AM EST Office [facility] [address] [facility] 3 [place] [address] Chapin Lovell MD [address] [facility]. Anil. 3 [place] [address] [email or web address] documented as of this encounter Results * [...] documented as of this encounter Care Teams Manufacture Specialist Relationship Specialty Start Date End Date Chapin Lovell MD [address] [place] [address] [email or web address] PCP - General Internal Medicine 12/10/13 Chapin Lovell MD [address] [place] [address] [email or web address] Historical LMR Provider 12/04/16 Chapin Lovell MD [address] [place] [address] [email or web address] Insurance Assigned Provider 09/24/23 documented as of this encounter Additional Source Comments The information contained in this document represents components of the legal health record. It is not the complete legal health record.[facility]
--- OUTSIDE RECORDS SUMMARY | 2025-03-25 14:49 | XMS_ITS | Encounter Summary ---
Author Organization [facility] Address [address] [facility] [address] [place] [address] Phone Care Team Providers Care Productivity Engineer Name Role Phone Chapin Lovell MD Primary Care Provider [phone] Chapin Lovell MD Unavailable Chapin Lovell MD Unavailable Encounter Details Date Type Department Care Team (Late st Contact Info) Description 09/21/2018 Ancillary Orders [facility] [place] [facility] [address] [facility] 3 [place] [address] Chapin Lovell MD 3 [facility] Anil. 3 [place] [address] [email or web address] Screening mammogram, encounter for Social [...] Description 05/31/2025 10:30 AM EST Office Visit [facility] [address] [facility] [address] [place] [address] Chapin Lovell MD [address] [facility]. Anil. 3 [place] [address] [email or web address] documented as of this encounter [...] documented as of this encounter Care Teams Productivity Engineer Relationship Specialty Start Date End Date Chapin Lovell MD [address] [place] [address] [email or web address] PCP - General Internal Medicine 12/10/13 Chapin Lovell MD [address] [place] [address] [email or web address] Historical LMR Provider 12/04/16 Chapin Lovell MD [address] [place] [address] [email or web address] Insurance Assigned Provider 09/24/23 documented as of this encounter Additional Source Comments The information contained in this document represents components of the legal health record. It is not the complete legal health record.[facility]
--- OUTSIDE RECORDS SUMMARY | 2025-03-25 14:49 | XMS_ITS | Encounter Summary ---
Author Organization [facility] Address [address] [place] [address] Phone Care Team Providers Care Body And Fender Mechanic Name Role Phone Chapin Lovell MD Primary Care Provider [phone] Chapin Lovell MD Unavailable [phone] Chapin Lovell MD Unavailable [phone] Encounter Details Date Type Department Care Team (Late st Contact Info) Description 03/15/2025 Orders Only [facility] [address] [place] [address] Marla Cavazos [place] [address] [place] [address] [email or web address] Pre-operative examination; Subclinical hypothyroidism; Elevated hemoglobin A1c [...] Description 05/31/2025 10:30 AM EST Office Visit [facility] [address] [facility] [address] [facility] [address] [place] [address] Chapin Lovell MD [address] [facility]. [address]il[address] [place] [address] [email or web address] documented as of this encounter Procedures Procedure Name Priority Date/Time Associated Diagnosis Comments OUTSIDE ECG Routine 03/15/2025 10:07 AM EDT T4, FREE Routine 03/15/2025 10:03 AM EDT Subclinical hypothyroidism COMPREHENSIVE METABOLIC PANEL Routine 03/15/2025 10:03 AM EDT Elevated hemoglobin A1c CBC W/O DIFF. Routine 03/15/2025 10:03 AM EDT Elevated hemoglobin A1c TSH Routine 03/15/2025 10:03 AM EDT Subclinical hypothyroidism HEMOGLOBIN A1C Routine 03/15/2025 10:03 AM EDT Elevated hemoglobin A1c LIPID PANEL Routine 03/15/2025 10:03 AM EDT Pre-operative examination Subclinical hypothyroidism Elevated hemoglobin A1c documented in this encounter Results * Outside ECG Report Only (03/15/2025 10:07 AM EDT) us Historical Provider ECG ORDERABLES Final Res ult * (ABNORMAL) Comprehensive metabolic panel (03/15/2025 10:03 AM EDT) Sodium 143 135 - 146 mEq/L [facility] Potassium 4.7 3.5 - 5.3 mEq/L [facility] Chloride 105 98 - 107 mEq/L [facility] CO2 32(H) 20 - 31 mEq/L [facility] Anion Gap 6 4 - 14 [facility] Glucose 78 70 - 99 mg/dL [facility] BUN 27(H) 6 - 20 mg/dL [facility] Creatinine 0.8 0.6 - 1.1 mg/dL [facility] GFR 75 >60 mL/min/1.7 3m^2 [facility] Calcium 9.7 8.4 - 10.2 mg/dL [facility] Corrected Calcium 9.5 8.4 - 10.2 mg/dL [facility] Protein, Total 6.5 6.2 - 8.2 g/dL [facility] Alkaline Phosphatase 67 0 - 130 U/L [facility] Albumin 4.3 3.3 - 4.9 g/dL [facility] ALT (SGPT) 18 0 - 40 U/L [facility] AST (SGOT) 20 0 - 33 U/L [facility] Bilirubin, Total 0.5 0.3 - 1.2 mg/dL [facility] Blood 03/15/2025 10:0 3 AM EDT 03/15/2025 4:31 PM EDT Narrative Resulting Agency Comment No Chapin Lovell MD LAB BLOOD ORDERABLES Denise l Result [facility] [address] * (ABNORMAL) TSH (03/15/2025 10:03 AM EDT) TSH 3rd Gen 5.59(H) 0.35 - 5.50 uIU/mL [facility] Blood 03/15/2025 10:0 3 AM EDT 03/15/2025 4:31 PM EDT Narrative Resulting Agency Comment No Chapin Lovell MD LAB BLOOD ORDERABLES Denise l Result [facility] [address] [facility] [address] * T4, Free (03/15/2025 10:03 AM EDT) T4, Free 0.8 0.6 - 1.8 ng/dL [facility] Blood 03/15/2025 10:0 3 AM EDT 03/15/2025 4:31 PM EDT Narrative Resulting Agency Comment No Chapin Lovell MD LAB BLOOD ORDERABLES Denise l Result [facility] [address] [place] [address] * (ABNORMAL) CBC w/o Diff. (03/15/2025 10:03 AM EDT) Pathologist [facility] WBC 3.9 3.9 - 11.0 k/uL [facility] RBC 4.08 3.79 - 5.23 M/uL [facility] HGB 13.5 11.0 - 15.0 g/dL [facility] HCT 41.9 34.0 - 46.0 % [facility] MCV 103(H) 80 - 100 fL [facility] MCH 33 27 - 33 pg [facility] MCHC 32 31 - 36 g/dL [facility] RDW-CV 14.1 11.6 - 14.8 % [facility] PLT 198 142 - 424 K/uL [facility] Blood 03/15/2025 10:0 3 AM EDT 03/15/2025 4:31 PM EDT Narrative Resulting Agency Comment No Chapin Lovell MD LAB BLOOD ORDERABLES Denise l Result [facility] [address] [place] [address] * (ABNORMAL) Hemoglobin A1c (03/15/2025 10:03 AM EDT) Pathologist [facility] % HGB A1C 6.1(H) 0.0 - 5.6 % [facility] Comment: </=5.6 - Normal 5.7 - 6.4 - Increased diabetes risk >/= 6.5 - Suggests diabetes </= 7.0 - ADA therapeutic goal when diabetes is present, this target should be relaxed for some individuals depending on age, state of health and risk for low blood sugar. Mean Glucose 117 mg/dL [facility] Blood 03/15/2025 10:0 3 AM EDT 03/15/2025 4:31 PM EDT Narrative Resulting Agency Comment No us Chapin Lovell MD LAB BLOOD ORDERABLES Denise l Result Performing Organization Address [facility] de Phone Number [facility] [address] [place] [address] * Lipid panel (03/15/2025 10:03 AM EDT) Cholesterol 194 <200 mg/dL [facility] Triglycerides 51 <150 mg/dL [facility] Cholesterol, HDL 69 >40 mg/dL [facility] LDL Cholesterol, Calculated 115 <129 mg/dL [facility] Cholesterol/HDL Ratio 2.81 <4.43 [facility] Blood 03/15/2025 10:0 3 AM EDT 03/15/2025 4:31 PM EDT Narrative Resulting Agency Comment No us Chapin Lovell MD LAB BLOOD ORDERABLES Denise l Result Performing Organization Address [facility] Co de Phone Number [facility] [address] [place] [address] documented in this encounter Visit Diagnoses Diagnosis Pre-operative examination Unspecified pre-operative examination Subclinical hypothyroidism Other specified acquired hypothyroidism Elevated hemoglobin A1c Other abnormal blood chemistry documented in this encounter Additional Health Concerns Assessment Noted Time PHQ-9 Depression Total Score: 0 03/15/20 8:56 AM EDT PHQ-2 Depression Total Score: 0 03/15/20 8:56 AM EDT documented as of this encounter Care Teams Body And Fender Mechanic Relationship Specialty Start Date End Date Chapin Lovell MD [address] [place], [place] [address] [address] [email or web address] PCP - General Internal Medicine 12/10/13 Chapin Lovell MD [address] [place], [place] [address] [address] [email or web address] Historical LMR Provider 12/04/16 Chapin Lovell MD [address] [place], [place] [address] [address] [email or web address] Insurance Assigned Provider 09/24/23 documented as of this encounter Additional Source Comments The information contained in this document represents components of the legal health record. It is not the complete legal health record.[facility]
--- OUTSIDE RECORDS SUMMARY | 2025-03-25 14:49 | XMS_ITS | Clinical Summary ---
Author Organization [facility] Address [address] [place] [address] Phone Care Team Providers Care Fitness Sales Associate Name Role Phone Chapin Lovell MD Primary Care Provider [phone] Chapin Lovell MD Unavailable Chapin Lovell MD Unavailable [phone] Allergies Active Allergy Reactions Criticality Noted Date [...] with GI and has another appt with communications analyst coming up Discussed that I'm not as [...] Team Description 03/15/2025 9:00 AM EDT Follow-Up [place] [id number] [address] Chapin Lovell MD Pre-operative examination (Primary Dx); Squamous cell cancer of skin of nose; Subclinical hypothyroidism; Age-related osteoporosis without current pathological fracture; Postural kyphosis of cervicothoracic region; Thoracogenic scoliosis of thoracic region; Irritable bowel syndrome without diarrhea; Elevated hemoglobin A1c 03/15/2025 Orders Only [address] [address] Marla Cavazos MA Pre-operative examination; Subclinical hypothyroidism; Elevated hemoglobin A1c 02/06/2025 4:15 PM EDT Telemedicine - audio only [address] [address] Chapin oLvell MD Wound infection after surgery (Primary Dx) 02/06/2025 Orders Only [address] [address] ProviderJh MD 01/29/2025 8:09 PM EDT - 01/29/2025 11:59 PM EDT Hospital Encounter [facility] DERMATOPATH OT [address] [place] [address] Discharge Disposition: Home or Self Care from [...] 02/24,03/27/2013(Deferred: Patient Decision - , Ordered By: [id number]),04/16/2011(Deferred: Patient Decision) Pneumococcal conjugate PCV13 03/05/2014 Pneumococcal [...] Description 05/31/2025 10:30 AM EST Office Visit [facility] [address] [facility] [place] [address] Chapin Lovell MD [address] [facility]. [address] [place] [address] [email or web address] Health Maintenance Due Date Last Done Comments [...] OUTSIDE ECG Routine 03/15/2025 10:07 AM EDT COMPREHENSIVE METABOLIC PANEL Routine 03/15/2025 10:03 AM EDT Elevated hemoglobin A1c TSH Routine 03/15/2025 10:03 AM EDT Subclinical hypothyroidism T4, FREE Routine 03/15/2025 10:03 AM EDT Subclinical hypothyroidism CBC W/O DIFF. Routine 03/15/2025 10:03 AM EDT Elevated hemoglobin A1c HEMOGLOBIN A1C Routine 03/15/2025 10:03 AM EDT Elevated hemoglobin A1c LIPID PANEL Routine 03/15/2025 10:03 AM EDT Pre-operative examination Subclinical hypothyroidism Elevated hemoglobin A1c DERMATOPATHOLOGY Routine 01/29/2025 12:0 0 AM EDT BD DXA SCREENING Routine 11/14/2024 12:3 0 PM EDT Other osteoporosis without current pathological fracture from Last 3 Months or Most Recently Relevant to Health Maintenance Results * Outside ECG Report Only (03/15/2025 10:07 AM EDT) Historical Provider ECG ORDERABLES Final Res ult * T4, Free (03/15/2025 10:03 AM EDT) Pathologist [facility] T4, Free 0.8 0.6 - 1.8 ng/dL [facility] Blood 03/15/2025 10:0 3 AM EDT 03/15/2025 4:31 PM EDT Narrative Resulting Agency Comment No Chapin Lovell MD LAB BLOOD ORDERABLES Denise l Result [facility] [address] [place] [address], [facility] * (ABNORMAL) Comprehensive metabolic panel (03/15/2025 10:03 AM EDT) Sodium 143 135 - 146 mEq/L [facility] Potassium 4.7 3.5 - 5.3 mEq/L [facility] Chloride 105 98 - 107 mEq/L [facility] CO2 32(H) 20 - 31 mEq/L [facility] Anion Gap 6 4 - 14 [facility] Glucose 78 70 - 99 mg/dL [facility] BUN 27(H) 6 - 20 mg/dL [facility] Creatinine 0.8 0.6 - 1.1 mg/dL [facility] GFR 75 >60 mL/min/1.7 3m^2 [facility] Calcium 9.7 8.4 - 10.2 mg/dL [facility] Corrected Calcium 9.5 8.4 - 10.2 mg/dL [facility] Protein, Total 6.5 6.2 - 8.2 g/dL [facility] Alkaline Phosphatase 67 0 - 130 U/L [facility] Albumin 4.3 3.3 - 4.9 g/dL [facility] ALT (SGPT) 18 0 - 40 U/L [facility] AST (SGOT) 20 0 - 33 U/L [facility] Bilirubin, Total 0.5 0.3 - 1.2 mg/dL [facility] Blood 03/15/2025 10:0 3 AM EDT 03/15/2025 4:31 PM EDT Narrative Resulting Agency Comment No us Chapin Lovell MD LAB BLOOD ORDERABLES Denise ennis Result [facility] [address] * (ABNORMAL) CBC w/o Diff. (03/15/2025 10:03 AM EDT) WBC 3.9 3.9 - 11.0 k/uL [facility] RBC 4.08 3.79 - 5.23 M/uL [facility] HGB 13.5 11.0 - 15.0 g/dL [facility] HCT 41.9 34.0 - 46.0 % [facility] MCV 103(H) 80 - 100 fL [facility] MCH 33 27 - 33 pg [facility] MCHC 32 31 - 36 g/dL [facility] RDW-CV 14.1 11.6 - 14.8 % [facility] PLT 198 142 - 424 K/uL [facility] Blood 03/15/2025 10:0 3 AM EDT 03/15/2025 4:31 PM EDT Narrative Resulting Agency Comment No Result [facility] Chapin Lovell MD LAB BLOOD ORDERABLES Denise l Result Performing Organization Address [facility]/ZIP Co de Phone Number [facility] [address] [place] [address] * (ABNORMAL) TSH (03/15/2025 10:03 AM EDT) TSH 3rd Gen 5.59(H) 0.35 - 5.50 uIU/mL [facility] Blood 03/15/2025 10:0 3 AM EDT 03/15/2025 4:31 PM EDT Narrative Resulting Agency Comment No Result [facility] Chapin Lovell MD LAB BLOOD ORDERABLES Denise l Result Performing Organization Address [facility] Co de Phone Number [facility] [address] [place] [address] * (ABNORMAL) Hemoglobin A1c (03/15/2025 10:03 AM EDT) % HGB A1C 6.1(H) 0.0 - 5.6 % [facility] Comment: </=5.6 - Normal 5.7 - 6.4 - Increased diabetes risk >/= 6.5 - Suggests diabetes </= 7.0 - ADA therapeutic goal when diabetes is present, this target should be relaxed for some individuals depending on age, state of health and risk for low blood sugar. Mean Glucose 117 mg/dL [facility] Blood 03/15/2025 10:0 3 AM EDT 03/15/2025 4:31 PM EDT Narrative Resulting Agency Comment No Result [facility] Chapin Lovell MD LAB BLOOD ORDERABLES Denise l Result Performing Organization Address [facility]/ZIP Co de Phone Number [facility] [address] [place] [address] * Lipid panel (03/15/2025 10:03 AM EDT) Cholesterol 194 <200 mg/dL [facility] Triglycerides 51 <150 mg/dL [facility] Cholesterol, HDL 69 >40 mg/dL [facility] LDL Cholesterol, Calculated 115 <129 mg/dL [facility] Cholesterol/HDL Ratio 2.81 <4.43 [facility] Blood 03/15/2025 10:0 3 AM EDT 03/15/2025 4:31 PM EDT Narrative Resulting Agency Comment No us Chapin Lovell MD LAB BLOOD ORDERABLES Denise enins Result [facility] [address] * Dermatopathology (01/29/2025 12:00 AM EDT) 01/29/2025 01/29/2025 Narrative SEE NARRATIVE - 02/04/2025 2:22 PM EDT [facility] Organization [address] [place] [address] Tel. [phone] [email or web address] Salbador Duque MD, Photographic Aide DERMATOPATHOLOGY REPORT PATIENT: ELEONORA EDWARDS PATIENT ID: Not Provided : 1945 SPECIMEN NUMBER: [id number] PHYSICIAN: Zenaida Fairbanks MD, PHD AGE: 80 SEX: F PHONE: [phone] DATE OF PROCEDURE: 01/29/2025 DATE OF DATE REPORTED: 02/04/2025 14:22 LOCATION: [address] [place] [address], [address] [place] [address] PRACTICE: Zenaida Fairbanks MD ([facility]) CLINICAL HISTORY A, B. R/O BCC [...] Gould MD, PhD (Electronic Signature) 02/04/2025 14:22 [facility] PATHOLOGY ORDERABLES Fin al Result SEE NARRATIVE * DXA Spine and Hip (12/08/2022 11:19 AM EDT) Anatomical Region Laterality Modality Bone Density Bone Density 12/08/2022 11:1 9 AM EDT Narrative 12/08/2022 11:19 AM EDT History: Osteoporosis Technique: BONE DENSITOMETRY: Scans of the lumbar spine and left hip were performed on a FullContact Discovery SL unit. W.H.O. Classification is based [...] and left hip were performed on a GREE SL unit. W.H.O. Classification is based on [...] Dictated: 12/08/2022 11:19Transcribed by: Chapin Lovell MD IMG BD BONE DENSITY DEXA Final Result from Last 3 Months or Most Recently Relevant to Health Maintenance Insurance MEDICARE PART A & B [employer] SUPPLEMENT MEDICARE PART A & B [employer] SUPPLEMENT MEDICARE PART A & B [facility] MEDEX SUPPLEMENT MEDICARE PART A & B [employer] MED[employer] SUPPLEMENT MEDICARE PART A & B [employer] SUPPLEMENT MEDICARE PART A & B [employer] SUPPLEMENT MEDICARE PART A & B [employer] SUPPLEMENT MEDICARE PART A & B [employer] SUPPLEMENT MEDICARE PART A & B [employer] SUPPLEMENT MEDICARE PART A & B [employer] SUPPLEMENT MEDICARE PART A & B [employer] SUPPLEMENT Care Teams Fitness Sales Associate Relationship Specialty Start Date End Date Chapin Lovell MD [address] [place] [address] [place] [address] [email or web address] PCP - General Internal Medicine 12/10/13 Chapin Lovell MD [address] [place], [place] [address] [address] [email or web address] Historical LMR Provider 12/04/16 Chapin Lovell MD [address] [place], [place] [address] [address] [email or web address] Insurance Assigned Provider 09/24/23 Additional Source Comments The information contained in this document represents components of the legal health record. It is not the complete legal health record.[facility]
--- OUTSIDE RECORDS SUMMARY | 2025-03-25 14:49 | XMS_ITS | Encounter Summary ---
Author Organization [facility] Address [address] [facility] [address] [place] [address] Phone Care Team Providers Care Dean Of Boys Name Role Phone Chapin Lovell MD Primary Care Provider [phone] Chapin Lovell MD Unavailable Chapin Lovell MD Unavailable [phone] Encounter Details Date Type Department Care Team (Late Contact Info) Description 04/11/2020 Ancillary Orders [facility] [address] [place] [address] Chapin Lovell MD [address] [place] [address]. [address] [place] [address] [email or web address] Social History Tobacco Use Types [...] 05/31/2025 10:30 AM EST Office Visit [facility] [address] [place] [address] Chapin Lovell MD 3 [facility] 3 [place] [address] [email or web address] documented as of this encounter Visit Diagnoses Not on filedocumented in this encounter Additional Health Concerns Assessment Noted Time PHQ-2 Depression Total Score: 2 10/17/19 20 3:03 PM EDT documented as of this encounter Care Teams Dean Of Boys Relationship Specialty Start Date End Date Chapin Lovell MD [address] [place] [address] [address] [place] [address] [email or web address] PCP - General Internal Medicine 12/10/13 Chapin Lovell MD [address] [place] [address] [place] [address] [email or web address] Historical LMR Provider 12/04/16 Chapin Lovell MD [address] [place] [address] [place] [address] [email or web address] Insurance Assigned Provider 09/24/23 documented as of this encounter Additional Source Comments The information contained in this document represents components of the legal health record. It is not the complete legal health record.[facility]
--- OUTSIDE RECORDS SUMMARY | 2025-03-25 14:50 | XMS_ITS | Encounter Summary ---
Author Organization [facility] Address [address] [place] [address] Phone Care Team Providers Care Deployment Specialist Name Role Phone Chapin Lovell MD Primary Care Provider [phone] Chapin Lovell MD Unavailable Chapin Lovell MD Unavailable Encounter Details Date Type Department Care Team (Late Contact Info) Description 06/28/2016 Ancillary Orders [facility] [address] [place], [place] [id number] Chapin Lovell MD [address] [place] [address] [email or web address] Screening Social History Tobacco Use Types Packs/Day [...] Description 05/31/2025 10:30 AM EST Office Visit [address] [place] [address] Chapin Lovell MD [address] [place] [address] 3 [place] [address] [email or web address] documented as of this encounter Results * [...] condition documented in this encounter Care Teams Deployment Specialist Relationship Specialty Start Date End Date Chapin Lovell MD [address] [place], [place] [address] [address] [email or web address] PCP - General Internal Medicine 12/10/13 Chapin Lovell MD [address] [place] [address] [place] [address] [email or web address] Historical LMR Provider 12/04/16 Chapin Lovell MD [address] [place], [place] [address] [address] [email or web address] Insurance Assigned Provider 09/24/23 documented as of this encounter Additional Source Comments The information contained in this document represents components of the legal health record. It is not the complete legal health record.[facility]
--- OUTSIDE RECORDS SUMMARY | 2025-03-25 14:50 | XMS_ITS | Encounter Summary ---
Author Organization [facility] Address [address] [facility] [address] [place] [address] Phone Care Team Providers Care Ion Exchange Operator Name Role Phone Chapin Lovell MD Primary Care Provider [phone] Chapin Lovell MD Unavailable [phone] Chapin Lovell MD Unavailable Encounter Details Date Type Department Care Team (Late st Contact Info) Description 01/07/2022 Ancillary Orders [facility] Cardiology Department 2014 [facility] Cardiovascular [place] - 2 [facility] ISAEL Minor [id number] Chapin Lovell MD [address] [address] [email or web address] Visit for screening mammogram Social History Tobacco [...] Description 05/31/2025 10:30 AM EST Office Visit [facility] [address] [place] [address] Chapin Lovell MD 873 [facility]. Anil. 3 [place] [address] [email or web address] documented as of this [...] documented as of this encounter Care Teams Ion Exchange Operator Relationship Specialty Start Date End Date Chapin Lovell MD [address] [place], [place] [address] [address] [email or web address] PCP - General Internal Medicine 12/10/13 Chapin Lovell MD [address] [place] [address] ISAEL Cannon [address] [email or web address] Historical LMR Provider 12/04/16 Chapin Lovell MD [address] [place], [place] [address] [address] [email or web address] Insurance Assigned Provider 09/24/23 documented as of this encounter Additional Source Comments The information contained in this document represents components of the legal health record. It is not the complete legal health record.[facility]
--- OUTSIDE RECORDS SUMMARY | 2025-03-25 14:50 | XMS_ITS | Encounter Summary ---
Author Organization [facility] Address [address] [facility] [address] [place] [address] Phone Care Team Providers Care Legal Librarian Name Role Phone Chapin Lovell MD Primary Care Provider [phone] Chapin Lovell MD Unavailable [phone] Chapin Lovell MD Unavailable Encounter Details Date Type Department Care Team (Late st Contact Info) Description 11/18/2015 Prep for Surgery [address] [address] Luis Lopez MD [address] [place] [address] [email or web address] Social History Tobacco Use Types Packs/Day Years [...] Description 05/31/2025 10:30 AM EST Office Visit [facility] [address] [facility] 3 [place] [address] Chapin Lovell MD 873 [facility] 3 [place] [address] [email or web address] documented as of this encounter Visit Diagnoses Not on filedocumented in this encounter Care Teams Legal Librarian Relationship Specialty Start Date End Date Chapin Lovell MD [address] [place] [address] ISAEL Cannon [address] [email or web address] PCP - General Internal Medicine 12/10/13 Chapin Lovell MD [address] [place], [place] [address] [address] [email or web address] Historical LMR Provider 12/04/16 Chapin Lovell MD [address] [place] [address] [place] [address] [email or web address] Insurance Assigned Provider 09/24/23 documented as of this encounter Additional Source Comments The information contained in this document represents components of the legal health record. It is not the complete legal health record.[facility]
--- OUTSIDE RECORDS SUMMARY | 2025-03-25 14:50 | XMS_ITS | Encounter Summary ---
Author Organization [facility] Address [address] [facility] [address] [place] [address] Phone Care Team Providers Care Survey Research Analyst Name Role Phone Chapin Lovell MD Primary Care Provider [phone] Chapin Lovell MD Unavailable Chapin Lovell MD Unavailable Encounter Details Date Type Department Care Team (Late st Contact Info) Description 07/02/2019 Ancillary Orders [facility] [address] 3 [place] [address] Chapin Lovell MD [address] [place] [address] Anil. 3 [place] [address] [email or web address] Social History Tobacco Use Types Packs/Day Years [...] Description 05/31/2025 10:30 AM EST Office Visit [facility] 3 [facility] 3 [place] Cannon [address] Chapin Lovell MD [address] [place] [address] 3 [place] [address] [email or web address] documented as of this encounter Visit Diagnoses Not on filedocumented in this encounter Additional Health Concerns Assessment Noted Time PHQ-2 Depression Total Score: 0 11/02/19 19 2:39 PM EDT documented as of this encounter Care Teams Survey Research Analyst Relationship Specialty Start Date End Date Chapin Lovell MD [address] [place] [address] ISAEL Cannon [address] [email or web address] PCP - General Internal Medicine 12/10/13 Chapin Lovell MD [address] [place] [address] ISAEL Cannon [address] [email or web address] Historical LMR Provider 12/04/16 Chapin Lovell MD [address] [place] [address] ISAEL Cannon [address] [email or web address] Insurance Assigned Provider 09/24/23 documented as of this encounter Additional Source Comments The information contained in this document represents components of the legal health record. It is not the complete legal health record.[facility]
--- OUTSIDE RECORDS SUMMARY | 2025-03-25 14:50 | XMS_ITS | Encounter Summary ---
Author Organization [facility] Address [address] [facility] [address] [place] [address] Phone Care Team Providers Care Manager Core Name Role Phone Chapin Lovell MD Primary Care Provider [phone] Chapin Lovell MD Unavailable Chapin Lovell MD Unavailable Encounter Details Date Type Department Care Team (Late st Contact Info) Description 07/02/2019 Ancillary Orders [facility] [address] [place], [place] [id number] Chapin Lovell MD [address] [address] [email or web address] Visit for screening mammogram Social History Tobacco [...] 05/31/2025 10:30 AM EST Office [facility] [address] [employer] 3 [place] Cannon [address] Chapin Lovell MD 3 [facility]. 3 [place] [address] [email or web address] documented as of this encounter Visit Diagnoses Diagnosis Visit for screening mammogram documented in this encounter Additional Health Concerns Assessment Noted Time PHQ-2 Depression Total Score: 0 11/02/19 19 2:39 PM EDT documented as of this encounter Care Teams Manager Core Relationship Specialty Start Date End Date Chapin Lovell MD [address] [place] [address] 3 [place] Cannon [address] [email or web address] PCP - General Internal Medicine 12/10/13 Chapin Lovell MD [address] [place] [address] ISAEL Cannon [address] [email or web address] Historical LMR Provider 12/04/16 Chapin Lovell MD [address] [place] [address] [place] [address] [email or web address] Insurance Assigned Provider 09/24/23 documented as of this encounter Additional Source Comments The information contained in this document represents components of the legal health record. It is not the complete legal health record.[facility]
--- OUTSIDE RECORDS SUMMARY | 2025-03-25 14:50 | XMS_ITS | Encounter Summary ---
Author Organization [facility] Address [address] [facility] [address] [place] [address] Phone Care Team Providers Care Fleet Salesperson Name Role Phone Chapin Lovell MD Primary Care Provider [phone] Chapin Lovell MD Unavailable [phone] Chapin Lovell MD Unavailable [phone] Encounter Details Date Type Department Care Team (Late st Contact Info) Description 01/07/2022 Procedure [facility], [facility] 2013 [place], [place] [id number] Social History Tobacco Use Types Packs/Day Years [...] Description 05/31/2025 10:30 AM EST Office Visit [facility] 873 [facility] 3 [place] [address] Chapin Lovell MD 873 [facility] Anil. 3 [place] [address] [email or web address] documented as of this encounter Visit Diagnoses Not on filedocumented in this encounter Additional Health Concerns Assessment Noted Time PHQ-2 Depression Total Score: 2 03/13/20 21 7:25 PM EDT documented as of this encounter Care Teams Fleet Salesperson Relationship Specialty Start Date End Date Chapin Lovell MD [address] [place] [address] [place] [address] [email or web address] PCP - General Internal Medicine 12/10/13 Chapin Lovell MD [address] [place] [address] [place] [address] [email or web address] Historical LMR Provider 12/04/16 Chapin Lovell MD [address] [place] [address] [place] [address] [email or web address] Insurance Assigned Provider 09/24/23 documented as of this encounter Additional Source Comments The information contained in this document represents components of the legal health record. It is not the complete legal health record.[facility]
--- OUTSIDE RECORDS SUMMARY | 2025-03-25 14:50 | XMS_ITS | Encounter Summary ---
Author Organization [facility] Address [address] [facility] [address] [place] [address] Phone Care Team Providers Care Tmr Teacher Name Role Phone Chapin Lovell MD Primary Care Provider [phone] Chapin Lovell MD Unavailable Chapin Lovell MD Unavailable Encounter Details Date Type Department Care Team (Late st Contact Info) Description 01/07/2022 Ancillary Orders [employer] [place] [id number] [facility] 3 [place] [address] Chapin Lovell MD [address] [place] [address] Anil. 3 [place] [address] [email or web address] Social History Tobacco Use Types Packs/Day Years [...] Description 05/31/2025 10:30 AM EST Office Visit [facility] 8[address] [facility] 3 [place] [address] Chapin Lovell MD 3 [address] [place] [address] [email or web address] documented as of this encounter Visit Diagnoses Not on filedocumented in this encounter Additional Health Concerns Assessment Noted Time PHQ-2 Depression Total Score: 2 03/13/20 21 7:25 PM EDT documented as of this encounter Care Teams Tmr Teacher Relationship Specialty Start Date End Date Chapin Lovell MD [address] [place] [address] ISA[place] Cannon [address] [email or web address] PCP - General Internal Medicine 12/10/13 Chapin Lovell MD [address] [place] [address] [place] [address] [email or web address] Historical LMR Provider 12/04/16 Chapin Lovell MD [address] [place] [address] [place] [address] [email or web address] Insurance Assigned Provider 09/24/23 documented as of this encounter Additional Source Comments The information contained in this document represents components of the legal health record. It is not the complete legal health record.[facility]
--- OUTSIDE RECORDS SUMMARY | 2025-03-25 14:50 | XMS_ITS | Encounter Summary ---
Author Organization [facility] Address [address] [facility] [address] [place] [address] Phone Care Team Providers Care Skiver Sock Linings Name Role Phone Chapin Lovell MD Primary Care Provider [phone] Chapin Lovell MD Unavailable Chapin Lovell MD Unavailable Encounter Details Date Type Department Care Team (Late st Contact Info) Description 07/21/2017 Ancillary Orders [facility] [address] 3 [place] [address] Chapin Lovell MD [address] [place] [address]. [address] [place] [address] [email or web address] Breast screening Social History [...] 05/31/2025 10:30 AM EST Office Visit [facility] [address] 3 [place] [address] Chapin Lovell MD [address] [address] [email or web address] documented as of this encounter Results * [...] documented as of this encounter Care Teams Skiver Sock Linings Relationship Specialty Start Date End Date Chapin Lovell MD [address] [place] [address] [place] [address] [email or web address] PCP - General Internal Medicine 12/10/13 Chapin Lovell MD [address] [place] [address] [place] [address] [email or web address] Historical LMR Provider 12/04/16 Chapin Lovell MD [address] [place] [address] [email or web address] Insurance Assigned Provider 09/24/23 documented as of this encounter Additional Source Comments The information contained in this document represents components of the legal health record. It is not the complete legal health record.[facility]
== END 2025-03-25 12:28 | disposition home or self-care (01) ==
LOC: HO.XRAY 12:27
PROVIDERS: PCP Internal Medicine; Visit Provider Hospitalist
DX: M41.9 Scoliosis, unspecified (principal)
CPT/HCPCS: 71046

== ENCOUNTER → 2025-03-25 12:32 | Outpatient (BNV) | payer MEDICARE, SELFPAY | PROVIDERS: PCP Internal Medicine; Visit Provider Radiology Diagnostic Ultrasound | DX: M41.9 Scoliosis, unspecified (principal); J98.09 Other diseases of bronchus, not elsewhere classified | CPT/HCPCS: 71046 ==

== ENCOUNTER 2025-05-24 11:00 | Outpatient (REF) | payer MEDICARE, SELFPAY ==
--- NOTE | ~2025-05-24 | XR_ITS ---
EXAMINATION: XR CHEST CLINICAL INFORMATION: J98.4 - Other disorders of lung. COMPARISON: 03/25/2025, 12/03/2021. TECHNIQUE: 2 views of the chest were obtained. FINDINGS: The cardiac, hilar, and mediastinal contours are normal. Aortic mural calcifications. Lungs are diffusely hyperaerated, however clear bilaterally. Suggestion of mild peribronchial thickening in the right lower lung. There is no pneumothorax or pleural effusion. There is no focal osseous or soft tissue abnormality. There is S-shaped scoliosis with exaggerated lordosis of the thoracic spine. There is osteopenia. XR/XR chest 2V IMPRESSION: COPD. Suggestion of mild bronchial wall thickening in the right lower lung, possibly field representative/health education of chronic small airways disease. Lungs otherwise clear without segmental opacities. Electronically signed by: Caesar Marr MD 05/24/2025 12:06 PM MARISOL
--- NOTE | 2025-05-24 11:03 | PFT_ITS ---
Indication: Scoliosis Spirometry FEV1 to FVC 93%; FEV1 0.97 L; FVC 1.05 L. There is a significant response to bronchodilators noted Lung Volumes Total lung capacity 82% predicted; expiratory reserve volume 21% predicted Diffusion Capacity DLCO 78% predicted Flow Volume Loops Restrictive physiology MVV 82% predicted Comparison None Interpretation No definitive obstructive nor restrictive ventilatory defects identified. There is a significant response to bronchodilators noted. Pneumovax voluntary ventilation. Lung volumes are low normal and a significant decrease in the expiratory reserve volume likely secondary to history of scoliosis. The patient has a mild diffusion impairment. Clinical correlation warranted. MTDD
[2025-05-24 11:37] VITALS: PULSE 65
== END 2025-05-24 11:01 | disposition home or self-care (01) ==
LOC: HO.RESP 11:00
PROVIDERS: PCP Internal Medicine; Visit Provider Hospitalist
DX: J98.4 Other disorders of lung (principal); M41.9 Scoliosis, unspecified
CPT/HCPCS: 71046; 94060; 94640; 94727; 94729

== ENCOUNTER → 2025-05-24 11:03 | Outpatient (BNV) | payer MEDICARE, SELFPAY | PROVIDERS: PCP Internal Medicine; Visit Provider Hospitalist | DX: M41.9 Scoliosis, unspecified (principal) | CPT/HCPCS: 94060; 94727; 94729 ==

== ENCOUNTER → 2025-05-24 11:43 | Outpatient (BNV) | payer MEDICARE, SELFPAY | PROVIDERS: PCP Internal Medicine; Visit Provider Radiology Diagnostic Radiology | DX: J44.9 Chronic obstructive pulmonary disease, unspecified (principal) | CPT/HCPCS: 71046 ==

== ENCOUNTER 2025-05-30 13:30 | Outpatient (AMB) | payer MEDICARE, SELFPAY ==
[2025-05-30 13:35] VITALS: BP 152/84; PULSE 78; O2SAT 98; BMI 19.3
--- NOTE | 2025-05-30 13:35 | A.OFFVIS_ITS ---
Vital Signs 05/30/25 13:35 Height 4 ft 9 in Weight 89 lb 4.595 oz BMI 19.3 BP 152/84 H Blood Pressure Location Lt brachial Position Sitting Pulse 78 Pulse Source Pulse Oximeter Pulse Oximetry (%) 98 Oxygen Delivery Method Room Air Intake Visit Reasons: Wheezing/CXR & PFT Follow Up Accompanied by: Self / Same As Patient Allergies alendronate sodium (From Fosamax) Allergy (Mild, Verified 05/30/25 13:39) unknown HPI Comments Details: The patient is here for pulmonary evaluation of an abnormal CT scan of the abdomen. The patient is an 80 year woman with a known history of gastroparesis in addition to weight loss and scoliosis. She has been evaluated closely for her abdominal issues with GI. She had a CAT scan of the abdomen back in 2021 and also a CAT scan of the abdomen back in 2022. During those episodes she noted that in the bases of the lungs it mentions some pulmonary scarring. The patient did become concerned because of the risks of the pulmonary fibrosis and what it meant. Therefore a pulmonary referral was placed. Overall the patient has been doing good. Denies any exposures to any fumes or toxins. She smoked briefly for short period of time but not significantly. She may have been exposed to asbestos in it all house but did not really manipulate the asbestos. The patient denies any hobbies in working with organic or inorganic dust. The only pets that she has had were dogs. So overall she is doing okay except for the scoliosis. Throughout her life she has gotten physical therapy for that. She has noticed it has gotten worse. I did personally review the CT scan of the abdomen the lung windows demonstrating the minimal scarring primarily left more than right. This is likely due to her significant scoliosis causes some degree of restriction of her lung expansion. She also did have a chest x-ray which I personally reviewed from 2021 which demonstrated the scoliosis pretty significant and no evidence of any airspace disease or parenchymal disease. We did give her an incentive spirometer she was able to bring up the incentive spirometer of up to 800 mL suggesting that indeed she is restricted from breathing standpoint. Will have her undergo pulmonary function studies and will go ahead and repeat the chest x-ray. If her x-ray is abnormal will consider a CT scan of the chest. Is going to work on breathing techniques and breathing exercises as well as physical therapy for her back. The patient will follow-up in several months after she undergoes a repeat chest x-ray and PFTs. If she has any issues prior to this she can always call for further recommendations. 05/30/2025 the patient is here for pulmonary follow-up visit. She is anxious about her breathing studies. She did not feel like she did so well. She complains of shortness of breath sometimes she has coughing episodes. She is concerned about her worsening scoliosis. She had been doing physical therapy but then she got busy with other thinks her life and she had to stop. But she did find that helpful. I did also encourage her to work on deep breathing exercises again and I gave her the online pulmonary rehabilitation website. Also some video she can look at. I personally reviewed the PFTs with the patient. The patient does have what appears to be mild degree of restrictive lung disease and a mild diffusion impairment secondary to the scoliosis. But not too bad. She did have a significant response to bronchodilators noted. And I do believe short-acting beta agonist will be helpful for her to have specially since her x-ray also demonstrating some mosaic pattern suggesting the possibility of small airways disease. She also sick has significant scoliosis but appears to be stable when compared to previous. No evidence of any COPD which is reassuring. The patient will continue with physical therapy consider pulmonary rehabilitation. She will return for 6 months if any issues prior to this she can always call for further recommendations. Also to note she was concerned about pulmonary fibrosis. This is based on an MRI report of the [facility] that demonstrated some lung cuts up that was abnormal. I did review her CT scan with her demonstrating a very small amount of atelectasis/scarring and nothing for her to worry about. [facility] Medical History (Updated 03/17/25 @ 21:21 by Jerry Delacruz MD) Pulmonary scarring Atelectasis Chronic restrictive lung disease Scoliosis Hearing deficit IBS (irritable bowel syndrome) GERD (gastroesophageal reflux disease) Osteoporosis Surgical History Hx of appendectomy History of bilateral ligation of fallopian tubes Hx of colonoscopy History of esophagogastroduodenoscopy (EGD) Social History Household Members: None Housing: House Alcohol intake: current Alcohol intake frequency: holidays/special occasions only Patient Tobacco Use Status: Never used Tobacco service: No Current occupational status: unemployed Review of Systems Const Denies weight gain and Denies weight loss ENT Reports no additional complaints Card Reports no additional complaints Resp Reports no additional complaints GI Reports abdominal pain (LLQ) Reports no additional complaints Musc Reports no additional complaints Skin/Breast Denies rash Neuro Reports no additional complaints Psych Reports no additional complaints Endo Reports no additional complaints Physical Exam Vital Signs: Last Vital Signs Pulse 78 05/30/25 13:35 BP 152/84 H 05/30/25 13:35 Pulse Ox 98 05/30/25 13:35 Oxygen Delivery Method Room Air 05/30/25 13:35 BMI result Body Mass Index 19.3 Const General: healthy appearing and no acute distress Orientation/consciousness: patient oriented x3 HEENT Head: Yes normal to inspection and Yes normocephalic Face and sinus: Yes normal facial exam Mouth: Normal oral and palatal mucosa present Throat: Yes posterior oropharynx normal, Yes tonsils normal and Yes uvula midline Eyes General: appearance normal, both eyes and all related structures Neck Neck: Yes supple Thyroid: Thyroid normal Chest Chest palpation & inspection: abnormal inspection of the chest scoliotic Resp Effort & Inspection: normal respiratory effort, able to speak in complete sentences, no tracheal deviation and symmetric chest movement Auscultation: diminished lung sounds Cardio Rate: regular rate Heart sounds: S1 normal heart sound present, S2 normal heart sound present, no gallops and no murmurs GI Palpation (GI): Soft to palpation, not firm and nontender Auscultation: normal bowel sounds Back/Spine/Pelvis Thoracic/Lumbar Spine: Thoracic/lumbar scoliosis Skin General skin exam: no rashes or lesions noted Neuro General: patient oriented x3 Extrem General: Yes no clubbing, cyanosis or edema Psych Appearance: grossly normal Mental Status: mental status grossly normal Speech and movement: Normal speech and movement present Affect: Anxious affect present Attitude: cooperative Thought process: Normal thought process present Thought content: Normal thought content present Insight: Good insight present (Psych) Judgement: Good judgement present (Psych) Assessment & Plan Assessment & Plan (1) Scoliosis: Code(s): M41.9 - Scoliosis, unspecified Category: Medical Qualifiers: Scoliosis type: unspecified scoliosis Spinal region: unspecified Qualified Code(s): M41.9 - Scoliosis, unspecified (2) Chronic restrictive lung disease: Code(s): J98.4 - Other disorders of lung Category: Medical (3) Atelectasis: Code(s): J98.11 - Atelectasis Category: Medical (4) Pulmonary scarring: Code(s): J98.4 - Other disorders of lung Category: Medical Plan ISS Deep breathing exercises JOSE GUADALUPE as needed PT F/U 3-4 months Orders: Orders PT Evaluation and Treatment Today J98.4 - Other disorders of lung, M41.9 - Scoliosis, unspecified Coding Level of Care Code Add On Preventative Visit Only Diagnoses Scoliosis, unspecified scoliosis type, unspecified spinal region M41.9 Scoliosis type: unspecified scoliosis Spinal region: unspecified Chronic restrictive lung disease J98.4 Atelectasis J98.11 Pulmonary scarring J98.4 Time Spent (min) 18
== END 2025-05-30 14:19 | disposition home or self-care (01) ==
LOC: HO.HPS 13:31
PROVIDERS: PCP Internal Medicine; Visit Provider Hospitalist
DX: M41.9 Scoliosis, unspecified (principal); J98.4 Other disorders of lung; J98.11 Atelectasis
CPT/HCPCS: 99213; G2211

== ENCOUNTER → 2025-05-30 13:30 | Outpatient (BNVA) | payer MEDICARE, SELFPAY | PROVIDERS: PCP Internal Medicine; Visit Provider Hospitalist | DX: J98.4 Other disorders of lung (principal); J98.11 Atelectasis; M41.9 Scoliosis, unspecified | CPT/HCPCS: 99212 ==